=== PATIENT | male | born 1965 | race Caucasian/White ===

== ENCOUNTER → 2020-07-05 15:43 | Outpatient (BNVA) | payer MEDICAID, SELFPAY | PROVIDERS: PCP Internal Medicine; Visit Provider Urology | DX: N48.6 Induration penis plastica (principal) | CPT/HCPCS: 99212 ==

== ENCOUNTER → 2020-07-25 08:20 | Outpatient (BNVA) | payer MEDICAID, SELFPAY | PROVIDERS: PCP Internal Medicine; Visit Provider Nurse Practitioner ==

== ENCOUNTER → 2020-11-21 08:55 | Outpatient (BNVA) | payer MEDICAID, SELFPAY | PROVIDERS: PCP Registered Nurse Community Health; Visit Provider Nurse Practitioner ==

== ENCOUNTER → 2021-05-23 13:21 | Outpatient (BNVA) | payer MEDICAID, SELFPAY | PROVIDERS: PCP Registered Nurse Community Health; Visit Provider Nurse Practitioner | DX: K58.0 Irritable bowel syndrome with diarrhea (principal) ==

== ENCOUNTER → 2021-07-07 15:33 | Outpatient (BNVA) | payer MEDICAID, SELFPAY | PROVIDERS: PCP Registered Nurse Community Health; Visit Provider Urology | DX: N48.6 Induration penis plastica (principal); N52.9 Male erectile dysfunction, unspecified | CPT/HCPCS: 99212 ==

== ENCOUNTER → 2021-11-16 10:37 | Outpatient (BNVA) | payer MEDICAID, SELFPAY | PROVIDERS: PCP Registered Nurse Community Health; Visit Provider Surgery | DX: R10.31 Right lower quadrant pain (principal); G89.29 Other chronic pain | CPT/HCPCS: 99202 ==

== ENCOUNTER 2021-11-30 10:37 | Outpatient (REF) | payer MEDICAID, SELFPAY ==
--- NOTE | ~2021-11-30 | CT_ITS ---
EXAMINATION: CT ABDOMEN AND PELVIS WITHOUT CONTRAST CLINICAL INFORMATION: Right lower quadrant pain. COMPARISON: None. TECHNIQUE: Multidetector volumetric imaging was performed from the superior aspect of the liver through the pubic symphysis. Sagittal and coronal reformatted images were obtained on the technologist's workstation. This CT examination was performed using dose optimization techniques as appropriate, variously including the following: *Automated exposure control *Adjustment of mA and/or kV according to patient size (this includes techniques or standardized protocols for targeted exams where dose is matched to indication/reason for exam; i.e. extremities or head) *Use of iterative reconstruction technique DLP: 528 mGy-cm FINDINGS: LUNG BASES: The lung bases are clear. Heart size is normal. LIVER, GALLBLADDER, AND BILIARY TREE: The liver is normal in size, shape, and diffusely hypoattenuated. No focal hepatic lesion or biliary ductal dilatation is present. The gallbladder is unremarkable with no evidence of radiopaque gallstones, gallbladder wall thickening, or obvious pericholecystic inflammatory changes. PANCREAS: Unremarkable. SPLEEN: Unremarkable. ADRENAL GLANDS: Unremarkable. KIDNEYS AND URETERS: The kidneys are normal in size, shape, and attenuation. No hydronephrosis, hydroureter, or calculi seen. No perinephric stranding. BLADDER: Unremarkable. GASTROINTESTINAL TRACT: There is scattered stool in the colon and the small bowel loops without any distention. Appendix is not visualized. There is nonspecific mild fat stranding in the small bowel mesentery. ABDOMINAL WALL: No significant hernia is appreciated. LYMPH NODES: Normal. VASCULAR: Unremarkable. PELVIC VISCERA: Unremarkable. OSSEOUS STRUCTURES: There are degenerative disc changes with vacuum disc phenomena and ventral and posterior spondylosis. No aggressive lytic or sclerotic process seen. CT/CT abdomen pelvis wo con IMPRESSION: Diffuse hepatic steatosis without focal lesion. No radiopaque gallstones or radiopaque renal calculi or hydronephrosis. Appendix is not visualized. Mild constipation. Fleischner guidelines were followed.
== END 2021-11-30 10:38 | disposition home or self-care (01) ==
LOC: HO.CT 10:37
PROVIDERS: PCP Registered Nurse Community Health; Visit Provider Surgery
DX: R10.31 Right lower quadrant pain (principal); G89.29 Other chronic pain
CPT/HCPCS: 74176

== ENCOUNTER → 2021-12-11 14:41 | Outpatient (BNVA) | payer MEDICAID, SELFPAY | PROVIDERS: PCP Registered Nurse Community Health; Visit Provider Surgery | DX: R10.31 Right lower quadrant pain (principal); G89.29 Other chronic pain | CPT/HCPCS: 99212 ==

== ENCOUNTER 2021-12-18 12:29 | Outpatient (REF) | payer MEDICAID, SELFPAY ==
[2021-12-18 13:40] LABS: MANUAL DIFF FLAG NO
[2021-12-18 13:46] LABS: Basophils Absolute Auto 0.1 X10*3/uL (0.0-0.2); Basophils Percent Auto 0.6 % (0-2); Eosinophils Absolute Auto 0.3 X10*3/uL (0.0-0.4); Hemoglobin 14.2 g/dl (14.0-18.0); Imm Gran Abs Auto 0.03 X10*3/uL (0.00-0.03); Imm Gran Pct Auto 0.4 % (0.0-0.4); Lymphocytes Absolute Auto 3.1 X10*3/uL (1.2-4.9); Lymphocytes Percent Auto 37.2 % (20-40); Mean Corpuscular Hemoglobin 26.9 pg (27.0-33.0); Mean Corpuscular Volume 81.4 fL (80.0-98.0); Mean Platelet Volume 11.6 fL (9.4-12.4); Monocytes Absolute Auto 0.6 X10*3/uL (0.1-1.2); Monocytes Percent Auto 7.7 % (2-11); Neutrophils Absolute Auto 4.3 x10*3/uL (2.0-8.3); Neutrophils Percent Auto 51.1 % (45-73); Platelet Count 186 X10*3/uL (160-400); Red Blood Count 5.28 X10*6/uL (4.60-5.80); White Blood Count 8.4 X10*3/uL (4.8-10.8)
[2021-12-18 14:40] LABS: Alanine Aminotransferase 50 U/L (0-40); Albumin Level 4.4 g/dL (3.5-5.0); Alkaline Phosphatase 79 U/L (39-117); Anion Gap 13 (12-20); Aspartate Amino Transferase 31 U/L (5-37); Bilirubin Total 0.4 mg/dL (0.0-1.0); Blood Urea Nitrogen 11 mg/dL (9-16); Calcium 8.9 mg/dL (8.4-10.2); Carbon Dioxide 27 mmol/L (22-29); Chloride 99 mmol/L (96-108); Estimated Glomerular Filt Rate > 60; Glucose Random 176 mg/dL (60-115); Potassium 4.3 mmol/L (3.3-5.1); Sodium 135 mmol/L (135-145); Total Protein 7.2 g/dL (6.5-8.0)
== END 2021-12-18 12:30 | disposition home or self-care (01) ==
LOC: HO.LAB 12:29
PROVIDERS: PCP Registered Nurse Community Health; Referring Provider Registered Nurse Community Health; Visit Provider Nurse Practitioner
DX: K58.0 Irritable bowel syndrome with diarrhea (principal); K21.9 Gastro-esophageal reflux disease without esophagitis; K62.5 Hemorrhage of anus and rectum; Z80.0 Family history of malignant neoplasm of digestive organs
CPT/HCPCS: 36415; 80053; 85025; 99212

== ENCOUNTER 2022-03-20 10:33 | Day surgery (SDC) | payer MEDICAID, SELFPAY ==
[2022-03-15 12:26] VITALS: BMI 29.6
--- NOTE | 2022-03-19 11:53 | P.CONAN_ITS ---
Documented by User: Kanika Monge NP 03/19/22 11:55 HPI - Anesthesia Eval Consult details Narrative: 57yo M for [facility] Active Problems Active Problems: All Active Problems (Updated 11/16/21 @ 11:23 by Kian Artis MD) Peyronie's disease (Acute) Irritable bowel syndrome with diarrhea (Acute) Epigastric pain (Acute) Rectal bleeding (Acute) GERD (gastroesophageal reflux disease) (Acute) Family history of colon cancer (Acute) Erectile dysfunction (Acute) Chronic pain of right groin (Acute) Hyperlipidemia (Acute) Hypertension (Acute) Past Medical History Medical History Chronic pain of right groin History of left inguinal hernia Hyperlipidemia Hypertension Family History Family History Brother Diabetes Mother Cancer Father Heart problem Maternal Grandmother Colon polyps Surgical History Surgical History (Updated 03/15/22 @ 12:23 by Muriel Rodriguez RN) History of back surgery History of esophagogastroduodenoscopy (EGD) History of nasal surgery History of right inguinal hernia repair Hx of colonoscopy Social History Social History (Updated 12/18/21 @ 12:33 by Alayna Liao) Household Members: Spouse Alcohol intake: current Alcohol intake frequency: does not drink Patient Tobacco Use Status: Never used Tobacco Use of substances other than those prescribed or required for medical reasons: No Advance Directives: No Advance Directives Information Provided: Yes Meds Allergies Allergy/AdvReac Type Severity Reaction Status Date / Time acetaminophen Allergy Intermediate ANXIETY Verified 12/18/21 12:32 [From TYLENOL PM] celecoxib [From CELEBREX] Allergy Intermediate MALAISE Verified 12/18/21 12:32 diphenhydramine Allergy Intermediate ANXIETY Verified 12/18/21 12:32 [From TYLENOL PM] metoprolol [METOPROLOL] Allergy Intermediate RASH Verified 12/18/21 12:32 Home Medications Medication Instructions Recorded Confirmed Last Taken Type amlodipine 10 mg tablet 10 mg PO DAILY 11/16/21 12/11/21 Unknown History atenolol 50 mg tablet 50 mg PO DAILY 11/16/21 12/11/21 Unknown History fluticasone propionate 50 2 spray intranasal DAILY 11/16/21 12/11/21 Unknown History mcg/actuation nasal spray,suspension hydroxyzine HCl 50 mg tablet 50 mg PO TID PRN anxiety 11/16/21 12/11/21 Unknown History loratadine 10 mg tablet 10 mg PO DAILY PRN allergies 11/16/21 12/11/21 Unknown History risperidone 0.5 mg tablet 0.5 mg PO BID 11/16/21 12/11/21 Unknown History rosuvastatin 5 mg tablet 5 mg PO DAILY 11/16/21 12/11/21 Unknown History sertraline 100 mg tablet 200 mg PO DAILY 11/16/21 12/11/21 Unknown History Exam Exam Date and Time: March 19, 2022 1153 Height,Weight and Vital Signs: Height 5 ft 8 in Weight 88.451 kg Pertinent Lab Results Pertinent Lab Results: Laboratory Tests 12/18/21 12/18/21 13:39 Unknown WBC 8.4 Hgb 14.2 Hct 43.0 Plt Count 186 Sodium 135 Potassium 4.3 Chloride 99 Carbon Dioxide 27 BUN 11 Creatinine 1.08 Assessment and Plan Assessment Anesthesia Assessment: Chart Reviewed Documented by User: Jaime Medley MD 03/20/22 11:26 [facility] Past Medical History Medical History Chronic pain of right groin History of left inguinal hernia Hyperlipidemia Hypertension Family History Family History Brother Diabetes Mother Cancer Father Heart problem Maternal Grandmother Colon polyps Family history of problems with anesthesia: No Surgical History Surgical History (Updated 03/15/22 @ 12:23 by Muriel Rodriguez RN) History of back surgery History of esophagogastroduodenoscopy (EGD) History of nasal surgery History of right inguinal hernia repair Hx of colonoscopy History of Problems with Anesthesia: No Social History Social History (Updated 12/18/21 @ 12:33 by Alayna Liao) Household Members: Spouse Alcohol intake: current Alcohol intake frequency: does not drink Patient Tobacco Use Status: Never used Tobacco Use of substances other than those prescribed or required for medical reasons: No Advance Directives: No Advance Directives Information Provided: Yes Meds Allergies Allergy/AdvReac Type Severity Reaction Status Date / Time acetaminophen Allergy Intermediate ANXIETY Verified 12/18/21 12:32 [From TYLENOL PM] celecoxib [From CELEBREX] Allergy Intermediate MALAISE Verified 12/18/21 12:32 diphenhydramine Allergy Intermediate ANXIETY Verified 12/18/21 12:32 [From TYLENOL PM] metoprolol [METOPROLOL] Allergy Intermediate RASH Verified 12/18/21 12:32 Home Medications Medication Instructions Recorded Confirmed Last Taken Type amlodipine 10 mg tablet 10 mg PO DAILY 11/16/21 12/11/21 Unknown History atenolol 50 mg tablet 50 mg PO DAILY 11/16/21 12/11/21 Unknown History fluticasone propionate 50 2 spray intranasal DAILY 11/16/21 12/11/21 Unknown History mcg/actuation nasal spray,suspension hydroxyzine HCl 50 mg tablet 50 mg PO TID PRN anxiety 11/16/21 12/11/21 Unknown History loratadine 10 mg tablet 10 mg PO DAILY PRN allergies 11/16/21 12/11/21 Unknown History risperidone 0.5 mg tablet 0.5 mg PO BID 11/16/21 12/11/21 Unknown History rosuvastatin 5 mg tablet 5 mg PO DAILY 11/16/21 12/11/21 Unknown History sertraline 100 mg tablet 200 mg PO DAILY 11/16/21 12/11/21 Unknown History Exam Airway Mallampati Class: I TM Dist: >3cm Neck ROM: Full Heart: rrr Lungs: clear Assessment and Plan Final Anesthetic Review Family History of Problems with Anesthesia: No History of Problems with Anesthesia: No NPO: Yes ASA Class: II Final Preanesthetic Review: No Changes in Pt Med Stat, Meds/Allgs Chart Reviewed, Consent Obtained/Reviewed and Anes Risks/Benef Reviewed Patient Risk: Low Procedure Risk: Low Anesthetic Plan Anesthetic Plan: MAC: Disposition: Standard PACU
--- NOTE | 2022-03-20 10:43 | P.HPSUR_ITS ---
Pre-Procedural Eval Section A Date of Service: 03/20/22 Section B Chief Complaint: screening colonoscopy Details of Present Illness: patient denies Fh of CRC Relevant Family History (Specify if Yes): No Relevant Social History: Alcohol Use Present Medications: see Short Stay Collaborative assessment Medical History: Significant History (Chronic pain of right groin History of lef t inguinal hernia Hyperlipidemia Hypertension) History of Previous Operations: Relevant previous surgery/procedure and date(s) (History of back surgery History of esophagogastroduodenoscopy (EGD) History of nasal surgery History of right inguinal hernia repair Hx of colonoscopy) Allergies: Allergies Allergy/AdvReac Type Severity Reaction Status Date / Time acetaminophen Allergy Intermediate ANXIETY Verified 12/18/21 12:32 [From TYLENOL PM] celecoxib [From CELEBREX] Allergy Intermediate MALAISE Verified 12/18/21 12:32 diphenhydramine Allergy Intermediate ANXIETY Verified 12/18/21 12:32 [From TYLENOL PM] metoprolol [METOPROLOL] Allergy Intermediate RASH Verified 12/18/21 12:32 Review of Systems Sugical H&P ROS: Negative: Constitution, Cardiovascular, Respiratory, Neurological, Psychiatric, Hem-Onc, Allergic/Immunologic, Gastrointestinal, Genitourinary, Musculoskeletal, Integumentary, Endocrine and Eyes/Ears/Nose/Throat Exam Surgical H&P Exam: Normal: HEENT, Normal: Heart, Normal: Lungs, Normal: Extremities, Normal: Abdomen, Normal: Skin and Normal: Neurological Plan Diagnosis/Plan: Unchanged I have reviewed the history and physical and performed a pertinent physical examination on my patient. No changes have occurred unless specified.
[2022-03-20 11:07] VITALS: BP 135/77; PULSE 75; RESP 16; TEMP 36.8; O2SAT 96; BMI 28.8
--- NOTE | 2022-03-20 11:57 | P.OP_ITS ---
Operative Note Operative Note Date of Service: 03/20/22 Narrative: Operative Information Procedure Description: Colonoscopy Indication: screening Anesthesia: MAC COLONOSCOPY Instrument: Olympus variable stiffness pediatric scope 190L Colonoscopy Monitoring: Vital signs and clinical assessment, continuous EKG monitoring, Pulse oximetry, Carbon Dioxide monitoring and blood pressure monitoring were done throughout the procedure. Colon withdrawal time was 7 minutes. Procedure: The patient was placed in the left lateral decubitis position and pre-procedure medications were administered. After a digital rectal examination of the ano-rectum, the video colonoscope was inserted into the rectum and advanced through the colon to the cecum/TI. The colonoscope was slowly withdrawn in a retrograde panoramic fashion and the colon mucosa was carefully examined including a retroflexed view of the rectum. Findings and interventions are described below. Procedure Difficulty: easy Findings: Terminal Ileum-normal right sided retroflexion was normal Cecum:normal Ascending Colon: normal Transverse Colon -normal Descending Colon:normal Sigmoid Colon: mild diverticulosis Rectum: Retroflexion with small internal hemorrhoids, grade I with skin tags Anorectum - normal Colon preparation: [place] Bowel Preparation Scale Right colon; 2 Transverse colon: 3 Left colon; 3 (0 = Unprepared colon segment with mucosa not seen due to solid stool that cannot be cleared. 1 = Portion of mucosa of the colon segment seen, but other areas of the colon segment not well seen due to staining, residual stool and/or opaque liquid. 2 = Minor amount of residual staining, small fragments of stool and/or opaque liquid, but mucosa of colon segment seen well. 3 = Entire mucosa of colon segment seen well with no residual staining, small fragments of stool or opaque liquid) Impression and Post Procedure Diagnosis: internal hemorrhoids diverticular disease Plan: High fiber diet leaflet Avoid straining at stool, epsom salts and sitz bath, anusol supps or cream Repeat Colonoscopy in 5 years if pos FH of CRC is subsequently confirmed other carrizales 10 yrs or earlier if clinically indicated Above findings were reviewed with the patient and relevant handouts were provided if indicated.
[2022-03-20 12:00] VITALS: BP 109/67; PULSE 71; RESP 17; TEMP 36.3; O2SAT 94
[2022-03-20 12:15] VITALS: BP 120/66; PULSE 71; RESP 17; TEMP 36.3; O2SAT 98
== END 2022-03-20 13:10 | disposition home or self-care (01) ==
PROVIDERS: PCP Registered Nurse Community Health; Visit Provider Internal Medicine Gastroenterology
PROC: 0DJD8ZZ Inspection of Lower Intestinal Tract, Via Natural or Artificial Opening Endoscopic (ICD-10-PCS; CPT 45378; principal; 2022-03-20 11:40)
DX: Z12.11 Encounter for screening for malignant neoplasm of colon (principal); Z80.0 Family history of malignant neoplasm of digestive organs; K57.30 Diverticulosis of large intestine without perforation or abscess without bleeding; K64.0 First degree hemorrhoids; K64.4 Residual hemorrhoidal skin tags; K58.0 Irritable bowel syndrome with diarrhea; K21.9 Gastro-esophageal reflux disease without esophagitis; I10 Essential (primary) hypertension; E78.5 Hyperlipidemia, unspecified; Z79.899 Other long term (current) drug therapy
CPT/HCPCS: 45378

== ENCOUNTER → 2022-04-03 13:13 | Outpatient (BNVA) | payer MEDICAID, SELFPAY | PROVIDERS: PCP Registered Nurse Community Health; Visit Provider Nurse Practitioner | DX: K58.0 Irritable bowel syndrome with diarrhea (principal); K21.9 Gastro-esophageal reflux disease without esophagitis; Z80.0 Family history of malignant neoplasm of digestive organs; Z98.890 Other specified postprocedural states | CPT/HCPCS: 99212 ==

== ENCOUNTER 2022-07-04 08:41 | Outpatient (REF) | payer MEDICAID, SELFPAY ==
[2022-07-04 11:00] LABS: Prostate Specific Antigen 0.42 ng/mL (<0.05-4.0)
== END 2022-07-04 08:42 | disposition home or self-care (01) ==
LOC: HO.10HDL 08:41
PROVIDERS: Visit Provider Urology
DX: Z12.5 Encounter for screening for malignant neoplasm of prostate (principal); N13.8 Other obstructive and reflux uropathy; N40.1 Benign prostatic hyperplasia with lower urinary tract symptoms; N48.6 Induration penis plastica
CPT/HCPCS: 36415; 84153

== ENCOUNTER → 2022-07-10 15:18 | Outpatient (BNVA) | payer MEDICAID, SELFPAY | PROVIDERS: PCP Registered Nurse; Visit Provider Urology | DX: N52.9 Male erectile dysfunction, unspecified (principal); N48.6 Induration penis plastica | CPT/HCPCS: 99212 ==

== ENCOUNTER 2022-08-21 12:07 | Outpatient (REF) | payer MEDICAID, SELFPAY ==
--- NOTE | ~2022-08-21 | XR_ITS ---
EXAMINATION: XR CHEST CLINICAL INFORMATION: Cough COMPARISON: None TECHNIQUE: Chest 2 views FINDINGS: Normal cardiac and mediastinal silhouette. Central pulmonary vascularity is within normal limits. Hazy opacity in the medial aspect of the right lower lung, potentially within the right middle lobe, raising concern for infiltrate from infectious/inflammatory process.. No focal left lung consolidation. No effusion, edema or pneumothorax. XR/XR chest 2V IMPRESSION: Opacification of the medial aspect right lower lung, possibly in the right middle lobe, concerning for infiltrate from infectious/inflammatory process. Recommendation is for a follow-up chest series to be obtained following treatment and/or resolution of symptoms to assure resolution of this appearance.
== END 2022-08-21 12:08 | disposition home or self-care (01) ==
LOC: HO.XRAY 12:07
PROVIDERS: PCP Registered Nurse; Visit Provider Registered Nurse
DX: R05.2 Subacute cough (principal)
CPT/HCPCS: 71046

== ENCOUNTER → 2022-10-02 12:50 | Outpatient (BNVA) | payer MEDICAID, SELFPAY | PROVIDERS: PCP Registered Nurse; Visit Provider Nurse Practitioner | DX: K58.0 Irritable bowel syndrome with diarrhea (principal) | CPT/HCPCS: 99212 ==

== ENCOUNTER 2022-10-04 08:22 | Outpatient (REF) | payer MEDICAID, SELFPAY ==
[2022-10-04 09:20] LABS: Anion Gap 12 (12-20); Blood Urea Nitrogen 13 mg/dL (9-16); Calcium 9.2 mg/dL (8.4-10.2); Carbon Dioxide 29 mmol/L (22-29); Chloride 102 mmol/L (96-108); Estimated Glomerular Filt Rate > 60; Glucose Random 146 mg/dL (60-115); Potassium 4.3 mmol/L (3.3-5.1); Sodium 139 mmol/L (135-145)
== END 2022-10-04 08:23 | disposition home or self-care (01) ==
LOC: HO.LAB 08:22
PROVIDERS: Visit Provider Registered Nurse
DX: E11.9 Type 2 diabetes mellitus without complications (principal); R91.8 Other nonspecific abnormal finding of lung field
CPT/HCPCS: 36415; 80048

== ENCOUNTER 2022-10-16 14:53 | Outpatient (REF) | payer MEDICAID, SELFPAY ==
--- NOTE | ~2022-10-16 | CT_ITS ---
EXAMINATION: CT CHEST WITH CONTRAST CLINICAL INFORMATION: Follow-up lung opacity COMPARISON: Previous chest x-ray August 2022 and abdominal and pelvic CT November 2021 TECHNIQUE: Multidetector volumetric CT imaging of the chest was obtained after the administration of 65 mL of Omnipaque 350 intravenous contrast without immediate adverse reactions. Axial MIP volume rendering provided. Sagittal and coronal reformatted images were obtained. This CT examination was performed using dose optimization techniques as appropriate, variously including the following: *Automated exposure control *Adjustment of mA and/or kV according to patient size (this includes techniques or standardized protocols for targeted exams where dose is matched to indication/reason for exam; i.e. extremities or head) *Use of iterative reconstruction technique DLP: 140 mGy-cm FINDINGS: LUNGS: 2 mm calcified right upper lobe nodule, axial image 30 series 5. 2 mm calcified right upper lobe nodule, axial image 93 series 5. 2 mm calcified nodule in the right lower lobe, axial image 160 series 5. Scarring or subsegmental atelectasis in the medial right middle and right upper lobes. MEDIASTINUM: The mediastinum is normal. PLEURA: There is no pleural effusion. No pleural mass or thickening. AXILLA: No lymphadenopathy. UPPER ABDOMEN: There is fatty infiltration of the liver. There is a round area of increased attenuation high in the left lobe of the liver near the hepatovenous confluence; for example, axial image 53 series 3, measuring approximately 3.5 cm. This is difficult to compare with noncontrast enhanced CT November 2021. This may represent atypical appearance of focal fatty sparing. Small calcifications in the pancreas. OSSEOUS STRUCTURES: Posttraumatic versus congenital changes to the left 4th rib. CT/CT chest w IV con IMPRESSION: Small calcified pulmonary nodules probably representing granulomas. Atelectasis or scarring in the right upper and middle lobes. Fatty liver. Question atypical appearance of focal fatty sparing in the left lobe of the liver. Follow-up liver MRI to exclude a focal lesion should be considered. Fleischner guidelines were followed.
[2022-10-16] MEDS: iohexoL 350 MG/ML 100 ML INFUS..BTL IV (16:04)
== END 2022-10-16 14:54 | disposition home or self-care (01) ==
LOC: HO.CT 14:53
PROVIDERS: PCP Registered Nurse; Visit Provider Registered Nurse
DX: R91.8 Other nonspecific abnormal finding of lung field (principal)
CPT/HCPCS: 71260; Q9967

== ENCOUNTER → 2022-11-27 14:41 | Outpatient (BNVA) | payer MEDICAID, SELFPAY | PROVIDERS: PCP Registered Nurse; Visit Provider Nurse Practitioner | DX: K58.0 Irritable bowel syndrome with diarrhea (principal); K21.9 Gastro-esophageal reflux disease without esophagitis; Z79.899 Other long term (current) drug therapy | CPT/HCPCS: 99212 ==

== ENCOUNTER 2023-05-24 09:35 | Outpatient (REF) | payer MEDICAID, SELFPAY ==
--- NOTE | ~2023-05-24 | MR_ITS ---
EXAMINATION: MR ABDOMEN WITHOUT AND WITH CONTRAST CLINICAL INFORMATION: Hepatic steatosis left lobe COMPARISON: Previous CT of the abdomen and pelvis November 2021 TECHNIQUE: MR abdomen was performed without and with use of 8 mL intravenous Gadavist gadolinium contrast. Postcontrast images are performed in multiphase dynamic sequences. Imaging was performed in 3 planes. FINDINGS: LUNG BASES: The visualized lung bases are unremarkable. LIVER, GALLBLADDER, AND BILIARY TREE: The liver is normal in size, shape and contour. There is heterogeneous fatty infiltration. There is increased enhancement seen in the lateral segment of the left lobe of the liver on early arterial phase imaging only. This was not seen on later sequences or noncontrast sequences. This probably represents a vascular shunt transient perfusion effect. No other focal liver lesion. The gallbladder is normal. No intra or extrahepatic biliary duct dilatation. PANCREAS: Unremarkable. SPLEEN: Normal. ADRENAL GLANDS: Normal. KIDNEYS AND URETERS: The kidneys are normal in size, shape, and enhance symmetrically. No hydronephrosis. No perinephric stranding. GASTROINTESTINAL TRACT: No bowel obstruction. No ascites or fluid collection. ABDOMINAL WALL: No significant hernia is appreciated. LYMPH NODES: No lymphadenopathy. VASCULAR: Unremarkable. OSSEOUS STRUCTURES: Degenerative disc disease of the lower lumbar spine. There is slight increased T2 disc and endplate signal and enhancement at L4-L5. Clinically correlate to exclude possible discitis. Dedicated lumbar spine MRI could be performed if clinically indicated for further evaluation. MR/MR abdomen wo/w con IMPRESSION: Heterogeneous fatty infiltration of the liver. Probable vascular shunt or transient perfusion effect in the lateral segment of the left lobe of the liver. No other focal liver lesion. Abnormal signal and enhancement at L4-L5. Discitis should be excluded. Clinical correlation recommended. This could be further evaluated with lumbar spine MRI if clinically indicated. Findings will be communicated by the [facility]
[2023-05-24] MEDS: gadobutroL 10 ML VIAL IVPUSH (10:38)
== END 2023-05-24 09:36 | disposition home or self-care (01) ==
LOC: HO.MRI 09:35
PROVIDERS: PCP Registered Nurse; Visit Provider Registered Nurse
DX: K76.0 Fatty (change of) liver, not elsewhere classified (principal); E11.9 Type 2 diabetes mellitus without complications
CPT/HCPCS: 74183; A9585

== ENCOUNTER 2023-05-30 09:44 | Outpatient (AMB) | payer MEDICAID, SELFPAY ==
--- NOTE | 2023-05-30 09:48 | MHC.OFFVIS ---
Intake Vital Signs 05/30/23 09:49 Pulse 62 Intake Visit Reasons: 6 months follow up Intake Note: Patient presents to in office visit today in 6 months follow up of IBS. CC: Patient reports doing the same and denies having any new GI concerns today. Enterprise Sales Person Required: Yes Accompanied by: Self / Same As Patient Allergies acetaminophen [From TYLENOL PM] Allergy (Intermediate, Verified 11/27/22 14:51) ANXIETY celecoxib [From CELEBREX] Allergy (Intermediate, Verified 11/27/22 14:51) MALAISE diphenhydramine [From TYLENOL PM] Allergy (Intermediate, Verified 11/27/22 14:51) ANXIETY metoprolol [METOPROLOL] Allergy (Intermediate, Verified 11/27/22 14:51) RASH HPI 6 months follow up HPI Details Assessment & Plan (1) Irritable bowel syndrome with diarrhea: Code(s): K58.0 - Irritable bowel syndrome with diarrhea Plan: Micronesian #More Live He had COVID 3 weeks ago and it was very bad! But he is recovering well now. He has been working at losing weight with his NIDDM dx - his has me on an diet! He does not want to be on insulin. He is only taking the bentyl bid with occasional prn additional dose and he wants me to decrease the amt. I will. ROV 6 mos. (2) GERD (gastroesophageal reflux disease): Comment: He appears was resolved with restoring bowel motility Code(s): K21.9 - Gastro-esophageal reflux disease without esophagitis Medications: Changed From dicyclomine 20 mg PO QID 120 tabs 6RF for abdom inal pain K58.0 - Irritable bowel syndrome wit h diarrhea To dicyclomine 20 mg PO TID 90 t abs 6RF for abdomi nal pain K58.0 - Irritable bowel syndrome wit h diarrhea TODAYS VISIT Florian Garcia Live He is doing much better! His is fixing his knee oatmeal more thickly and this is helping his bowels. He also continues on his dicyclomine which she finds very helpful when he has pain or cramping. He tells me that his PCP at [facility] ordered an MRI of his liver, he is unsure why except I have fat in my liver and something else. The MRI has not yet been read yet by radiology - I will look for this. Return office visit in 6 months. [facility] Medical History Chronic pain of right groin History of left inguinal hernia Hyperlipidemia Hypertension Surgical History History of back surgery History of esophagogastroduodenoscopy (EGD) History of nasal surgery History of right inguinal hernia repair Hx of colonoscopy Family History Brother Diabetes Mother Cancer Father Heart problem Maternal Grandmother Colon polyps Social History Household Members: Spouse Alcohol intake: current Alcohol intake frequency: does not drink Patient Tobacco Use Status: Never used Tobacco Review of Systems Const Denies fatigue, Denies fever(s), Denies night sweats, Denies poor appetite and Denies weight loss Eyes Details: glasses Reports requires corrective lenses ENT Reports Normal hearing present, Denies dental pain, Denies dysphagia, Denies hearing loss, Denies mouth pain, Denies odynophagia, Denies throat swelling, Denies tongue swelling and Reports other (Dentition adequate) Card Reports no additional complaints Resp Reports no additional complaints GI Denies abdominal pain, Denies melena, Denies bloating, Denies hematochezia, Denies constipation, Reports GI cramping, Denies dysphagia, Denies excessive flatus, Denies early satiety, Denies heartburn, Reports diarrhea, Denies nausea, Denies odynophagia, Denies vomiting and Denies hematemesis Skin/Breast Denies pruritus, Denies lesions, Denies rash and Denies jaundice Neuro Reports Normal hearing present and Denies Abnormal speech present Endo Denies fatigue Aller/Immun Denies throat swelling and Denies tongue swelling Physical Exam Vital Signs: Last Vital Signs Pulse 62 05/30/23 09:49 BMI result Body Mass Index 28.0 Const General: cooperative, no acute distress, well developed and well groomed Nutritional Appearance: average body habitus and well nourished Orientation/consciousness: oriented to person, oriented to place and oriented to time Limitations: language barrier HEENT Head: Yes normocephalic and Yes atraumatic Eyes General: appearance normal, both eyes and all related structures Pupils: Equal, round and reactive pupils present Neck Neck: Yes normal visual inspection and Yes no lymphadenopathy Thyroid: Thyroid normal Resp Effort & Inspection: normal respiratory effort and able to speak in complete sentences Auscultation: clear to auscultation bilaterally Cardio Rate: regular rate Rhythm: regular rhythm Heart sounds: Normal, physiologic split S2 sound present Peripheral pulses: radial pulses present and posterior tibial pulses present GI Inspection: No distended and No Abdominal panniculus present Palpation (GI): Soft to palpation, nontender, no guarding, not rigid and No hepatosplenomegaly present Percussion: Yes normal to percussion Auscultation: normal bowel sounds Rectal Exam - Male: Yes deferred Skin General skin exam: no rashes or lesions noted, turgor normal, skin not dry, no jaundice, No spider nevi and no striae Rashes: no rashes Nails: normal Neuro General: oriented to person, oriented to place and oriented to time Cranial nerves: Yes Equal, round and reactive pupils present and Yes Normal hearing present Speech: No Abnormal speech present Extrem General: Yes normal to inspection, No clubbing, No cyanosis and No edema Psych Appearance: grossly normal and well kempt Mental Status: mental status grossly normal Speech and movement: Normal speech and movement present Affect: normal affect Attitude: cooperative Thought process: Normal thought process present and not confabulating Thought content: Normal thought content present Insight: Limited insight present (Psych) Judgement: Limited judgement present (Psych) Assessment & Plan Assessment & Plan (1) Irritable bowel syndrome with diarrhea: Code(s): K58.0 - Irritable bowel syndrome with diarrhea Plan: Micronesian #Randee Live He is doing much better! His is fixing his knee oatmeal more thickly and this is helping his bowels. He also continues on his dicyclomine which she finds very helpful when he has pain or cramping. He tells me that his PCP at [facility] ordered an MRI of his liver, he is unsure why except I have fat in my liver and something else. The MRI has not yet been read yet by radiology - I will look for this. Return office visit in 6 months. (2) GERD (gastroesophageal reflux disease): Comment: He appears was resolved with restoring bowel motility Code(s): K21.9 - Gastro-esophageal reflux disease without esophagitis (3) Epigastric pain: Code(s): R10.13 - Epigastric pain (4) Rectal bleeding: Code(s): K62.5 - Hemorrhage of anus and rectum (5) Family history of colon cancer: Comment: 2021 scope negative repeat 5 years, scope 2018 sessile hyperplastic polyps Code(s): Z80.0 - Family history of malignant neoplasm of digestive organs Plan Micronesian #Randee Live He is doing much better! His is fixing his knee oatmeal more thickly and this is helping his bowels. He also continues on his dicyclomine which she finds very helpful when he has pain or cramping. He tells me that his PCP at [facility] ordered an MRI of his liver, he is unsure why except I have fat in my liver and something else. The MRI has not yet been read yet by radiology - I will look for this. Return office visit in 6 months. Medications: Refilled dicyclomine 20 mg PO TID 90 tabs 6RF for abdominal pain K58.0 - Irritable bowel syndrome with diarrhea Coding Level of Care Code Est Pt Level 3 (90593) Diagnoses Irritable bowel syndrome with diarrhea K58.0 GERD (gastroesophageal reflux disease) K21.9 Epigastric pain R10.13 Rectal bleeding K62.5 Family history of colon cancer Z80.0
[2023-05-30 09:49] VITALS: PULSE 62
== END 2023-05-30 12:57 | disposition home or self-care (01) ==
PROVIDERS: Visit Provider Nurse Practitioner
DX: K58.0 Irritable bowel syndrome with diarrhea (principal); K21.9 Gastro-esophageal reflux disease without esophagitis; K62.5 Hemorrhage of anus and rectum; Z80.0 Family history of malignant neoplasm of digestive organs
CPT/HCPCS: 99213

== ENCOUNTER → 2023-05-30 09:44 | Outpatient (BNVA) | payer MEDICAID, SELFPAY | PROVIDERS: Visit Provider Nurse Practitioner | DX: K58.0 Irritable bowel syndrome with diarrhea (principal); K21.9 Gastro-esophageal reflux disease without esophagitis; K62.5 Hemorrhage of anus and rectum; R10.13 Epigastric pain; Z80.0 Family history of malignant neoplasm of digestive organs | CPT/HCPCS: 99212 ==

== ENCOUNTER 2023-07-03 07:52 | Outpatient (REF) | payer MEDICAID, SELFPAY ==
[2023-07-03 10:21] LABS: Prostate Specific Antigen 0.37 ng/mL (<0.05-4.0)
== END 2023-07-03 07:53 | disposition home or self-care (01) ==
LOC: HO.LAB 07:52
PROVIDERS: PCP Registered Nurse; Visit Provider Urology
DX: N48.6 Induration penis plastica (principal)
CPT/HCPCS: 36415; 84153

== ENCOUNTER 2023-09-13 14:53 | Outpatient (AMB) | payer MEDICAID, SELFPAY ==
--- NOTE | 2023-09-13 15:41 | A.OFFVIS_ITS ---
Intake Intake Visit Reasons: 1Y PSA(set) Intake Note: Patient presents today for a yearly follow-up on PSA Meds- None Allergies to Antibiotic- No Known Allergies Blood Thinner- None Pot Firer Required: Yes Accompanied by: Self / Same As Patient Allergies acetaminophen [From TYLENOL PM] Allergy (Intermediate, Verified 09/13/23 15:45) ANXIETY celecoxib [From CELEBREX] Allergy (Intermediate, Verified 09/13/23 15:45) MALAISE diphenhydramine [From TYLENOL PM] Allergy (Intermediate, Verified 09/13/23 15:45) ANXIETY metoprolol [METOPROLOL] Allergy (Intermediate, Verified 09/13/23 15:45) RASH HPI HPI Comments History of Present Illness Details Nishant is a pleasant male. He is a patient of Dr. Blair. He is seen for the following urologic conditions - Peyronie's disease Yearly evaluation for Peyronie's PSA less than 1. Age 58 can space out checks to every 2-3 years. Peyronie's Disease: PSA 06/18 0.4, 06/21 0.4, 07/24 0.4 Plaque stable with CABRERA and antiinflammatory medications Happy with results. The patient presents for followup up evaluation for penile disorder - improvement with CABRERA - happy with stable issue Primary complaint is penile curvature, dorsally, to the right, Peyronie's disease. The problem has been present starts 10/16. At this time he experiences partial erections sufficient for penetrative intercourse, that last until ejaculation. [place] has is unaffected. Associated symptoms include penile pain No Prior management includes 12/16 vaccum protocol. Strength of urinary stream no change. Associated conditions history of penile trauma No CAD No diabetes No erectile dysfunction No hypertension No peripheral vascular disease No Natural history of Peyronie's and treatment options have bee observation, use of vacuum device protocol, use of inflammatory rollway man. [facility] Medical History Chronic pain of right groin Hyperlipidemia Hypertension History of left inguinal hernia Surgical History History of right inguinal hernia repair History of esophagogastroduodenoscopy (EGD) Hx of colonoscopy History of nasal surgery History of back surgery Family History Brother Diabetes Mother Cancer Father Heart problem Maternal Grandmother Colon polyps Social History Household Members: Spouse Alcohol intake: current Alcohol intake frequency: does not drink Patient Tobacco Use Status: Never used Tobacco Review of Systems Const Denies chills and Denies fever(s) Card Reports no additional complaints and Denies syncope Resp Denies cough GI Denies abdominal pain and Denies heartburn Reports as per HPI and Denies change in libido Neuro Denies syncope Psych Denies change in libido Endo Denies change in libido Physical Exam Const General: cooperative, healthy appearing, comfortable and no acute distress Orientation/consciousness: patient oriented x3 HEENT Face and sinus: Yes normal facial exam Mouth: moist mucous membranes Neck Neck: Yes normal visual inspection, Yes full ROM and Yes trachea midline Chest Chest palpation & inspection: normal inspection of the chest Resp Effort & Inspection: normal respiratory effort, able to speak in complete sentences and no respiratory distress GI Inspection: Yes normal to inspection Back/Spine/Pelvis Cervical Spine: normal cervical lordosis Thoracic/Lumbar Spine: thoracic and lumbar spine normal to inspection Skin General skin exam: no rashes or lesions noted Neuro General: patient oriented x3, gait normal, tone normal and moves all extremities Extrem General: Yes normal to inspection and Yes capillary refill normal Assessment & Plan Assessment & Plan (1) Erectile dysfunction: Code(s): N52.9 - Male erectile dysfunction, unspecified (2) Peyronie's disease: Code(s): N48.6 - Induration penis plastica Plan Twelve month follow-up Patient Instructions: Imaging studies, laboratory and physical exam results were discussed and reviewed in detail. No major barriers to patient understanding were identified. An opportunity to ask questions regarding the treatment plan was provided. All questions were answered. The patient expressed understanding and agreement with the above treatment plan. The patient is aware they should contact our office by phone for worsening of their current condition or the appearance of new urologic symptoms. Compliance is encouraged with any medications and followup testing that is ordered. It is a privilege to participate in the urologic care of your patient. If you have any questions or concerns regarding treatment for the above conditions, or other urologic issues, please do not hesitate to contact me. The office telephone contact is [phone]. This note is constructed using voice recognition software. While every effort has been made to ensure accuracy connie scratcher errors may have been included. Yours sincerely, Dr Jens Rosa MD, [facility] - Urology Providers of Expert, Compassionate Care for the Genitourinary System Coding Level of Care Code Est Pt Level 4 (89074) Diagnoses Erectile dysfunction N52.9 Peyronie's disease N48.6
== END 2023-09-13 16:17 | disposition home or self-care (01) ==
PROVIDERS: Visit Provider Urology
DX: N52.9 Male erectile dysfunction, unspecified (principal); N48.6 Induration penis plastica
CPT/HCPCS: 99213

== ENCOUNTER → 2023-09-13 14:53 | Outpatient (BNVA) | payer MEDICAID, SELFPAY | PROVIDERS: Visit Provider Urology | DX: N52.9 Male erectile dysfunction, unspecified (principal); N48.6 Induration penis plastica | CPT/HCPCS: 99212 ==

== ENCOUNTER 2023-10-07 08:26 | Outpatient (REF) | payer MEDICAID, SELFPAY ==
[2023-10-07 11:37] LABS: MANUAL DIFF FLAG NO
[2023-10-07 11:48] LABS: Basophils Percent Auto 0.5 % (0-2); Eosinophils Absolute Auto 0.2 X10*3/uL (0.0-0.4); Eosinophils Percent Auto 2.9 % (0-4); Hematocrit 45.9 % (42.0-52.0); Hemoglobin 15.3 g/dl (14.0-18.0); Imm Gran Abs Auto 0.03 X10*3/uL (0.00-0.03); Imm Gran Pct Auto 0.4 % (0.0-0.4); Lymphocytes Absolute Auto 2.9 X10*3/uL (1.2-4.9); Lymphocytes Percent Auto 38.2 % (20-40); Mean Corpuscular HGB Conc 33.3 g/dl (31.0-36.0); Mean Corpuscular Hemoglobin 27.8 pg (27.0-33.0); Mean Corpuscular Volume 83.3 fL (80.0-98.0); Mean Platelet Volume 12.6 fL (9.4-12.4); Monocytes Absolute Auto 0.4 X10*3/uL (0.1-1.2); Monocytes Percent Auto 5.5 % (2-11); Neutrophils Percent Auto 52.5 % (45-73); Platelet Count 196 X10*3/uL (160-400); Red Blood Count 5.51 X10*6/uL (4.60-5.80); Red Cell Distribution Width 13.1 % (11.0-16.0); White Blood Count 7.6 X10*3/uL (4.8-10.8)
[2023-10-07 12:24] LABS: Rheumatoid Factor 56.4 IU/mL (<15.0)
[2023-10-07 12:29] LABS: Erythrocyte Sedimentation Rate 2 MM/HR (0-15)
[2023-10-07 12:45] LABS: Alanine Aminotransferase 25 U/L (0-40); Albumin Level 4.5 g/dL (3.5-5.0); Alkaline Phosphatase 66 U/L (39-117); Anion Gap 9 (12-20); Aspartate Amino Transferase 21 U/L (5-37); Bilirubin Direct 0.2 mg/dL (0.0-0.5); Bilirubin Total 0.4 mg/dL (0.0-1.0); Blood Urea Nitrogen 12 mg/dL (9-16); C Reactive Protein 0.14 mg/dL (< or = 0.50); Calcium 9.2 mg/dL (8.4-10.2); Carbon Dioxide 31 mmol/L (22-29); Chloride 104 mmol/L (96-108); Cholesterol 142 mg/dL (<200); Estimated Glomerular Filt Rate > 60; Glucose Random 125 mg/dL (60-115); HDL Cholesterol 42 mg/dL (>40); LDL Cholesterol Calculated 75 mg/dL (<100); Potassium 3.9 mmol/L (3.3-5.1); Sodium 140 mmol/L (135-145); Total Protein 7.5 g/dL (6.5-8.0); Triglycerides 125 mg/dL (<150)
[2023-10-07 12:51] LABS: Creatinine Urine 111.96 mg/dL; Microalbum/Creatinine Ratio Ur 5.3 ug/mg cr (<30)
[2023-10-07 13:02] LABS: TSH reflex Free T4 1.68 uIU/mL (0.32-4.0)
[2023-10-09 15:33] LABS: Anti Nuclear Antibody Screen NEGATIVE (NEGATIVE)
[2023-10-12 18:34] LABS: FIB-ALT 22 U/L (9-46); FIB-Alpha-2-Macroglobulin 122 mg/dL (106-279); FIB-Apolipoprotein A1 171 mg/dL (94-176); FIB-GGT 29 U/L (3-85); FIB-Haptoglobin 88 mg/dL (43-212); FIB-Total Bilirubin 0.4 mg/dL (0.2-1.2); Liver Fibrosis Stage F0; Nec Inflam Act Grade A0; Nec Inflam Act Score 0.07
== END 2023-10-07 08:27 | disposition home or self-care (01) ==
LOC: HO.HHCL 08:26
PROVIDERS: Visit Provider Registered Nurse
DX: Z00.00 Encounter for general adult medical examination without abnormal findings (principal); R52 Pain, unspecified; I10 Essential (primary) hypertension; K76.0 Fatty (change of) liver, not elsewhere classified
CPT/HCPCS: 36415; 80048; 80061; 80076; 81596; 82043; 82570; 84443; 85025; 85652; 86038; 86140; 86431

== ENCOUNTER 2023-11-26 14:49 | Outpatient (AMB) | payer MEDICAID, SELFPAY ==
--- NOTE | 2023-11-26 14:51 | MHC.OFFVIS ---
Vital Signs 11/26/23 14:52 Height 5 ft 8 in Weight 184 lb BMI 28.0 BP 136/82 Blood Pressure Location Lt brachial Position Sitting Pulse 68 Intake Visit Reasons: 6 month follow up Intake Note: Nishant presents to in office 6 months follow up of IBS. CC: Patient states that he was told after having labs done recently that he has a rheumatic condition. He states he has an upcoming appointment with aircraft metalsmith. Financial Foundations Associate Required: Yes Accompanied by: Self / Same As Patient Allergies acetaminophen [From TYLENOL PM] Allergy (Intermediate, Verified 11/26/23 15:02) ANXIETY celecoxib [From CELEBREX] Allergy (Intermediate, Verified 11/26/23 15:02) MALAISE diphenhydramine [From TYLENOL PM] Allergy (Intermediate, Verified 11/26/23 15:02) ANXIETY metoprolol [METOPROLOL] Allergy (Intermediate, Verified 11/26/23 15:02) RASH HPI HPI 6 month follow up: Details: Assessment & Plan (1) Irritable bowel syndrome with diarrhea: Code(s): K58.0 - Irritable bowel syndrome with diarrhea Plan: Croatian #Randee Live He is doing much better! His is fixing his knee oatmeal more thickly and this is helping his bowels. He also continues on his dicyclomine which she finds very helpful when he has pain or cramping. He tells me that his PCP at [facility] ordered an MRI of his liver, he is unsure why except I have fat in my liver and something else. The MRI has not yet been read yet by radiology - I will look for this. Return office visit in 6 months. (2) GERD (gastroesophageal reflux disease): Comment: He appears was resolved with restoring bowel motility Code(s): K21.9 - Gastro-esophageal reflux disease without esophagitis (3) Epigastric pain: Code(s): R10.13 - Epigastric pain (4) Rectal bleeding: Code(s): K62.5 - Hemorrhage of anus and rectum (5) Family history of colon cancer: Comment: 2021 scope negative repeat 5 years, scope 2018 sessile hyperplastic polyps Code(s): Z80.0 - Family history of malignant neoplasm of digestive organs Plan Croatian #Randee Live He is doing much better! His is fixing steel cut oatmeal more thickly and this is helping his bowels. He also continues on his dicyclomine which she finds very helpful when he has pain or cramping. He tells me that his PCP at [facility] ordered an MRI of his liver, he is unsure why except I have fat in my liver and something else. The MRI has not yet been read yet by radiology - I will look for this. Return office visit in 6 months. Medications: Refilled dicyclomine 20 mg PO TID 90 tabs 6RF for abdominal pain K58.0 - Irritable bowel syndrome with diarrhea TODAY'S VISIT Croatian #Ford Knight He says that he has been having pain all over his body, and he had an elevated RF and will be seeing rheumatology. He frequently has pain in the top and bottom of the right food, in the ribs and chest and elbows/shoulders. He is still finding the bentyl helpful for his cramping/IBS ROV 6 mos. [facility] Medical History (Updated 11/26/23 @ 15:05 by AMANUEL Hickman) Diabetes mellitus Chronic pain of right groin Hyperlipidemia Hypertension History of left inguinal hernia Surgical History History of right inguinal hernia repair History of esophagogastroduodenoscopy (EGD) Hx of colonoscopy History of nasal surgery History of back surgery Family History Brother Diabetes Mother Cancer Father Heart problem Maternal Grandmother Colon polyps Social History Household Members: Spouse Alcohol intake: current Alcohol intake frequency: does not drink Patient Tobacco Use Status: Never used Tobacco Review of Systems Const Denies fatigue, Denies fever(s), Denies night sweats, Denies poor appetite and Denies weight loss Eyes Details: glasses Reports requires corrective lenses ENT Reports Normal hearing present, Denies dental pain, Denies dysphagia, Denies hearing loss, Denies mouth pain, Denies odynophagia, Denies throat swelling, Denies tongue swelling and Reports other (Dentition adequate) Card Reports chest pain Resp Reports no additional complaints GI Details: Denies abdominal pain, Denies melena, Denies bloating, Denies hematochezia, Denies constipation, Reports GI cramping, Denies dysphagia, Denies excessive flatus, Denies early satiety, Denies heartburn, Denies diarrhea, Denies nausea, Denies odynophagia, Denies vomiting and Denies hematemesis Musc Reports back pain, Reports myalgias and Reports arthralgias Skin/Breast Denies pruritus, Denies lesions, Denies rash and Denies jaundice Neuro Reports Normal hearing present and Denies Abnormal speech present Endo Denies fatigue Aller/Immun Denies throat swelling and Denies tongue swelling Physical Exam Vital Signs: Last Vital Signs Pulse 68 11/26/23 14:52 BP 136/82 11/26/23 14:52 BMI result Body Mass Index 28.0 Const General: cooperative, no acute distress, well developed and well groomed Nutritional Appearance: well nourished and overweight Orientation/consciousness: oriented to person, oriented to place and oriented to time Limitations: language barrier and ambulation with cane HEENT Head: Yes normocephalic and Yes atraumatic Eyes General: appearance normal, both eyes and all related structures Pupils: Equal, round and reactive pupils present Neck Neck: Yes normal visual inspection and Yes no lymphadenopathy Thyroid: Thyroid normal Resp Effort & Inspection: normal respiratory effort and able to speak in complete sentences Auscultation: clear to auscultation bilaterally Cardio Rate: regular rate Rhythm: regular rhythm Heart sounds: Normal, physiologic split S2 sound present Peripheral pulses: radial pulses present and posterior tibial pulses present GI Inspection: No distended and No Abdominal panniculus present Palpation (GI): Soft to palpation, nontender, no guarding, not rigid and No hepatosplenomegaly present Percussion: Yes normal to percussion Auscultation: normal bowel sounds Rectal Exam - Male: Yes deferred Skin General skin exam: no rashes or lesions noted, turgor normal, skin not dry, no jaundice, No spider nevi and no striae Rashes: no rashes Nails: normal Neuro General: oriented to person, oriented to place and oriented to time Cranial nerves: Yes Equal, round and reactive pupils present and Yes Normal hearing present Speech: No Abnormal speech present Extrem General: Yes normal to inspection, No clubbing, No cyanosis and No edema Psych Appearance: grossly normal and well kempt Mental Status: mental status grossly normal Speech and movement: Normal speech and movement present Affect: normal affect Attitude: cooperative Thought process: Normal thought process present and not confabulating Thought content: Normal thought content present Insight: Fair insight present (Psych) and Limited insight present (Psych) Judgement: Fair judgement present (Psych) and Limited judgement present (Psych) Assessment & Plan Assessment & Plan (1) Irritable bowel syndrome with diarrhea: Code(s): K58.0 - Irritable bowel syndrome with diarrhea Category: Medical (2) GERD (gastroesophageal reflux disease): Comment: He appears was resolved with restoring bowel motility Code(s): K21.9 - Gastro-esophageal reflux disease without esophagitis Category: Medical Plan Croatian #[place], Live He says thata that he has been having pain all over his body, and he had an elevated RF and will be seeing rheumatology. He frequently has pain in the top and bottom of the right food, in the ribs adn chest and elbows/shoulders. He is still finding the bentyl helpful for his cramping/IBS ROV 6 mos. Medications: Refilled dicyclomine 20 mg PO TID 90 tabs 6RF for abdominal pain K58.0 - Irritable bowel syndrome with diarrhea Coding Level of Care Code Est Pt Level 3 (29054) Diagnoses Irritable bowel syndrome with diarrhea K58.0 GERD (gastroesophageal reflux disease) K21.9
[2023-11-26 14:52] VITALS: BP 136/82; PULSE 68; BMI 28.0
== END 2023-11-26 15:16 | disposition home or self-care (01) ==
PROVIDERS: PCP Registered Nurse; Visit Provider Nurse Practitioner
DX: K58.0 Irritable bowel syndrome with diarrhea (principal); K21.9 Gastro-esophageal reflux disease without esophagitis
CPT/HCPCS: 99213

== ENCOUNTER → 2023-11-26 14:49 | Outpatient (BNVA) | payer MEDICAID, SELFPAY | PROVIDERS: PCP Registered Nurse; Visit Provider Nurse Practitioner | DX: K58.0 Irritable bowel syndrome with diarrhea (principal); K21.9 Gastro-esophageal reflux disease without esophagitis | CPT/HCPCS: 99212 ==

== ENCOUNTER 2023-12-13 15:08 | Outpatient (AMB) | payer MEDICAID, SELFPAY ==
--- NOTE | 2023-12-13 15:10 | MHC.OFFVIS ---
Vital Signs 12/13/23 15:19 Height 5 ft 8 in Weight 185 lb 10.067 oz BMI 28.2 BP 118/66 Blood Pressure Location Rt brachial Position Sitting Pulse 76 Pulse Source Pulse Oximeter Pulse Oximetry (%) 95 Oxygen Delivery Method Room Air Intake Visit Reasons: + ANTHONY Intake Note: New patient presents today for consult, referred by [facility] for + RF and polyarthralgia. FH of Lupus Reports pain in multiple joints, occasional swelling Symptoms started many years ago, but have gotten worse. Has tried ibuprofen, tylenol, and tizanidine. Harmonic Analyst Required: Yes Harmonic Analyst Language: Cast Associate Name: Guille [id number] Information Interpreted: clinical only Accompanied by: Self / Same As Patient Allergies acetaminophen [From TYLENOL PM] Allergy (Intermediate, Verified 12/13/23 15:17) ANXIETY celecoxib [From CELEBREX] Allergy (Intermediate, Verified 12/13/23 15:17) MALAISE diphenhydramine [From TYLENOL PM] Allergy (Intermediate, Verified 12/13/23 15:17) ANXIETY metoprolol [METOPROLOL] Allergy (Intermediate, Verified 12/13/23 15:17) RASH HPI Comments Details: Mr. Mckeon 58yoM presents on referral of PCP, for evaluation of +RF. The patient describes pain that floats to different areas of the body. --Weird pain in foot - sometimes on top other times at bottom; also in right elbow area pain floats around and occasionally pain in legs or arm or a specific toe or finger - no swelling, heat or redness - just floating pain. --yesterday right medial lower leg hurt, then pain moves to different parts, and his face was red and felt tired. --shows picture of 'enlarged/swollen' femoral muscles (quads) just above the knees (patellofemoral area)while standing - says it was without pain --BCC - removed skin cancer lesion to left side of nose , no other rashes --no blood in urine; had some in stool due to hemorrhoids, colonoscopy shows diverticulitus no other concerns --needs medicine to sleep; sometimes feel tired in the morning, not sure why. says he snores night but not all the time --denies CTD and other inflammatory symptoms. --mild muscle pain that also jumps around [facility] Medical History (Updated 12/13/23 @ 15:56 by Belen Prater [facility]) Myalgia Pain in joint, multiple sites Rheumatoid factor positive Diabetes mellitus Chronic pain of right groin Hyperlipidemia Hypertension History of left inguinal hernia Surgical History History of right inguinal hernia repair History of esophagogastroduodenoscopy (EGD) Hx of colonoscopy History of nasal surgery History of back surgery Family History (Updated 12/13/23 @ 15:18 by AMANUEL Roman) Brother Diabetes Mother Cancer Father Heart problem Maternal Grandmother Colon polyps Lupus Social History (Updated 12/13/23 @ 15:17 by AMANUEL Roman) Household Members: Spouse Alcohol intake: current Alcohol intake frequency: holidays/special occasions only Patient Tobacco Use Status: Never used Tobacco Current occupational status: disabled Review of Systems Const All systems reviewed & are unremarkable except as noted in HPI and below Physical Exam Vital Signs: Last Vital Signs Pulse 76 12/13/23 15:19 BP 118/66 12/13/23 15:19 Pulse Ox 95 12/13/23 15:19 Oxygen Delivery Method Room Air 12/13/23 15:19 BMI result Body Mass Index 28.2 APPEARANCE: Patient in no acute distress EYES no redness, normal EARS:? External ear normal. NOSE/SINUS:? Airflow through both nares, no nasal discharge, no bleeding THROAT:? Oral mucosa moist, no ulcerations NECK:? No thyromegaly or masses, no adenopathy, trachea midline. HEART:? Regular rhythm, S1-S2 heard, no murmurs, rubs or gallops. LUNG:? Clear to percussion and auscultation EXTREMITIES:? No edema, no calf tenderness, normal peripheral pulses. NEURO:? Oriented and alert x3.? No focal weakness.? walks with a cane. SKIN:? There are no skin lesions evident. No objective signs of Raynaud's phenomenon. JOINT EXAM: Cervical Spine:.? Full range of motion without pain; no tenderness. Thoracic Spine:.? No scoliosis.? No tenderness on palpation. Lumbar Spine:.? Alignment normal.? Full range of motion without pain, no tenderness. Chest Wall:.? No tenderness, swelling, increased warmth or erythema. Hands:.? Normal pain-free range of motion without tenderness, swelling, increased warmth or erythema. Able to make a full fist and has a good airport operations manager strength. Wrists:.? Normal pain-free range of motion without tenderness, swelling, increased warmth or erythema. Elbows:. Normal pain-free range of motion without tenderness, swelling, increased warmth or erythema. Shoulders:.?? Full range of motion without pain. No tenderness, weakness, swelling, increased warmth or erythema. Hips:.? Full range of motion without pain. Hip bursa:.? No tenderness. Knees:.?? Normal pain-free range of motion without tenderness, swelling, increased warmth or erythema.? There is no effusion or crepitation Ankles:.? Normal pain-free range of motion without tenderness, swelling, increased warmth or erythema. Feet:.? Normal pain-free range of motion without tenderness, swelling, increased warmth or erythema. Tender points:? No tenderness to digital palpation at the occiput, trapezius, second rib, lateral epicondyle, knees, greater trochanter and gluteal area bilaterally. ? Results Reviewed Results Reviewed: Laboratory Tests 07/03/23 10/07/23 08:10 08:33 WBC 7.6 RBC 5.51 Hgb 15.3 Hct 45.9 ESR 2 AST 21 ALT 25 C-Reactive Protein 0.14 Prostate Specific Ag 0.37 TSH 1.68 Rheumatoid Factor 56.4 H ANTHONY Screen NEGATIVE Assessment & Plan Assessment & Plan (1) Myalgia: Code(s): M79.10 - Myalgia, unspecified site Category: Medical (2) Pain in joint, multiple sites: Code(s): M25.50 - Pain in unspecified joint Category: Medical Plan #Pain with +RF/Myalgia: The patient does not have a clinical presentation for an inflammatory arthritis or CTD. There are no signs of joint swelling and tenderness on PE and he does not endorse that. He does walk with a cane and have been having groin pain since right inguinal surgery 2016. He was evaluated (10/2021 general surgery visit) and Scanned with no adverse findings. I will order a Rheum panel and imaging of hangs and knees to assess further. I will include Immuno globulins for hyperactivity and ESR/CRP for systemic inflammation. The patient a history of Basil cell carcinoma skin cancer. 30 minutes reviewing history, evaluating patient and documenting. f/u 1 month to review findings Orders: Orders Sjogren's Antibodies 12/13/23 M79.10 - Myalgia, unspecified site Creatine Kinase Total 12/13/23 M79.10 - Myalgia, unspecified site C Reactive Protein 12/13/23 M79.10 - Myalgia, unspecified site Erythrocyte Sedimentation Rate 12/13/23 M79.10 - Myalgia, unspecified site Immunofixation Pnl, Serum 12/13/23 M79.10 - Myalgia, unspecified site Immunoglobulins,IgG IgA IgM 12/13/23 M79.10 - Myalgia, unspecified site XR knee LT 3V 12/13/23 M25.50 - Pain in unspecified joint Protein Electrophoresis, Serum 12/13/23 M79.10 - Myalgia, unspecified site Other Ref Test - Misc 12/13/23 M25.50 - Pain in unspecified joint, M79.10 - Myalgia, unspecified site XR hand RT 2V 12/13/23 M25.50 - Pain in unspecified joint XR hand LT 2V 12/13/23 M25.50 - Pain in unspecified joint XR knee RT 3V 12/13/23 M25.50 - Pain in unspecified joint Coding Level of Care Code New Pt Level 4 (08550) Diagnoses Myalgia M79.10 Pain in joint, multiple sites M25.50
[2023-12-13 15:19] VITALS: BP 118/66; PULSE 76; O2SAT 95; BMI 28.2
== END 2023-12-13 16:09 | disposition home or self-care (01) ==
PROVIDERS: PCP Registered Nurse; Visit Provider Nurse Practitioner Family
DX: M79.10 Myalgia, unspecified site (principal); M25.50 Pain in unspecified joint
CPT/HCPCS: 99204

== ENCOUNTER 2023-12-13 15:08 | Outpatient (REF) | payer MEDICAID, SELFPAY ==
--- NOTE | ~2023-12-13 | XR_ITS ---
EXAMINATION: Bilateral knee series CLINICAL INFORMATION: Pain in unspecified joint. Patient reports history of rheumatoid arthritis COMPARISON: None. TECHNIQUE: 3 views of each knee FINDINGS: Right knee: There is chondrocalcinosis. Patellofemoral compartment marginal osteophytes without joint space narrowing indicative of mild osteoarthritis. The medial lateral compartments are normal. No effusion. No erosions. Left knee: There is chondrocalcinosis. There are small marginal osteophytes about the lateral compartment and patellofemoral compartment indicative of mild arthrosis. No joint space narrowing. Compartment unremarkable other than chondrocalcinosis. There is a bony excrescence extending off the posterior lateral aspect of the tibia likely reflecting a sessile osteochondroma no visible cartilaginous cap. Surrounding soft tissues unremarkable. XR/XR knee LT 3V IMPRESSION: RIGHT KNEE: Chondrocalcinosis. Mild osteoarthritis. LEFT KNEE: Chondrocalcinosis. Mild osteoarthritis. Sessile osteochondroma.
--- NOTE | ~2023-12-13 | XR_ITS ---
EXAMINATION: Bilateral hand series CLINICAL INFORMATION: Pain in unspecified joint. Patient reports history of rheumatoid arthritis COMPARISON: None. TECHNIQUE: 3 views of each hand FINDINGS: Right hand: The bones joints and soft tissues are normal. No erosions. Normal alignment. Left hand: The bones joints and soft tissues are normal. No erosions. Normal alignment. XR/XR hand LT 2V IMPRESSION: RIGHT HAND: Normal. LEFT HAND: Normal.
--- NOTE | ~2023-12-13 | XR_ITS ---
EXAMINATION: Bilateral hand series CLINICAL INFORMATION: Pain in unspecified joint. Patient reports history of rheumatoid arthritis COMPARISON: None. TECHNIQUE: 3 views of each hand FINDINGS: Right hand: The bones joints and soft tissues are normal. No erosions. Normal alignment. Left hand: The bones joints and soft tissues are normal. No erosions. Normal alignment. XR/XR hand RT 2V IMPRESSION: RIGHT HAND: Normal. LEFT HAND: Normal.
--- NOTE | ~2023-12-13 | XR_ITS ---
EXAMINATION: Bilateral knee series CLINICAL INFORMATION: Pain in unspecified joint. Patient reports history of rheumatoid arthritis COMPARISON: None. TECHNIQUE: 3 views of each knee FINDINGS: Right knee: There is chondrocalcinosis. Patellofemoral compartment marginal osteophytes without joint space narrowing indicative of mild osteoarthritis. The medial lateral compartments are normal. No effusion. No erosions. Left knee: There is chondrocalcinosis. There are small marginal osteophytes about the lateral compartment and patellofemoral compartment indicative of mild arthrosis. No joint space narrowing. Compartment unremarkable other than chondrocalcinosis. There is a bony excrescence extending off the posterior lateral aspect of the tibia likely reflecting a sessile osteochondroma no visible cartilaginous cap. Surrounding soft tissues unremarkable. XR/XR knee RT 3V IMPRESSION: RIGHT KNEE: Chondrocalcinosis. Mild osteoarthritis. LEFT KNEE: Chondrocalcinosis. Mild osteoarthritis. Sessile osteochondroma.
[2023-12-13 18:02] LABS: C Reactive Protein 0.13 mg/dL (< or = 0.50)
[2023-12-13 18:46] LABS: Erythrocyte Sedimentation Rate 2 MM/HR (0-15)
[2023-12-16 23:19] LABS: Antibody to SS-A Antigen <1.0 NEG AI (<1.0 NEG); Antibody to SS-B Antigen <1.0 NEG AI (<1.0 NEG)
[2023-12-17 16:03] LABS: IgA 256 mg/dL (47-310); IgG 1196 mg/dL (600-1640); IgM 105 mg/dL (50-300)
[2023-12-17 22:13] LABS: Prot Elec - Albumin 4.5 g/dL (3.8-4.8); Prot Elec - Alpha1 0.2 g/dL (0.2-0.3); Prot Elec - Alpha2 0.5 g/dL (0.5-0.9); Prot Elec - Beta 1 0.5 g/dL (0.4-0.6); Prot Elec - Beta 2 0.4 g/dL (0.2-0.5); Prot Elec - Gamma 1.1 g/dL (0.8-1.7); Prot Elec - Total Protein 7.1 g/dL (6.1-8.1)
== END 2023-12-13 15:09 | disposition home or self-care (01) ==
LOC: HO.LAB 15:08
PROVIDERS: PCP Registered Nurse; Visit Provider Nurse Practitioner Family
DX: M79.10 Myalgia, unspecified site (principal); M25.50 Pain in unspecified joint
CPT/HCPCS: 73120; 73562; 82550; 82784; 84165; 85652; 86140; 86235; 86334; 99212

== ENCOUNTER 2024-03-31 14:43 | Outpatient (REF) | payer MEDICAID, SELFPAY ==
[2024-03-31 16:23] LABS: MANUAL DIFF FLAG NO
[2024-03-31 16:41] LABS: Basophils Percent Auto 0.6 % (0-2); Eosinophils Absolute Auto 0.3 X10*3/uL (0.0-0.4); Eosinophils Percent Auto 3.6 % (0-4); Hematocrit 41.3 % (42.0-52.0); Hemoglobin 13.9 g/dl (14.0-18.0); Imm Gran Abs Auto 0.02 X10*3/uL (0.00-0.03); Imm Gran Pct Auto 0.3 % (0.0-0.4); Lymphocytes Absolute Auto 2.6 X10*3/uL (1.2-4.9); Lymphocytes Percent Auto 37.6 % (20-40); Mean Corpuscular HGB Conc 33.7 g/dl (31.0-36.0); Mean Corpuscular Hemoglobin 28.3 pg (27.0-33.0); Mean Corpuscular Volume 84.1 fL (80.0-98.0); Mean Platelet Volume 11.4 fL (9.4-12.4); Monocytes Absolute Auto 0.5 X10*3/uL (0.1-1.2); Monocytes Percent Auto 6.7 % (2-11); Neutrophils Absolute Auto 3.6 x10*3/uL (2.0-8.3); Neutrophils Percent Auto 51.2 % (45-73); Platelet Count 185 X10*3/uL (160-400); Red Blood Count 4.91 X10*6/uL (4.60-5.80); Red Cell Distribution Width 13.1 % (11.0-16.0)
[2024-03-31 16:56] LABS: Appearance Urine Clear; Color Urine Yellow; Glucose Urine UA Negative (Negative); Leukocyte Esterase Urine Negative (Negative); Nitrite Urine Negative (Negative); PH 5.5 (5.0-9.0); Specific Gravity - Urine 1.025 (1.005-1.025); Urine Blood Negative (Negative); Urine Ketones Negative (Negative); Urine Protein Negative (Neg-Trace)
[2024-03-31 16:59] LABS: Bacteria Urine None Seen (None Seen); Hyaline Casts Urine 0-2 /LPF (0-2); RBC Urine 0-2 /HPF (0-2); Squamous Epithelial Cell Urine 0-2 /HPF (0-2); WBC Urine 0-5 /HPF (0-5)
[2024-03-31 17:17] LABS: Alanine Aminotransferase 23 U/L (0-40); Albumin Level 4.3 g/dL (3.5-5.0); Alkaline Phosphatase 70 U/L (39-117); Anion Gap 12 (12-20); Aspartate Amino Transferase 16 U/L (5-37); Bilirubin Total 0.2 mg/dL (0.0-1.0); Blood Urea Nitrogen 15 mg/dL (9-16); C Reactive Protein 0.22 mg/dL (< or = 0.50); Carbon Dioxide 28 mmol/L (22-29); Chloride 102 mmol/L (96-108); Estimated Glomerular Filt Rate > 60; Glucose Random 169 mg/dL (60-115); Iron 98 mcg/dL (45-160); Percent Iron Saturation 35 % (15-50); Potassium 3.8 mmol/L (3.3-5.1); Sodium 138 mmol/L (135-145); Total Iron Binding Capacity 278 mcg/dL (228-428); Total Protein 7.1 g/dL (6.5-8.0); Unsaturated Iron Binding 180 ug/dL; Uric Acid 5.3 mg/dL (3.4-7.0)
[2024-03-31 17:19] LABS: Erythrocyte Sedimentation Rate 3 MM/HR (0-15)
[2024-03-31 17:31] LABS: Ferritin 104 ng/mL (20-250); TSH reflex Free T4 1.51 uIU/mL (0.32-4.0)
[2024-03-31 17:32] LABS: Creatinine Urine 189.26 mg/dL; Protein/Creatinine Ratio, Ur 0.05 (<0.2); Total Protein Urine Random 9 mg/dL (<12)
[2024-04-01 08:22] LABS: HBS Num1 2.08 mIU/mL (0-7.99); HBc Num1 0.08 S/CO (0.00-0.79); Hepatitis A Antibody IgM 0.13 Index (0-0.79); Hepatitis B Core Antibody Nonreactive (Nonreactive); Hepatitis B Surface Antigen Negative (Negative); ~HepC Num1 0.07 S/CO (0.00-0.79); ~Hepatitis A Antibody IgM Nonreactive (Nonreactive); ~Hepatitis B Surface Antibody NONREACTIVE (Nonreactive); ~Hepatitis C Antibody Nonreactive (Nonreactive)
[2024-04-01 12:33] LABS: Complement C3 129 mg/dL (82-185)
[2024-04-01 13:53] LABS: Anti DNA DS Antibody <1 IU/mL; SM/Ribonucleoprotein Ab <1.0 NEG AI (<1.0 NEG); Smith Protein <1.0 NEG AI (<1.0 NEG)
[2024-04-01 18:08] LABS: Transferrin 249 mg/dL (188-341)
[2024-04-03 03:03] LABS: TS Negative Control Passed; TS Panel A 0; TS Panel B 0; TS Positive Control Passed; TSpotTB Negative (Negative)
[2024-04-03 16:03] LABS: Cyclic Citrullinated Peptide <16 UNITS
== END 2024-03-31 14:44 | disposition home or self-care (01) ==
LOC: HO.LAB 14:43
PROVIDERS: PCP Registered Nurse; Visit Provider Student in an Organized Health Care Education/Training Program
DX: M06.9 Rheumatoid arthritis, unspecified (principal); M32.9 Systemic lupus erythematosus, unspecified; D50.9 Iron deficiency anemia, unspecified; M11.20 Other chondrocalcinosis, unspecified site; Z11.7 Encounter for testing for latent tuberculosis infection; Z11.59 Encounter for screening for other viral diseases; M10.9 Gout, unspecified; M25.50 Pain in unspecified joint; R76.8 Other specified abnormal immunological findings in serum
CPT/HCPCS: 36415; 80053; 81001; 82570; 82728; 83540; 83970; 84156; 84443; 84466; 84550; 85025; 85652; 86140; 86160; 86200; 86225; 86235; 86481; 86704; 86706; 86709; 86803; 87340; 99212

== ENCOUNTER 2024-03-31 14:43 | Outpatient (AMB) | payer MEDICAID, SELFPAY ==
--- NOTE | 2024-03-31 15:00 | A.OFFVIS_ITS ---
Vital Signs 03/31/24 15:08 Height 5 ft 8 in Weight 186 lb 15.232 oz BMI 28.4 BP 120/70 Blood Pressure Location Rt brachial Position Sitting Pulse 65 Pulse Source Pulse Oximeter Pulse Oximetry (%) 95 Oxygen Delivery Method Room Air Intake Visit Reasons: +RF with Arthralgia Intake Note: Patient presents for +RF with Arthralgia. Propulsion Systems Engineer Required: Yes Propulsion Systems Engineer Language: Tierce Filler Services: Propulsion Systems Engineer Present Propulsion Systems Engineer Name: Manuela# [id number] Information Interpreted: non-clinical & clinical Allergies acetaminophen [From TYLENOL PM] Allergy (Intermediate, Verified 03/31/24 15:07) ANXIETY celecoxib [From CELEBREX] Allergy (Intermediate, Verified 03/31/24 15:07) MALAISE diphenhydramine [From TYLENOL PM] Allergy (Intermediate, Verified 03/31/24 15:07) ANXIETY metoprolol [METOPROLOL] Allergy (Intermediate, Verified 03/31/24 15:07) RASH Medication List - Last Reconciled 03/31/24 by Keyur Enriquez MD amlodipine 10 mg PO DAILY atenolol 50 mg PO DAILY benzonatate 100 mg PO DAILY PRN dicyclomine 20 mg PO TID doxepin 10 mg PO BEDTIME PRN hydroxyzine HCl 50 mg PO TID PRN lidocaine 5% 1 patch topical DAILY metformin ER 500 mg PO BID prednisone Take 2 tabs daily for 2 weeks then 1 tab daily for 2 weeks then stop risperidone 0.5 mg PO BID rosuvastatin 5 mg PO DAILY sertraline 200 mg PO DAILY tizanidine 2 mg PO TID PRN HPI Comments Details: This is a 59-year-old male who presents for evaluation of a positive rheumatoid factor in the setting of polyarthralgias. He states that last November he woke up 1 day with right knee pain and swelling, the swelling self-resolved next day. He had similar pain and swelling of his right knee in 2020. It self-resolved. He states however that he has different pains in different joints such as his wrists, other knee, ankles. He wakes up with fatigue that can last anywhere from half an hour or until the evening. 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 He states that he was vaccinated for hepatitis. [facility] Medical History (Updated 03/31/24 @ 16:40 by Keyur Enriquez MD) Myalgia Pain in joint, multiple sites Rheumatoid factor positive Diabetes mellitus Chronic pain of right groin Hyperlipidemia Hypertension History of left inguinal hernia Surgical History History of right inguinal hernia repair History of esophagogastroduodenoscopy (EGD) Hx of colonoscopy History of nasal surgery History of back surgery Family History Brother Diabetes Mother Cancer Father Heart problem Maternal Grandmother Colon polyps Lupus Social History Household Members: Spouse Alcohol intake: current Alcohol intake frequency: holidays/special occasions only Patient Tobacco Use Status: Never used Tobacco Current occupational status: disabled Review of Systems Const Reports fatigue Musc Reports arthralgias, Reports joint swelling and Reports stiffness Endo Reports fatigue Physical Exam Vital Signs: Last Vital Signs Pulse 65 03/31/24 15:08 BP 120/70 03/31/24 15:08 Pulse Ox 95 03/31/24 15:08 Oxygen Delivery Method Room Air 03/31/24 15:08 BMI result Body Mass Index 28.4 Const General: cooperative, healthy appearing and comfortable Nutritional Appearance: overweight Orientation/consciousness: patient oriented x3 Limitations: ambulation with cane HEENT Head: Yes normocephalic and Yes atraumatic Mouth: moist mucous membranes Resp Effort & Inspection: normal respiratory effort and able to speak in complete sentences Auscultation: clear to auscultation bilaterally Cardio Rate: regular rate Rhythm: regular rhythm Skin General skin exam: no rashes or lesions noted Neuro General: patient oriented x3 Extrem Other: Minimal osteoarthritic changes of both hands with no active synovitis No knee pain with flexion and extension bilaterally Normal nailfold capillaroscopy Patient showed me a picture of his right knee that was swollen in 11/2023 and another picture in 2020 Assessment & Plan Assessment & Plan (1) Pain in joint, multiple sites: Code(s): M25.50 - Pain in unspecified joint Category: Medical Plan: This is a 59-year-old male who presents for evaluation of positive rheumatoid factor in the setting of polyarthralgias. She showed me a couple of pictures when he had right knee swelling. He gets alternating joint pains affecting different joints including hands, wrists, elbows, knees. Only rarely associated with swelling. Fatigue that starts in the morning and improves as the day goes on. I will order comprehensive serology to screen for underlying autoimmune rheumatic disease. His knee x-rays showed chondrocalcinosis. I will order additional blood work to check for secondary causes of pseudogout Start prednisone therapeutic trial Follow-up in 4 weeks (2) Rheumatoid factor positive: Code(s): R76.8 - Other specified abnormal immunological findings in serum Category: Medical Plan: As above Plan This is patient's 1st visit with me. I spent 45 minutes reviewing patient's chart, evaluating patient, ordering diagnostic workup, counseling patient and documenting in the chart Orders: Orders Complete Blood Count Auto Diff Today M06.9 - Rheumatoid arthritis, unspecified Comprehensive Met. Panel Today M06.9 - Rheumatoid arthritis, unspecified Erythrocyte Sedimentation Rate Today M06.9 - Rheumatoid arthritis, unspecified Hepatitis A,B,C Profile Today Z11.59 - Encounter for screening for other viral diseases Cyclic Citrullinated Peptide Today M06.9 - Rheumatoid arthritis, unspecified Anti Extractable Nuclear Ag Today M32.9 - Systemic lupus erythematosus, unspecified Anti DNA DS Antibody Today M32.9 - Systemic lupus erythematosus, unspecified Protein Creatinine Ratio, Ur Today M32.9 - Systemic lupus erythematosus, unspecified Ferritin Today D50.9 - Iron deficiency anemia, unspecified Transferrin Today D50.9 - Iron deficiency anemia, unspecified TSH reflex Free T4 Today M11.20 - Other chondrocalcinosis, unspecified site Parathyroid Hormone Intact Today M11.20 - Other chondrocalcinosis, unspecified site C Reactive Protein Today M06.9 - Rheumatoid arthritis, unspecified T Spot TB Today Z11.7 - Encounter for testing for latent tuberculosis infection Uric Acid Today M10.9 - Gout, unspecified Complement C3 Today M32.9 - Systemic lupus erythematosus, unspecified Complement C4 Today M32.9 - Systemic lupus erythematosus, unspecified UA w Microscopic Today M32.9 - Systemic lupus erythematosus, unspecified IRON PROFILE Today D50.9 - Iron deficiency anemia, unspecified Medications: New prednisone Take 2 tabs daily for 2 weeks then 1 tab daily for 2 weeks then stop 45 tabs 0RF Coding Level of Care Code Est Pt Level 5 (63208) Diagnoses Pain in joint, multiple sites M25.50 Rheumatoid factor positive R76.8
[2024-03-31 15:08] VITALS: BP 120/70; PULSE 65; O2SAT 95; BMI 28.4
== END 2024-03-31 15:45 | disposition home or self-care (01) ==
PROVIDERS: PCP Registered Nurse; Visit Provider Student in an Organized Health Care Education/Training Program
DX: M25.59 Pain in other specified joint (principal); R76.8 Other specified abnormal immunological findings in serum
CPT/HCPCS: 99215

== ENCOUNTER 2024-05-06 12:32 | Outpatient (AMB) | payer MEDICAID, SELFPAY ==
--- NOTE | 2024-05-06 12:36 | A.OFFVIS_ITS ---
Vital Signs 05/06/24 12:43 Height 5 ft 8 in Weight 186 lb 11.704 oz BMI 28.4 BP 115/62 Blood Pressure Location Rt brachial Position Sitting Pulse 69 Pulse Source Pulse Oximeter Pulse Oximetry (%) 95 Oxygen Delivery Method Room Air Intake Visit Reasons: +RF/pseudogout/CM Intake Note: Patient presents for +RF/Pseudogout. Payable Representative Required: Yes Payable Representative Language: [employer] Chief Scientist Services: Payable Representative Present Payable Representative Name: Brianda [id number] Allergies acetaminophen [From TYLENOL PM] Allergy (Intermediate, Verified 05/06/24 12:41) ANXIETY celecoxib [From CELEBREX] Allergy (Intermediate, Verified 05/06/24 12:41) MALAISE diphenhydramine [From TYLENOL PM] Allergy (Intermediate, Verified 05/06/24 12:41) ANXIETY metoprolol [METOPROLOL] Allergy (Intermediate, Verified 05/06/24 12:41) RASH Medication List - Last Reconciled 05/06/24 by Keyur Enriquez MD amlodipine 10 mg PO DAILY atenolol 50 mg PO DAILY benzonatate 100 mg PO DAILY PRN dicyclomine 20 mg PO TID doxepin 10 mg PO BEDTIME PRN hydroxyzine HCl 50 mg PO TID PRN lidocaine 5% 1 patch topical DAILY metformin ER 500 mg PO BID risperidone 0.5 mg PO BID rosuvastatin 5 mg PO DAILY sertraline 200 mg PO DAILY tizanidine 2 mg PO TID PRN HPI Comments Details: Patient returns for follow-up. He stated that prednisone provided about 50% improvement in symptoms. He continues to have similar symptoms of alternating and migratory joint pains especially in the morning. Initial history: This is a 59-year-old male who presents for evaluation of a positive rheumatoid factor in the setting of polyarthralgias. He states that last November he woke up 1 day with right knee pain and swelling, the swelling self- resolved next day. He had similar pain and swelling of his right knee in 2020. It self-resolved. He states however that he has different pains in different joints such as his wrists, other knee, ankles. He wakes up with fatigue that can last anywhere from half an hour or until the evening. 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 He states that he was vaccinated for hepatitis. [facility] Medical History Myalgia Pain in joint, multiple sites Rheumatoid factor positive Diabetes mellitus Chronic pain of right groin Hyperlipidemia Hypertension History of left inguinal hernia Surgical History History of right inguinal hernia repair History of esophagogastroduodenoscopy (EGD) Hx of colonoscopy History of nasal surgery History of back surgery Family History Brother Diabetes Mother Cancer Father Heart problem Maternal Grandmother Colon polyps Lupus Maternal Aunt Rheumatoid arthritis Maternal Uncle Rheumatoid arthritis Social History Household Members: Spouse Alcohol intake: current Alcohol intake frequency: holidays/special occasions only Patient Tobacco Use Status: Never used Tobacco Current occupational status: disabled Review of Systems Musc Reports arthralgias, Reports joint swelling and Reports stiffness Physical Exam Vital Signs: Last Vital Signs Pulse 69 05/06/24 12:43 BP 115/62 05/06/24 12:43 Pulse Ox 95 05/06/24 12:43 Oxygen Delivery Method Room Air 05/06/24 12:43 BMI result Body Mass Index 28.4 Const General: cooperative, healthy appearing and comfortable Nutritional Appearance: overweight Orientation/consciousness: patient oriented x3 Limitations: ambulation with cane HEENT Head: Yes normocephalic and Yes atraumatic Mouth: moist mucous membranes Resp Effort & Inspection: normal respiratory effort and able to speak in complete sentences Auscultation: clear to auscultation bilaterally Cardio Rate: regular rate Rhythm: regular rhythm Skin General skin exam: no rashes or lesions noted Neuro General: patient oriented x3 Extrem Other: Minimal osteoarthritic changes of both hands with no active synovitis No knee pain with flexion and extension bilaterally Normal nailfold capillaroscopy Patient showed me a picture of his right knee that was swollen in 11/2023 and another picture in 2020 Assessment & Plan Assessment & Plan (1) Rheumatoid factor positive: Code(s): R76.8 - Other specified abnormal immunological findings in serum Category: Medical Plan: This is a 59-year-old male who presents for evaluation of positive rheumatoid f actor in the setting of polyarthralgias. She showed me a couple of pictures when he had right knee swelling. He gets alternating joint pains affecting different joints including hands, wrists, elbows, knees. Only rarely associated with swelling. Fatigue that starts in the morning and improves as the day goes on. Comprehensive serology is otherwise negative with negative hepatitis panel and normal inflammatory markers He has a maternal aunt and maternal uncle with rheumatoid arthritis. I have some suspicion of inflammatory arthritis. I would like to try hydroxychloroquine for about 3 months. Discussed risks and benefits of hydroxychloroquine. Patient agreed to proceed. Start hydroxychloroquine 200 mg Twice daily Follow-up in 3 months (2) Long-term use of hydroxychloroquine: Code(s): Z79.899 - Other fpc (current) drug therapy Category: Medical Plan: Discussed risk of retinopathy associated with hydroxychloroquine. Patient understands. He has an appointment evidence technician in August Plan I spent 22 minutes reviewing patient's chart, evaluating patient, counseling patient and documenting in the chart Medications: New hydroxychloroquine 200 mg PO BID 180 tabs 0RF Coding Level of Care Code Est Pt Level 4 (50183) Diagnoses Rheumatoid factor positive R76.8 Long-term use of hydroxychloroquine Z79.899
[2024-05-06 12:43] VITALS: BP 115/62; PULSE 69; O2SAT 95; BMI 28.4
== END 2024-05-06 13:02 | disposition home or self-care (01) ==
LOC: HO.RHE 12:32
PROVIDERS: PCP Registered Nurse; Visit Provider Student in an Organized Health Care Education/Training Program
DX: R76.8 Other specified abnormal immunological findings in serum (principal); Z79.899 Other long term (current) drug therapy
CPT/HCPCS: 99214

== ENCOUNTER → 2024-05-06 12:32 | Outpatient (BNVA) | payer MEDICAID, SELFPAY | PROVIDERS: PCP Registered Nurse; Visit Provider Student in an Organized Health Care Education/Training Program | DX: R76.8 Other specified abnormal immunological findings in serum (principal); M25.561 Pain in right knee; Z79.899 Other long term (current) drug therapy | CPT/HCPCS: 99212 ==

== ENCOUNTER 2024-07-09 14:44 | Outpatient (AMB) | payer MEDICAID, SELFPAY ==
[2024-07-09 14:46] VITALS: BP 119/76; PULSE 70; BMI 29.2
--- NOTE | 2024-07-09 14:46 | MHC.OFFVIS ---
Vital Signs 07/09/24 14:46 Height 5 ft 8 in Weight 192 lb 3.889 oz BMI 29.2 BP 119/76 Blood Pressure Location Lt brachial Position Sitting Pulse 70 Intake Visit Reasons: follow up gerd R/S from 05/21/24 Intake Note: Nishant presents in follow up of GERD. CC: Patient reports having intestines pain and diarrhea sometimes for a few days that began after eating whole wheat bread with eggs. Billet Header Required: Yes Billet Header Language: Manager Technical Services Name: Smith Jaramillo585 Accompanied by: Self / Same As Patient Allergies acetaminophen [From TYLENOL PM] Allergy (Intermediate, Verified 07/09/24 14:58) ANXIETY celecoxib [From CELEBREX] Allergy (Intermediate, Verified 07/09/24 14:58) MALAISE diphenhydramine [From TYLENOL PM] Allergy (Intermediate, Verified 07/09/24 14:58) ANXIETY metoprolol [METOPROLOL] Allergy (Intermediate, Verified 07/09/24 14:58) RASH HPI HPI follow up gerd R/S from 05/21/24: Details: Assessment & Plan (1) Irritable bowel syndrome with diarrhea: Code(s): K58.0 - Irritable bowel syndrome with diarrhea Category: Medical (2) GERD (gastroesophageal reflux disease): Comment: He appears was resolved with restoring bowel motility Code(s): K21.9 - Gastro-esophageal reflux disease without esophagitis Category: Medical Plan Irish #[place], Live He says that that he has been having pain all over his body, and he had an elevated RF and will be seeing rheumatology. He frequently has pain in the top and bottom of the right food, in the ribs adn chest and elbows/shoulders. He is still finding the bentyl helpful for his cramping/IBS ROV 6 mos. Medications: Refilled dicyclomine 20 mg PO TID 90 tabs 6RF for abdominal pain K58.0 - Irritable bowel syndrome with diarrhea TODAY'S VISIT Irish #[id number] Smith Apparently, he saw rheumatology and was put on hydroxychloroquine and doxypin, he is generally doing well, but he had an episode a few days ago of pain in the abd after eating something different from his usual diet and this has caused diarrhea after he will have pain. The abd pain has resolved but the diarrhea continues. This could be a s/e of the hydroxychloroquine as this IS a common s/e of this, but we will treat for now with imodium and watch and wait to see if this resolved w/o any other interventions. He DOES have solid BM's at times, so this may be a resolving food pathogen etc that it is likely too late to do stool testing on. next available. [facility] Medical History Myalgia Pain in joint, multiple sites Rheumatoid factor positive Diabetes mellitus Chronic pain of right groin Hyperlipidemia Hypertension History of left inguinal hernia Surgical History History of right inguinal hernia repair History of esophagogastroduodenoscopy (EGD) Hx of colonoscopy History of nasal surgery History of back surgery Family History Brother Diabetes Mother Cancer Father Heart problem Maternal Grandmother Colon polyps Lupus Maternal Aunt Rheumatoid arthritis Maternal Uncle Rheumatoid arthritis Social History Household Members: Spouse Alcohol intake: current Alcohol intake frequency: holidays/special occasions only Patient Tobacco Use Status: Never used Tobacco Current occupational status: disabled Review of Systems Const Denies fatigue, Denies fever(s), Denies night sweats, Denies poor appetite and Denies weight loss Eyes Details: glasses Reports requires corrective lenses ENT Reports Normal hearing present, Denies dental pain, Denies dysphagia, Denies hearing loss, Denies mouth pain, Denies odynophagia, Denies throat swelling, Denies tongue swelling and Reports other (Dentition adequate) Card Reports no additional complaints Resp Reports no additional complaints GI Details: Reports abdominal pain, Denies melena, Denies bloating, Denies hematochezia, Denies constipation, Reports GI cramping, Denies dysphagia, Denies excessive flatus, Denies early satiety, Reports heartburn, Reports diarrhea, Denies nausea, Denies odynophagia, Denies vomiting and Denies hematemesis Skin/Breast Denies pruritus, Denies lesions, Denies rash and Denies jaundice Neuro Reports Normal hearing present and Denies Abnormal speech present Endo Denies fatigue Aller/Immun Denies throat swelling and Denies tongue swelling Physical Exam Vital Signs: Last Vital Signs Pulse 70 07/09/24 14:46 BP 119/76 07/09/24 14:46 BMI result Body Mass Index 29.2 Const General: cooperative, no acute distress, well developed and well groomed Nutritional Appearance: well nourished and obese Orientation/consciousness: oriented to person, oriented to place and oriented to time Limitations: language barrier HEENT Head: Yes normocephalic and Yes atraumatic Eyes General: appearance normal, both eyes and all related structures Pupils: Equal, round and reactive pupils present Neck Neck: Yes normal visual inspection and Yes no lymphadenopathy Thyroid: Thyroid normal Resp Effort & Inspection: normal respiratory effort and able to speak in complete sentences Auscultation: clear to auscultation bilaterally Cardio Rate: regular rate Rhythm: regular rhythm Heart sounds: Normal, physiologic split S2 sound present Peripheral pulses: radial pulses present and posterior tibial pulses present GI Inspection: No distended, No Abdominal panniculus present and Yes obesity Palpation (GI): Soft to palpation, nontender, no guarding, not rigid and No hepatosplenomegaly present Percussion: Yes normal to percussion Auscultation: normal bowel sounds Rectal Exam - Male: Yes deferred Skin General skin exam: no rashes or lesions noted, turgor normal, skin not dry, no jaundice, No spider nevi and no striae Rashes: no rashes Nails: normal Neuro General: oriented to person, oriented to place and oriented to time Cranial nerves: Yes Equal, round and reactive pupils present and Yes Normal hearing present Speech: No Abnormal speech present Extrem General: Yes normal to inspection, No clubbing, No cyanosis and No edema Psych Appearance: grossly normal and well kempt Mental Status: mental status grossly normal Speech and movement: Normal speech and movement present Affect: normal affect Attitude: cooperative Thought process: Normal thought process present and not confabulating Thought content: Normal thought content present Insight: Limited insight present (Psych) Judgement: Limited judgement present (Psych) Assessment & Plan Assessment & Plan (1) Irritable bowel syndrome with diarrhea: Code(s): K58.0 - Irritable bowel syndrome with diarrhea Category: Medical (2) GERD (gastroesophageal reflux disease): Comment: He appears was resolved with restoring bowel motility Code(s): K21.9 - Gastro-esophageal reflux disease without esophagitis Category: Medical Plan Irish #[id number] Smith Apparently, he saw rheumatology and was put on hydroxychloroquine and doxypin, he is generally doing well, but he had an episode a few days ago of pain in the abd after eating something different from his usual diet and this has caused diarrhea after he will have pain. The abd pain has resolved but the diarrhea continues. He continues on his dicyclomine but apparently this is insufficient to control the diarrhea This could be a s/e of the hydroxychloroquine as this IS a common s/e of this, but we will treat for now with imodium and watch and wait to see if this resolved w/o any other interventions. He DOES have solid BM's at times, so this may be a resolving food pathogen etc that it is likely too late to do stool testing on. next available. Medications: New loperamide (Imodium A-D) 2 mg PO QID PRN 90 caps 1RF loose stool Refilled dicyclomine 20 mg PO TID 90 tabs 6RF for abdominal pain K58.0 - Irritable bowel syndrome with diarrhea Coding Level of Care Code Est Pt Level 3 (12604) Diagnoses Irritable bowel syndrome with diarrhea K58.0 GERD (gastroesophageal reflux disease) K21.9
== END 2024-07-09 18:41 ==
PROVIDERS: PCP Registered Nurse; Visit Provider Nurse Practitioner
DX: K58.0 Irritable bowel syndrome with diarrhea (principal); K21.9 Gastro-esophageal reflux disease without esophagitis
CPT/HCPCS: 99213

== ENCOUNTER → 2024-07-09 14:44 | Outpatient (BNVA) | payer MEDICAID, SELFPAY | PROVIDERS: PCP Registered Nurse; Visit Provider Nurse Practitioner | DX: K58.0 Irritable bowel syndrome with diarrhea (principal); K21.9 Gastro-esophageal reflux disease without esophagitis | CPT/HCPCS: 99212 ==

== ENCOUNTER 2024-08-06 12:42 | Outpatient (REF) | payer MEDICAID, SELFPAY ==
--- OUTSIDE RECORDS SUMMARY | 2024-08-06 13:41 | XMS_ITS | Encounter Summary ---
Author Organization [employer] Address [address] [place] [address] 7 [place] [address] Care Team Providers Care Block Inspector Name Role Phone AlexisMartinezconchita COFFMAN Primary Care Provider [phone] Sandra Enriquez MD Unavailable Dariusz Lewis MD Unavailable [phone] Jens Rosa MD Unavailable [phone] Encounter Details Date Type Department Care Team (Latest Contact Info) Description 05/19/[address] [facility] CONVERSIONS Dental, Provider, DDS Social History Tobacco [...] Description 08/20/2024 10:30 AM EST Office Visit [facility] OPTOMETRY [address] [place], [place] [phone] Kasia Venegas, OD [address] [place], [place] [phone] 12/02/2024 11:00 AM EDT Office Visit [facility] [address] [place] [address] Marcela Sandy [address] [place], [place] [phone] documented as of this encounter Visit Diagnoses Not on filedocumented in this encounter Care Teams Block Inspector Relationship Specialty Start Date End Date Lanette Espinoza FNP [address] [place] [address] PCP - General Family Medicine 02/28/22 Sandra Enriquez MD [address] [place] [address] Rheumatology 06/11/24 Dariusz Lewis MD [address] [place] [address] Cardiology 06/11/24 Jens Rosa MD [address] [place] [address] Urology 06/11/24 documented as of this encounter
--- OUTSIDE RECORDS SUMMARY | 2024-08-06 13:41 | XMS_ITS | Encounter Summary ---
Author Organization [employer] Address [address] [place] [address] [facility] [place] [address] Care Team Providers Care Chain Maker Name Role Phone AlexisMartinezconchita COFFMAN Primary Care Provider [phone] Sandra Enriquez MD Unavailable Dariusz Lewis MD Unavailable [phone] Jens Rosa MD Unavailable [phone] Encounter Details Date Type Department Care Team (Latest Contact Info) Description 04/26/2021 Abstract [facility] CONVERSIONS Dental, Provider, DDS Social [...] Description 08/20/2024 10:30 AM EST Office Visit [facility] OPTOMETRY [address] [place], [place] [phone] Kasia Venegas, OD [address] [place], [place] [phone] 12/02/2024 11:00 AM EDT Office Visit [facility] [address] [place] [address] Marcela Sandy [address] [place], [place] [phone] documented as of this encounter Visit Diagnoses Not on filedocumented in this encounter Care Teams Chain Maker Relationship Specialty Start Date End Date Lanette Espinoza FNP [address] [place] [address] PCP - General Family Medicine 02/28/22 Sandra Enriquez MD [address] [place] [address] Rheumatology 06/11/24 Dariusz Lewis MD [address] [place] [address] Cardiology 06/11/24 Jens Rosa MD [address] [place] [address] Urology 06/11/24 documented as of this encounter
--- OUTSIDE RECORDS SUMMARY | 2024-08-06 13:41 | XMS_ITS | Encounter Summary ---
Author Organization [employer] Address [address] 7[address] [place] [address] Care Team Providers Care Call Or Contact Centre Team Leader Name Role Phone Lanette Espinoza Primary Care Provider [phone] Sandra Enriquez MD Unavailable Dariusz Lewis MD Unavailable [phone] Jens Rosa MD Unavailable [phone] Encounter Details Date Type Department Care Team (Late st Contact Info) Description 05/16/2023 Abstract [facility] MEDICINE [address] [place] [address] Leonor Ignacio Social History Tobacco Use Types [...] Description 08/20/2024 10:30 AM EST Office Visit [facility] OPTOMETRY [address] [place] [address] Theo, Kasia, OD [address] [place] [address] 12/02/2024 11:00 AM EDT Office Visit [facility] [address] [place] [address] Marcela Sandy [address] [place] [address] documented as of this encounter Procedures Procedure [...] documented as of this encounter Care Teams Call Or Contact Centre Team Leader Relationship Specialty Start Date End Date Lanette Espinoza FNP [address] [place] [address] PCP - General Family Medicine 02/28/22 Sandra Enriquez MD [address] [place] [address] Rheumatology 06/11/24 Dariusz Lewis MD [address] [place] [address] Cardiology 06/11/24 Jens Rosa MD [address] [place] [address] Urology 06/11/24 documented as of this encounter
--- OUTSIDE RECORDS SUMMARY | 2024-08-06 13:41 | XMS_ITS | Clinical Summary ---
Author Organization [employer] Address [address] [place] [address] 7t [place] [address] Care Team Providers Care X Ray Service Engineer Name Role Phone Lanette Espinoza Primary Care Provider [phone] Sandra Enriquez MD Unavailable Dariusz Lewis MD Unavailable Jens Rosa MD Unavailable [phone] Allergies Active Allergy Reactions Criticality Noted Date [...] by mouth at bed time. 1 Active Rbnrli-KS-Gxlmdte n-Petrolatum (Preparation H) 1-0.25-14.4-15 % cream Apply [...] factor positive 06/11/2024 Overview (06/11/2024): Following with [facility] Rheum - Dr. Enriquez Mar 2024: Prednisone trial that provided approx 50% relief Continues hydroxychloroquine 200mg BID through Rheum (initiated May 2024) Assessment & Plan (06/11/2024 4:20 PM EST): - Reports improvement in joint pains and fatigue since initiation of hydroxychloroquine Other irritable bowel syndrome 01/08/2024 Overview (01/08/2024): Following with [facility] GI - Wil NUMERICAL CONTROL PROGRAMMER Continues dicyclomine 20mg TID Generalized pain 01/08/2024 Overview (01/08/2024): Labs September 2023 revealed positive RF (56.4 I U /mL), ANTHONY, CRP and sed rate WNL Eval through [facility] Rheum initiated November 2023 Hepatic steatosis 02/17/2023 [...] -Lifestyle interventions encouraged. Recommended reviewing information from [place] [employer] website. -Microalbumin: normal September 2023 [...] 2022 C-scope: Mar 2022, repeat 5 years ([facility] GI) Eye Exam: Followed by eye care at [facility] Skin check: last September [address] [facility] Derm team Basal cell carcinoma of face 04/27/2020 Overview (01/08/2024): S/p MOHS 2020 Followed once yearly by [facility] Derm (last appt September 2023) Left ventricular [...] EST Office Visit [facility] DENTAL [address] [place] [phone] Jesu Carl BDS 06/22/[address] [facility] MEDICINE [address] [place], [place] [phone] Lanette Espinoza FNP Essential hypertension 06/10/2024 11:30 AM EST Office Visit [facility] MEDICINE [address] [place] [address] Lanette Espinoza FNP Type 2 diabetes mellitus without complication, without long-term current use of insulin ([facility]) (Primary Dx); Encounter for immunization; Rheumatoid factor positive; Essential hypertension 06/10/2024 Travel 06/02/2024 10:00 AM EST Office Visit [facility] DENTAL [address] [place] [address] Marcela Sandy 06/01/[address] [facility] MEDICINE [address] [place] [address] Lanette Espinoza FNP Essential hypertension from Last [...] Description 08/20/2024 10:30 AM EST Office Visit [facility] OPTOMETRY [address] [place] [address] Theo, Kasia, OD [address] [place] [address] 12/02/2024 11:00 AM EDT Office Visit [facility] DENT[facility] [address] [place], [place] [phone] Marcela Sandy [address] [place], [place] [phone] Health Maintenance Due Date Last Done Comments [...] complication, without long-term current use of insulin ([facility]) POCT GLUCOSE Routine 06/10/2024 12:16 PM EST Type 2 diabetes mellitus without complication, without long-term current use of insulin ([facility]) PROPHYLAXIS - ADULT Routine 06/02/2024 1 [...] 06/10/2024 12:1 7 PM EST Lanette Phalen FRAME ALIGNER POINT OF CARE TEST ENTER/EDIT ORDERABLES Final Result * POCT Glucose (06/10/2024 12:16 PM EST) Glucose Blood, POC 195 60 - 200 mg/dL QC Media Lot # [id number] Lot# Expiration Date Blood Capillary blood specimen / Unknown 06/10/2024 12:16 PM EST Lanette Phalen FRAME ALIGNER POINT OF CARE TEST ENTER/EDIT ORDERABLES Final Result * Hepatitis Panel, General (03/31/2024 4:20 PM EDT) Hepatitis A IgM Nonreactive Nonreactive [facility] Comment:IgM antibodies to MARISCAL V not detected; does not exclude earlyacute or recovered HAV infection. ~Hepatitis B Surface Antibody NONREACTIVE Nonreactive [facility] Comment:Nonreactive: < 8.00 mIU/mL Hepatitis B Core Antibody Nonreactive Nonreactive [facility] Hepatitis C Antibody Nonreactive Nonreactive [facility] Comment:Antibodies to HCV no t detected; does not exclude early acuteHCV infection. Hepatitis B Surface Ag Negative Negative [facility] 03/31/2024 4:20 PM EDT 03/31/2024 4:20 PM EDT Generic External Data Provider LAB BLOOD ORDERAB LES Final Result [facility] [address] [place] [phone] * Protein Creatinine Ratio, Urine (03/31/2024 12:00 AM EDT) Creatinine, Urine 189.26 mg/dL [facility] Protein, Total, Random Urine 9 <12 mg/dL [facility] Protein/Creati nine Ratio, Ur 0.05 <0.2 [facility] Comment:The spot urine prote in:creatinine ratio may increase to 0.3during normal . 03/31/2024 03/31/2024 us Generic External Data Provider LAB URINE ORDERAB LES Final Result [facility] [address] [place] [phone] * Lipid Panel, Standard (10/07/2023 8:33 AM EDT) Triglycerides 125 <150 mg/dL [facility] Comment:Desirable Triglyceri de: less than 150 mg/dLBorderline High Triglyceride 150-199 mg/dLHigh Triglyceride: 200-499 mg/dLVery High Triglyceride: greater than or equal to 5OO mg/dL Cholesterol 142 <200 mg/dL [facility] Comment:Desirable Cholestero l: less than 200 mg/dLBorderline High Cholesterol: 200-239 mg/dLHigh Cholesterol: greater than 239 mg/dL LDL Cholesterol Calculated 75 <100 mg/dL [facility] Comment:Desirable LDL: less than 100 mg/dLNear Optimal/Above Optimal LDL: 110- 129 mg/dLBorderline High LDL: 130-159 mg/dLHigh LDL: 160-189 mg/dLVery High LDL: greater than or equal to 190 mg/dL HDL Cholesterol 42 >40 mg/dL [facility] Comment:Desirable HDL: great er than 40 mg/dL Note: This HDL assay may give artificially low results in patients with liver disease. Blood Venous blood specimen / Unknown 10/07/2023 8:33 AM EDT 10/07/2023 11:44 AM EDT us Lanette Espinoza FRAME ALIGNER LAB BLOOD ORDERABLES Final Res ult [facility] [address] [place] [address] [phone] * Hm Colonoscopy (03/20/2022) Colonoscopy Normal Normal Narrative Leonor Ignacio - 03/20/2022 Recommended 5 year follow up Historical Provider MD HEALTH MAINTENANCE Final Result from Last 3 Months or Most Recently Relevant to Health Maintenance Insurance [facility] C3 DENTAL-[facility] MEDICAID STAND ADULT Care Teams X Ray Service Engineer Relationship Specialty Start Date End Date Lanette Espinoza FNP [address] [place] [address] PCP - General Family Medicine 02/28/22 Sandra Enriquez MD [address] [place] [address] Rheumatology 06/11/24 Dariusz Lewis MD [address] [place] [address] Cardiology 06/11/24 Jens Rosa MD [address] [place] [address] Urology 06/11/24
--- OUTSIDE RECORDS SUMMARY | 2024-08-06 13:41 | XMS_ITS | Encounter Summary ---
Author Organization [employer] Address [address] [facility] 7t [place] [address] Care Team Providers Care Loss Control Manager Name Role Phone Lanette Espinoza Primary Care Provider [phone] Sandra Enriquez MD Unavailable Dariusz Lewis MD Unavailable [phone] Jens Rosa MD Unavailable [phone] Reason for Visit * Reason Comments Med Refill Encounter Details Date Type Department Care Team (Late st Contact Info) Description 10/12/2023 Refill [facility] MEDICINE [address] [place], [place] [phone] Chiara Mota MD [address] [place], [place] [phone] Essential hypertension Social History Tobacco Use Types [...] Description 08/20/2024 10:30 AM EST Office Visit [facility] OPTOMETRY [address] [place] [address] Theo, Kasia, OD [address] [place] [address] 12/02/2024 11:00 AM EDT Office Visit [facility] [address] [place] [address] Vika Marcela 91 [place] [address] documented as of this encounter Visit Diagnoses Diagnosis Essential hypertension Unspecified essential hypertension documented in this encounter Additional Health Concerns Assessment Noted Time PHQ-9 Depression Total Score: 0 10/23/19 23 11:15 AM EDT documented as of this encounter Care Teams Loss Control Manager Relationship Specialty Start Date End Date Lanette Espinoza FNP [address] [place] [address] PCP - General Family Medicine 02/28/22 Sandra Enriquez MD [address] [place] [phone] Rheumatology 06/11/24 Dariusz Lewis MD [address] [place] [address] Cardiology 06/11/24 Jens Rosa MD [address] [place] [address] [address] [place] [address] Urology 06/11/24 documented as of this encounter
[2024-08-06 13:52] LABS: MANUAL DIFF FLAG NO
[2024-08-06 14:12] LABS: Basophils Absolute Auto 0.1 X10*3/uL (0.0-0.2); Basophils Percent Auto 0.6 % (0-2); Eosinophils Absolute Auto 0.2 X10*3/uL (0.0-0.4); Eosinophils Percent Auto 2.9 % (0-4); Hemoglobin 14.9 g/dl (14.0-18.0); Imm Gran Abs Auto 0.02 X10*3/uL (0.00-0.03); Imm Gran Pct Auto 0.2 % (0.0-0.4); Lymphocytes Absolute Auto 2.5 X10*3/uL (1.2-4.9); Lymphocytes Percent Auto 30.7 % (20-40); Mean Corpuscular HGB Conc 34.7 g/dl (31.0-36.0); Mean Corpuscular Hemoglobin 28.2 pg (27.0-33.0); Mean Corpuscular Volume 81.3 fL (80.0-98.0); Mean Platelet Volume 11.8 fL (9.4-12.4); Monocytes Absolute Auto 0.6 X10*3/uL (0.1-1.2); Monocytes Percent Auto 7.1 % (2-11); Neutrophils Absolute Auto 4.8 x10*3/uL (2.0-8.3); Neutrophils Percent Auto 58.5 % (45-73); Platelet Count 197 X10*3/uL (160-400); Red Blood Count 5.29 X10*6/uL (4.60-5.80); Red Cell Distribution Width 12.7 % (11.0-16.0); White Blood Count 8.2 X10*3/uL (4.8-10.8)
[2024-08-06 14:38] LABS: Alanine Aminotransferase 36 U/L (0-40); Albumin Level 4.4 g/dL (3.5-5.0); Alkaline Phosphatase 61 U/L (39-117); Anion Gap 11 (12-20); Aspartate Amino Transferase 27 U/L (5-37); Bilirubin Total 0.4 mg/dL (0.0-1.0); Blood Urea Nitrogen 12 mg/dL (9-16); C Reactive Protein 0.11 mg/dL (< or = 0.50); Calcium 8.6 mg/dL (8.4-10.2); Carbon Dioxide 27 mmol/L (22-29); Chloride 96 mmol/L (96-108); Estimated Glomerular Filt Rate > 60; Glucose Random 135 mg/dL (60-115); Potassium 3.7 mmol/L (3.3-5.1); Sodium 130 mmol/L (135-145); Total Protein 7.5 g/dL (6.5-8.0)
[2024-08-06 14:53] LABS: Erythrocyte Sedimentation Rate 1 MM/HR (0-15)
== END 2024-08-06 12:43 | disposition home or self-care (01) ==
LOC: HO.LAB 12:42
PROVIDERS: PCP Registered Nurse; Visit Provider Student in an Organized Health Care Education/Training Program
DX: M05.9 Rheumatoid arthritis with rheumatoid factor, unspecified (principal); M25.50 Pain in unspecified joint; M79.10 Myalgia, unspecified site; Z79.899 Other long term (current) drug therapy
CPT/HCPCS: 36415; 80053; 85025; 85652; 86140; 99212

== ENCOUNTER → 2024-08-06 12:42 | Outpatient (AMB) | payer MEDICAID, SELFPAY ==
--- OUTSIDE RECORDS SUMMARY | 2024-08-06 12:44 | XMS_ITS | Encounter Summary ---
Author Organization [employer] Address [address] [facility] [address] [place] [address] Care Team Providers Care Fireworks Assembly Supervisor Name Role Phone Lanette Espinoza Primary Care Provider [phone] Sandra Enriquez MD Unavailable Dariusz Lewis MD Unavailable [phone] Jens Rosa MD Unavailable [phone] Encounter Details Date Type Department Care Team (Late st Contact Info) Description 05/16/[address] [facility] [address] [place] [address] Leonor Ignacio Social History Tobacco Use Types Packs/Day Years Used Date Smoking Tobacco: Never Passive Smoke Exposure: Never Smokeless Tobacco: Never Alcohol Use Standard Drinks/Week Comments Yes 0 (1 standard drink = 0.6 oz pur e alcohol) Very Rarely Depression Answer Date Recorded Patient Health Questionnaire-9 Score 0 10/22/2022 Housing Stability Answer Date Recorded What is your housing situation today? I have bolivar gallardo 04/17/[address] you li ve. Do you have problems with any of the following? None of the above 04/17/2023 Food Insecurity Answer Date Recorded Within the past 12 months, y ou worried that your food would run out before you got money to buy more: Never True 04/17/2023 Within the past 12 months,th e food you bought just didn't last and you didn't have enough money to get more: Never True Transportation Answer Date Recorded In the past 12 months, has l ack of transportation kept you from medical appts, meetings, work or from getting things needed for daily living? No 04/17/2023 Utilities Answer Date Recorded In the past 12 months, has t he electric, gas, oil or water company threatened to shut off services in your home? No 04/17/2023 Depression Answer Date Recorded Patient Health Questionnaire-2 Score 0 10/22/2022 Sex and Gender Information Value Date Recorded Sex Assigned at Male 04/30/2022 10:32 AM EDT Legal Sex Male 10:32 AM EDT Gender Identity Male 02/17/2023 6:22 PM EDT Sexual Orientation Choose not to disclose 2021 10:32 AM EDT documented as of this encounter Plan of Treatment Upcoming Encounters Date Type Department Care Team (Late st Contact Info) Description 08/20/2024 10:30 AM EST Office Visit [facility] [address] [place] [address] Theo, Kasia, OD [address] [place] [address] 12/02/2024 11:00 AM EDT Office Visit [facility] [address] [place] [address] Marcela Sandy [address] [place] [address] documented as of this encounter Procedures Procedure Name Priority Date/Time Associated Diagnosis Comments COLONOSCOPY Routine 03/20/2022 documented in this encounter Results * Colonoscopy (03/20/2022) Colonoscopy Normal Normal Narrative Leonor Ignacio - 03/20/2022 Recommended 5 year follow up us Historical Provider HEALTH MAINTENANCE Final Result documented in this encounter Visit Diagnoses Not on filedocumented in this encounter Additional Health Concerns Assessment Noted Time PHQ-9 Depression Total Score: 0 10/23/19 23 11:15 AM EDT documented as of this encounter Care Teams Fireworks Assembly Supervisor Relationship Specialty Start Date End Date Lanette Espinoza FNP [address] [place] [address] PCP - General Family Medicine 02/28/22 Sandra Enriquez MD [address] [place] [address] Rheumatology 06/11/24 Dariusz Lewis MD [address] [place] [address] Cardiology 06/11/24 Jens Rosa MD [address] [place] [address] Urology 06/11/24 documented as of this encounter
--- OUTSIDE RECORDS SUMMARY | 2024-08-06 12:44 | XMS_ITS | Clinical Summary ---
Author Organization [id number] Address [address] [place] [address] [address] [place] [address] Care Team Providers Care Automotive Engineering Technician Name Role Phone Lanette Espinoza Primary Care Provider [phone] Sandra Enriquez MD Unavailable Dariusz Lewis MD Unavailable [phone] Jens Rosa MD Unavailable [phone] Allergies Active Allergy Reactions Criticality Noted Date Comments Celecoxib 08/26/2023 Metoprolol Rash Low 05/07/2017 Medications atenolol (Tenormin) 25 MG tablet Take 1 tablet by mouth at bed time. 1 Active fluticasone (Flonase Allergy Relief) 50 MCG/ACT nasal spray Administer 2 sprays into affected nostril(s) at bed time. 1 Active hydrOXYzine HCl (Atarax) 50 MG tablet Take 1 tablet by mouth in the morning and 1 tablet in the evening. Active ibuprofen 800 MG tablet Take 1 tablet by mouth every 8 (eight) hours. 2 Active loratadine (Claritin) 10 MG tablet Take 1 tablet by mouth at bed time. 1 Active melatonin 3 MG tablet take 1 tablet by oral route at bedtime Active Multiple Vitamin (Multi-Vitamin) tablet take 1 tablet by oral route every day with food Active risperiDONE (RisperDAL) 0.5 MG tablet Take 0.5 mg by mouth 2 times daily. 3 Active sertraline (Zoloft) 100 MG tablet Take 200 mg by mouth in the morning. 3 Active sildenafil (Viagra) 50 MG tablet Take 1 tablet by mouth at bed time. 1 Active Arfqvy-ND-Gkbpiyt n-Petrolatum (Preparation H) 1-0.25-14.4-15 % cream Apply after each bowel movement with blood. 8 Active acetaminophen (Tylenol) 500 MG tablet take 1 tablet (500MG) by oral route every 6 hours as needed 2 Active ascorbic acid (Vitamin C) 1000 MG tablet take 2 tablets by oral route daily Active lidocaine (Lidoderm) 5 % patchIndications: Lumbar spondylosis Apply 1 patch topically in the morning. Remove & discard patch within 12 hours or as directed by . 30 patch 2 3 Active Blood Glucose Monitoring Suppl (FreeStyle Lite) w/Device kitIndications:Ty pe 2 diabetes mellitus without complication, without long-term current use of insulin (CMS/HCC) 1 each Once daily. Use to check blood glucose once daily (when symptomatic) 1 kit 3 Active Alcohol Swabs padsIndications:T ype 2 diabetes mellitus without complication, without long-term current use of insulin (CMS/HCC) Use to clean skin prior to checking blood sugar daily 100 each 11 3 Active famotidine (Pepcid) 40 MG tablet Take 40 mg by mouth at bedtime. 2 Active dicyclomine (Bentyl) 20 MG tablet Take 20 mg by mouth 3 times daily. (Abdominal Pain) 4 Active tiZANidine (Zanaflex) 2 MG tabletIndications :Muscle spasm Take 1 tablet (2 mg) by mouth every 8 (eight) hours if needed for muscle spasms. 30 tablet 4 Active glucose blood (FREESTYLE LITE) test stripIndications: Type 2 diabetes mellitus without complication, without long-term current use of insulin (CMS/HCC) USE TO CHECK BLOOD SUGAR EVERY DAY 100 strip 11 4 Active FreeStyle lancetsIndication s:Type 2 diabetes mellitus without complication, without long-term current use of insulin (CMS/HCC) USE TO CHECK BLOOD GLUCOSE ONCE EVERY DAY(WHEN SYMPTOMATIC) 100 each 11 4 Active metFORMIN XR (Glucophage-XR) 500 MG 24 hr tablet TAKE 2 TABLETS BY MOUTH DAILY WITH THE EVENING MEAL. DO NOT CRUSH, CHEW, OR SPLIT 180 tablet 3 4 Active rosuvastatin (Crestor) 5 MG tabletIndications :Essential hypertension Take 1 tablet (5 mg) by mouth at bedtime. (For cholesterol) 90 tablet 3 4 Active doxepin (SINEquan) 10 MG capsule Take 10 mg by mouth if needed at bedtime for sleep. 4 Active hydroxychloroquin e (Plaquenil) 200 MG tablet Take 1 tablet by mouth 2 times daily. 4 Active amLODIPine (Norvasc) 10 MG tabletIndications :Essential hypertension TAKE 1 TABLET(10 MG) BY MOUTH IN THE MORNING 90 tablet 3 4 Active Active Problems Problem Noted Date Diagnosed Date Rheumatoid factor positive 06/11/2024 Overview (06/11/2024): Following with [facility] - Dr. Enriquez Mar 2024: Prednisone trial that provided approx 50% relief Continues hydroxychloroquine 200mg BID through Rhe[facility] (initiated May 2024) Assessment & Plan (06/11/2024 4:20 PM EST): - Reports improvement in joint pains and fatigue since initiation of hydroxychloroquine Other irritable bowel syndrome 01/08/2024 Overview (01/08/2024): Following with [facility] - Wil [employer] Continues dicyclomine 20mg TID Generalized pain 01/08/2024 Overview (01/08/2024): Labs September 2023 revealed positive RF (56.4 I U /mL), ANTHONY, CRP and sed rate WNL Eval through [facility] initiated November 2023 Hepatic steatosis 02/17/2023 Assessment & Plan (01/08/2024 4:02 PM EDT): -CT Chest September 2022 w/ Incidental finding of Question or atypical appearance of focal fatty sparing in the left lobe of the liver. Follow-up liver MRI to exclude focal lesion should be considered -MRI May 2023 demonstrated heterogeneous fatty infiltration of the liver -Aug 2022: AST, ALT, and Alk phos WNL Aug 2022 -September 2023: hepatic function panel and liver fibrosis scoring WNL Assessment & Plan (10/03/2023 11:19 AM EDT): -CT Chest September 2022 w/ Incidental finding of Question or atypical appearance of focal fatty sparing in the left lobe of the liver. Follow-up liver MRI to exclude focal lesion should be considered -MRI May 2023 demonstrated heterogeneous fatty infiltration of the liver -AST, ALT, and Alk phos WNL Aug 2022 -Repeat labs with liver fibrosis panel ordered September 2023 Assessment & Plan (06/19/2023 9:33 PM EST): -CT Chest September 2022 w/ Incidental finding of Question or atypical appearance of focal fatty sparing in the left lobe of the liver. Follow-up liver MRI to exclude focal lesion should be considered -MRI May 2023 demonstrated heterogeneous fatty infiltration of the liver -AST, ALT, and Alk phos WNL Aug 2022 Assessment & Plan (02/17/2023 6:28 PM EDT): -CT Chest September 2022 w/ Incidental finding of Question or atypical appearance of focal fatty sparing in the left lobe of the liver. Follow-up liver MRI to exclude focal lesion should be considered -MRI liver w/ and w/o ordered for follow up -AST, ALT, and Alk phos WNL Aug 2022 Type 2 diabetes mellitus wit hout complication, without long-term current use of insulin 09/23/2022 Overview (06/11/2024): Lab Results Component Value Date HGBA1C 7.2 (A) 06/10/2024 HGBA1C 7.0 (A) 01/08/2024 HGBA1C 6.9 (A) 10/02/2023 HGBA1C 8.9 (H) 08/23/2022 -A1c goal </= 7, slightly above goal -Diagnosed August 2022 -Continue with metformin XR 1000mg daily, tolerating well -Lifestyle interventions encouraged. Recommended reviewing information from [place] [employer] website. -Microalbumin: normal September 2023 -Lipids: Lab Results Component Value Date CHOL 142 10/07/2023 TRIG 125 10/07/2023 TRIG 188 (H) 08/23/2022 HDL 42 10/07/2023 LDLCHOLCAL 75 10/07/2023 Assessment & Plan (06/11/2024 4:22 PM EST): - Discussed goal, shared decision making to cont current therapy. Consider increase dose of metformin next appt if still above goal Assessment & Plan (01/08/2024 4:03 PM EDT): Well controlled, cont current regimen Assessment & Plan (10/03/2023 11:17 AM EDT): Well controlled, cont current regimen Assessment & Plan (11/26/2022 9:38 PM EDT): BG monitoring supplies sent to pharmacy Routine health maintenance 08/29/2022 Overview (10/03/2023): STI: Declined Aug 2022 Smoking status: non-smoker Lipids: TC 161, LDL 92, HDL 41, TG 188 Aug 2022 C-scope: Mar 2022, repeat 5 years ([facility]) Eye Exam: Followed by eye care at [facility] Skin check: last September 2022 by [facility] Derm team Basal cell carcinoma of face 04/27/2020 Overview (01/08/2024): S/p MOHS 2020 Followed once yearly by [facility] Derm (last appt September 2023) Left ventricular systolic dysfunction 08/20/2019 Mitral valve regurgitation 08/20/2019 Cervical radiculopathy 05/05/2018 Palpitations 01/27/2018 Overview (10/02/2023): Jul 2023: 48 hour Holter ordered by Dr. Lewis Mixed anxiety and depressive disorder 05/03/2017 Anxiety 04/19/2017 Essential hypertension 04/19/2017 Overview (10/03/2023): BP goal < 130/80 mmHg Continues following with Dr. Joshua Medication regimen: Atenolol 25mg daily Amlodipine 10mg daily Assessment & Plan (06/11/2024 4:26 PM EST): Continues with low salt diet and routine physical activity Average at goal, cont with current regimen Return precautions reviewed Assessment & Plan (10/03/2023 11:16 AM EDT): Continues with low salt diet and routine physical activity Average at goal, cont with current regimen Return precautions reviewed Resolved Problems Problem Noted Date Diagnosed Date Resolved Date Dental caries 01/23/2023 06/19/2023 Encounters Date Type Department Care Team Description 06/25/2024 11:00 AM EST Office Visit [facility] [address] [place] [address] [phone] Jesu Carl BDS 06/22/2024 Refill [facility] [address] [place], [place] [phone] Lanette Espinoza FNP Essential hypertension 06/10/2024 11:30 AM EST Office Visit [facility] [address] [place] [address] Lanette Espinoza FNP Type 2 diabetes mellitus without complication, without long-term current use of insulin ([facility]) (Primary Dx); Encounter for immunization; Rheumatoid factor positive; Essential hypertension 06/10/2024 Travel 06/02/2024 10:00 AM EST Office Visit [facility] [address] [place] [phone] Marcela Sandy 06/01/2024 Refill [facility] [address] [place] [address] Lanette Espinoza FNP Essential hypertension from Last 3 Months Immunizations Name Administration Dates Next Due Hep B, adult 06/10/2024 Influenza injectable quadriv alent IIV4 with preservative 04/06/2019,03/27/2018,06/18/2017 Influenza injectable quadriv alent preservative free 04/29/2023,03/28/2022,2020 Influenza, IIV3, injectable 2021 Influenza, seasonal, injecta ble, preservative free 03/19/2024 Pfizer Covid-19 Vaccine 12+ 03/19/2024, Pfizer Covid-19 Vaccine 12+ Bivalent 04/03/2022 Pneumococcal Conjugate PCV 20 06/19/2023 Tdap 2020 Zoster, Recombinant 05/20/2020,03/18/2020 Social History Tobacco Use Types Packs/Day Years Used Date Smoking Tobacco: Never Passive Smoke Exposure: Never Smokeless Tobacco: Never Tobacco Cessation:Counseling Given: Not Answered Alcohol Use Standard Drinks/Week Comments Yes 0 (1 standard drink = 0.6 oz pur e alcohol) Very Rarely Depression Answer Date Recorded Patient Health Questionnaire-9 Score 1 01/08/2024 Patient Health Questionnaire-9 Score 1 01/08/2024 Last PHQ-9: Questionnaire Data Not on file 0 01/08/2024 Housing Stability Answer Date Recorded What is your housing situation today? I have bolivar gallardo 01/08/[address] you li ve. Do you have problems with any of the following? None of the above 01/08/2024 Food Insecurity Answer Date Recorded Within the past 12 months, y ou worried that your food would run out before you got money to buy more: Never True 01/08/2024 Within the past 12 months,th e food you bought just didn't last and you didn't have enough money to get more: Never True 03/2024 Transportation Answer Date Recorded In the past 12 months, has l ack of transportation kept you from medical appts, meetings, work or from getting things needed for daily living? No 01/08/2024 Utilities Answer Date Recorded In the past 12 months, has t he electric, gas, oil or water company threatened to shut off services in your home? No 01/08/2024 Depression Answer Date Recorded Patient Health Questionnaire-2 Score 1 01/08/2024 Internet Access Answer Date Recorded Internet Access Q1 Yes 03/02/2024 Internet Access Q2 Not on file 03/02/2024 Sex and Gender Information Value Date Recorded Sex Assigned at Male 04/30/2022 10:32 AM EDT Legal Sex Male 10:32 AM EDT Gender Identity Male 02/17/2023 6:22 PM EDT Sexual Orientation Choose not to disclose 2021 10:32 AM EDT Last Filed Vital Signs Vital Sign Reading Time Taken Comments Blood Pressure 129/83 06/10/2024 11:48 AM EST Pulse 70 06/10/2024 11:48 AM EST Temperature 36.2 ??C (97.1 ??F) 06/10/2024 11:[address] Respiratory Rate 22 06/10/2024 11:48 AM EST Oxygen Saturation 98% 06/10/2024 11:48 AM EST Inhaled Oxygen Concentration - - Weight 86.7 kg (191 lb 2 oz) 06/10/2024 11:48 AM EST Height 172.7 cm (5' 8 ) 06/10/2024 11:48 AM EST Body Mass Index 29.06 06/10/2024 11:48 AM EST Plan of Treatment Upcoming Encounters Date Type Department Care Team (Late st Contact Info) Description 08/20/2024 10:30 AM EST Office Visit [facility] [address] [place] [address] Theo, Kasia, OD [address] [place] [address] 12/02/2024 11:00 AM EDT Office Visit [facility] [address] [place], [place] [phone] Marcela Sandy [address] [place], [place] [phone] Health Maintenance Due Date Last Done Comments CT Colonography 1965 FIT DNA/Cologuard 1965 FIT 1965 FOBT 1965 HIV Screening 1965 Sigmoidoscopy 1965 Diabetes: Foot Exam 1975 Alcohol/Substance Use Screening 1977 Hepatitis A Vaccines (1 of 2 - Risk 2-dose series) 1984 Dental X-Ray: Full Mouth 02/12/2021 02/11/2018 Dental Oral Exam 07/27/2023 01/23/2023, , 05/19/2019, Additional history exists Dental X-Ray: Bitewings 03/07/2024 03/06/20 23, 01/23/2023, 07/26/2020, Additional history exists Derm Melanoma Skin Check 04/11/2024 10/11/2023, 09/30 Hepatitis B Vaccines (2 of 3 - 19+ 3-dose series) 07/08/2024 06/10/2024 Eye Exam 08/10/2024 08/10/2022, 08/01, 08/10/2022, Additional history exists Diabetes: Hemoglobin A1C 09/08/2024 024, 01/08/2024, 10/02/2023, Additional history exists Lipid Panel 10/06/2024 10/07/2023, 08/02, 12/23/2020 Dental Prophylaxis 12/02/2024 06/02/2024, 0 08/26/2023, 04/26/2021, Additional history exists Depression Screening 01/07/2025 01/08/2024, 01/08/20 SDOH Screening 01/07/2025 01/08/2024 Diabetes: Urine Protein Screening 03/31/2025 03/31/2024, 10/07/2023 Tobacco Screening 06/25/2025 06/25/2024 Colonoscopy 03/20/2027 03/20/2022 Colorectal Cancer Screening 03/20/2027 DTaP/Tdap/Td Vaccines (2 - Td or Tdap) 2030 2020 RSV Patients and Patients Aged 60 years or older (1 - 1-dose 75+ series) 2040 Zoster Vaccines Completed 05/20/2020, 03/18/2020 Pneumococcal Vaccine: 50+ Years Completed 06/19/2023 Pneumococcal Vaccine: Pediatrics (0 to 5 Years) and At-Risk Patients (6 to 49) Years) Completed 06/19/2023 COVID-19 Vaccine Completed 03/19/2024, , 04/03/2022, Additional history exists Influenza Vaccine Completed 03/19/2024, , 03/28/2022, Additional history exists Hepatitis C Screening Completed 03/31/2024 HIB Vaccines Aged Out No longer eligi ble based on patient's age to complete this topic HPV Vaccines Aged Out No longer eligi ble based on patient's age to complete this topic IPV Vaccines Aged Out No longer eligi ble based on patient's age to complete this topic Meningococcal Vaccine Aged Out No kellee toi eligible based on patient's age to complete this topic RSV under 20 months Aged Out No longe r eligible based on patient's age to complete this topic Rotavirus Vaccines Aged Out No longer eligible based on patient's age to complete this topic Procedures Procedure Name Priority Date/Time Associated Diagnosis Comments LIMITED ORAL EVALUATION - PROBLEM FOCUSED Routine 06/25/2024 11:00 AM EST ADJUNCTIVE GENERAL SERVICES - PROFESSIONAL VISITS - CASE PRESENTATION, SUBSEQUENT TO DETAILED AND EXTENSIVE TREATMENT PLANNING Routine 06/25/2024 11:00 AM EST 30 MO RESTORATIVE - RESIN-BASED COMPOSITE RESTORATIONS - DIRECT - RESIN-BASED COMPOSITE - TWO SURFACES, POSTERIOR Routine 06/25/2024 11:00 AM EST 20 DO RESTORATIVE - RESIN-BASED COMPOSITE RESTORATIONS - DIRECT - RESIN-BASED COMPOSITE - TWO SURFACES, POSTERIOR Routine 06/25/2024 11:00 AM EST POCT GLYCATED HEMOGLOBIN, TOTAL Routine 06/10/2024 12:17 PM EST Type 2 diabetes mellitus without complication, without long-term current use of insulin ([facility]) POCT GLUCOSE Routine 06/10/2024 12:16 PM EST Type 2 diabetes mellitus without complication, without long-term current use of insulin ([facility]) PROPHYLAXIS - ADULT Routine 06/02/2024 1 0:00 AM EST ADJUNCTIVE GENERAL SERVICES - PROFESSIONAL VISITS - CASE PRESENTATION, SUBSEQUENT TO DETAILED AND EXTENSIVE TREATMENT PLANNING Routine 06/02/2024 10:00 AM EST HEPATITIS PANEL, GENERAL Routine 03/31/2024 4:20 PM EDT PROTEIN CREATININE RATIO, URINE Routine 03/31/2024 12:00 AM EDT LIPID PANEL, STANDARD Routine 10/07/2023 8:33 AM EDT Essential hypertension BITEWING - SINGLE RADIOGRAPHIC IMAGE Routine 03/06/2023 2:30 PM EDT PERIODIC ORAL EVALUATION - ESTABLISHED PATIENT Routine 01/23/2023 10:00 AM EDT HM COLONOSCOPY Routine 03/20/2022 DIAGNOSTIC - DIAGNOSTIC IMAGING - INTRAORAL - COMPREHENSIVE SERIES OF RADIOGRAPHIC IMAGES Routine 02/11/2018 12:00 AM EDT from Last 3 Months or Most Recently Relevant to Health Maintenance Results * (ABNORMAL) POCT HGB A1C (06/10/2024 12:17 PM EST) Hemoglobin A1C 7.2(A) 4.0 - 6.0 % Comment:Random QC Media Lot # [id number] Lot# Expiration Date Blood 06/10/2024 12:1 7 PM EST Lanette Phalen [employer] POINT OF CARE TEST ENTER/EDIT ORDERABLES Final Result * POCT Glucose (06/10/2024 12:16 PM EST) Glucose Blood, POC 195 60 - 200 mg/dL QC Media Lot # [id number] Lot# Expiration Date Blood Capillary blood specimen / Unknown 06/10/2024 12:16 PM EST Lanette Phalen [employer] POINT OF CARE TEST ENTER/EDIT ORDERABLES Final Result * Hepatitis Panel, General (03/31/2024 4:20 PM EDT) Hepatitis A IgM Nonreactive Nonreactive [facility] Comment:IgM antibodies to MARISCAL V not detected; does not exclude earlyacute or recovered HAV infection. ~Hepatitis B Surface Antibody NONREACTIVE Nonreactive [facility] Comment:Nonreactive: < 8.00 mIU/mL Hepatitis B Core Antibody Nonreactive Nonreactive [facility] Hepatitis C Antibody Nonreactive Nonreactive [facility] Comment:Antibodies to HCV no t detected; does not exclude early acuteHCV infection. Hepatitis B Surface Ag Negative Negative [facility] 03/31/2024 4:20 PM EDT 03/31/2024 4:20 PM EDT Generic External Data Provider LAB BLOOD ORDERAB LES Final Result [facility] [address] [place] [phone] * Protein Creatinine Ratio, Urine (03/31/2024 12:00 AM EDT) Creatinine, Urine 189.26 mg/dL [facility] Protein, Total, Random Urine 9 <12 mg/dL [facility] Protein/Creati nine Ratio, Ur 0.05 <0.2 [facility] Comment:The spot urine prote in:creatinine ratio may increase to 0.3during normal . 03/31/2024 03/31/2024 us Generic External Data Provider LAB URINE ORDERAB LES Final Result [facility] [address] [place] [phone] * Lipid Panel, Standard (10/07/2023 8:33 AM EDT) Triglycerides 125 <150 mg/dL [facility] Comment:Desirable Triglyceri de: less than 150 mg/dLBorderline High Triglyceride 150-199 mg/dLHigh Triglyceride: 200-499 mg/dLVery High Triglyceride: greater than or equal to 5OO mg/dL Cholesterol 142 <200 mg/dL [facility] Comment:Desirable Cholestero l: less than 200 mg/dLBorderline High Cholesterol: 200-239 mg/dLHigh Cholesterol: greater than 239 mg/dL LDL Cholesterol Calculated 75 <100 mg/dL [facility] Comment:Desirable LDL: less than 100 mg/dLNear Optimal/Above Optimal LDL: 110- 129 mg/dLBorderline High LDL: 130-159 mg/dLHigh LDL: 160-189 mg/dLVery High LDL: greater than or equal to 190 mg/dL HDL Cholesterol 42 >40 mg/dL [facility] Comment:Desirable HDL: great er than 40 mg/dL Note: This HDL assay may give artificially low results in patients with liver disease. Blood Venous blood specimen / Unknown 10/07/2023 8:33 AM EDT 10/07/2023 11:44 AM EDT us Lanette Espinoza [employer] LAB BLOOD ORDERABLES Final Res ult [facility] [address] [place] [phone] * Hm Colonoscopy (03/20/2022) Colonoscopy Normal Normal Narrative Leonor Ignacio - 03/20/2022 Recommended 5 year follow up Historical Provider MD HEALTH MAINTENANCE Final Result from Last 3 Months or Most Recently Relevant to Health Maintenance Insurance [facility] C[facility] MEDICAID STAND ADULT Care Teams Automotive Engineering Technician Relationship Specialty Start Date End Date Lanette Espinoza FNP [address] [place] [address] PCP - General Family Medicine 02/28/22 Sandra Enriquez MD [address] [place] [address] Rheumatology 06/11/24 Dariusz Lewis MD [address] [place] [address] Cardiology 06/11/24 Jens Rosa MD [address] [place] [address] Urology 06/11/24
--- OUTSIDE RECORDS SUMMARY | 2024-08-06 12:44 | XMS_ITS | Encounter Summary ---
Author Organization [employer] Address [address] [place] [address] Care Team Providers Care Back Shoe Worker Name Role Phone Lanette Espinoza Primary Care Provider [phone] Sandra Enriquez MD Unavailable Dariusz Lewis MD Unavailable [phone] Jens Rosa MD Unavailable [phone] Reason for Visit * Reason Comments Med Refill Encounter Details Date Type Department Care Team (Late st Contact Info) Description 10/12/2023 Refill [facility] [address] [place], [place] [phone] Chiara Mota MD [address] [place], [place] [phone] Essential hypertension Social History Tobacco Use Types Packs/Day Years [...] Description 08/20/2024 10:30 AM EST Office Visit [facility] [address] [place] [address] Theo, Kasia, OD [address] [place] [address] 12/02/2024 11:00 AM EDT Office Visit [facility] [address] [place] [address] Vika Marcela [address] [place] [address] documented as of this encounter Visit Diagnoses Diagnosis Essential hypertension Unspecified essential hypertension documented in this encounter Additional Health Concerns Assessment Noted Time PHQ-9 Depression Total Score: 0 10/23/19 23 11:15 AM EDT documented as of this encounter Care Teams Back Shoe Worker Relationship Specialty Start Date End Date Lanette Espinoza FNP [address] [place] [address] PCP - General Family Medicine 02/28/22 Sandra Enriquez MD [address] [place] [phone] Rheumatology 06/11/24 Dariusz Lewis MD [address] [place] [address] Cardiology 06/11/24 Jens Rosa MD [address] [place] [address] Drive [address] [place] [phone] Urology 06/11/24 documented as of this encounter
--- NOTE | 2024-08-06 12:45 | A.OFFVIS_ITS ---
Vital Signs 08/06/24 12:51 Height 5 ft 8 in Weight 188 lb 14.978 oz BMI 28.7 BP 122/80 Blood Pressure Location Rt brachial Position Sitting Pulse 89 Pulse Source Pulse Oximeter Pulse Oximetry (%) 97 Oxygen Delivery Method Room Air Intake Visit Reasons: UCTD Intake Note: Patient presents for UCTD. Team Manager Required: Yes Team Manager Language: Clerical Proofreader Services: Team Manager Present Team Manager Name: Jeri [id number] Information Interpreted: non-clinical & clinical Allergies acetaminophen [From TYLENOL PM] Allergy (Intermediate, Verified 08/06/24 12:51) ANXIETY celecoxib [From CELEBREX] Allergy (Intermediate, Verified 08/06/24 12:51) MALAISE diphenhydramine [From TYLENOL PM] Allergy (Intermediate, Verified 08/06/24 12:51) ANXIETY metoprolol [METOPROLOL] Allergy (Intermediate, Verified 08/06/24 12:51) RASH HPI Comments Details: Patient is a 59-year-old male with hypertension, hyperlipidemia, GERD who presents for follow up of positive rheumatoid factor in the setting of polyarthralgias. Interval History: Patient last seen 05/06/[address] Enriquez. At that time there was some suggestion of an autoimmune inflammatory arthritis and was started on a trial of Plaquenil. Today, Since then has been doing much better on the plaquenil Rheumatologic History: Initial history: This is a 59-year-old male who presents for evaluation of a positive rheumatoid factor in the setting of polyarthralgias. He states that last November he woke up 1 day with right knee pain and swelling, the swelling self- resolved next day. He had similar pain and swelling of his right knee in 2020. It self-resolved. He states however that he has different pains in different joints such as his wrists, other knee, ankles. He wakes up with fatigue that can last anywhere from half an hour or until the evening. 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 He states that he was vaccinated for hepatitis. Current Rheumatology Medication(s): Plaquenil 400mg daily [facility] Medical History Myalgia Pain in joint, multiple sites Rheumatoid factor positive Diabetes mellitus Chronic pain of right groin Hyperlipidemia Hypertension History of left inguinal hernia Surgical History History of right inguinal hernia repair History of esophagogastroduodenoscopy (EGD) Hx of colonoscopy History of nasal surgery History of back surgery Family History Brother Diabetes Mother Cancer Father Heart problem Maternal Grandmother Colon polyps Lupus Maternal Aunt Rheumatoid arthritis Maternal Uncle Rheumatoid arthritis Social History Household Members: Spouse Alcohol intake: current Alcohol intake frequency: holidays/special occasions only Patient Tobacco Use Status: Never used Tobacco Current occupational status: disabled Review of Systems Const Details: Review of Systems Constitutional: Denies fever, chills, weight loss ENT: Denies vision changes, eye pain or eye redness, dental caries, dry mouth GI: Denies nausea, vomiting, diarrhea, abdominal pain, change in BM Pulm: Denies SOB, AGUILAR, hemoptysis, wheezing Cards: Denies chest pain, palpitations Skin: Denies Raynaud's, rash, nail changes, photosensitivity, IT CORPORATE RECRUITER: Denies headaches, weakness, paresthesias, recurrent falls MSK: as per HPI All other systems reviewed and are unremarkable except noted above Physical Exam Vital Signs: Last Vital Signs Pulse 89 08/06/24 12:51 BP 122/80 08/06/24 12:51 Pulse Ox 97 08/06/24 12:51 Oxygen Delivery Method Room Air 08/06/24 12:51 BMI result Body Mass Index 28.7 Vital signs reviewed Physical Examination CONSTITUITIONAL Patient alert and cooperative. Well appearing and in no apparent painful distress HEENT Conjunctiva and sclera clear. ?Pupils equal round and reactive to light. ?No lymphadenopathy. ? CHEST/RESPIRATORY SYSTEM Normal respiratory effort and able to speak in complete sentences. ?Clear to auscultation bilaterally. ?No crackles, rales, rhonchi, wheezes heard. CARDIAC SYSTEM Regular rate and rhythm. ?S1 and S2 heard no murmurs. ?Radial pulses intact bilaterally MSK Hands: ?Good consumer credit counselor strength bilaterally. No deformities noted. ?No synovitis noted to the MCPs, PIPs or DIPs. ?No tenderness to palpation of these joints. Wrists: ?Full range of motion at the wrists without pain. ?No tenderness to palpation or synovitis noted to the wrists. Elbows: Full range of motion without pain. No tenderness, weakness, swelling, increased warmth or erythema. Shoulders: Full range of motion without pain. No tenderness, weakness, swelling, increased warmth or erythema. Hips: Full range of motion without pain. Hip bursa: No tenderness to palpation Knees: ?Full range of motion. ?No tenderness, swelling, increased warmth or erythema.?No effusion or crepitations Ankles: Full range of motion. ?No tenderness, swelling, increased warmth or erythema.? Feet: ?Negative squeeze test. ?No tenderness to palpation or swelling of the MTPs. Tender points:?No tenderness to palpation of the bilateral trapezius, supraspinatus, greater trochanters, anterior costochondral junctions, bilateral gluteal areas, bilateral suboccipital muscle insertions SKIN Skin intact without rashes. Results Reviewed Results Reviewed: Laboratory Tests 03/31/24 16:20 WBC 7.0 RBC 4.91 Hgb 13.9 L Hct 41.3 L Plt Count 185 ESR 3 Sodium 138 Potassium 3.8 Chloride 102 Carbon Dioxide 28 BUN 15 Creatinine 0.88 Uric Acid 5.3 AST 16 ALT 23 Alkaline Phosphatase 70 C-Reactive Protein 0.22 Assessment & Plan Assessment & Plan (1) Seropositive rheumatoid arthritis: Comment: +RF -CCP Plaquenil 03/2024 Code(s): M05.9 - Rheumatoid arthritis with rheumatoid factor, unspecified Category: Medical Plan: #Seropositive RA Patient is a 59-year-old male with hypertension who presents for follow up of polyarthralgias in the setting of a positive rheumatoid factor. In the past he had had did not have any response to prednisolone but has had good response to Plaquenil. Given his positive RF, strong family history is likely that he has either early rheumatoid arthritis or potentially palindromic rheumatoid arthritis way I think he is doing much better on the Plaquenil and we will continue this. Discussed with patient that we may need to add medications in the future Plan - Follow up HCQ 200mg bid - Labs today: CBC, CMP, ESR, CRP - RTC 4 months - Labs prior to visit: CBC, CMP, ESR, CRP (2) Long-term use of hydroxychloroquine: Code(s): Z79.899 - Other laborer marine terminal (current) drug therapy Category: Medical Plan: #Long-term Use of Hydroxychloroquine Discussed with patient the risks and benefits of hydroxychloroquine in managing the rheumatic condition Benefits include: - Reduced pain, reduce mortality, maintenance of remission and reduction of flares Risks include: - GI upset, skin hyperpigmentation, retinal toxicity (especially after more than 5 years of use), myopathy Advised yearly ophthalmology visits Plan I spent 20 minutes reviewing the record and labs, taking a history, examining the patient, discussing the treatment plan and documenting in the medical record Orders: Orders C Reactive Protein Today M05.9 - Rheumatoid arthritis with rheumatoid factor, unspecified, Z79.899 - Other half-way (current) drug therapy Complete Blood Count Auto Diff Today M05.9 - Rheumatoid arthritis with rheumatoid factor, unspecified, Z79.899 - Other half-way (current) drug therapy Comprehensive Met. Panel Today M05.9 - Rheumatoid arthritis with rheumatoid factor, unspecified, Z79.899 - Other half-way (current) drug therapy Erythrocyte Sedimentation Rate Today M05.9 - Rheumatoid arthritis with rheumatoid factor, unspecified, Z79.899 - Other half-way (current) drug therapy Coding Level of Care Code Est Pt Level 3 (74298) Complex EM visit Add On G2211 Diagnoses Seropositive rheumatoid arthritis M05.9 Long-term use of hydroxychloroquine Z79.899
--- OUTSIDE RECORDS SUMMARY | 2024-08-06 12:45 | XMS_ITS | Encounter Summary ---
Author Organization [email or web address] Address [address] [place] [address] 7 [place] [address] Care Team Providers Care Computer Aided Design Operator Name Role Phone AlexisMartinezconchita COFFMAN Primary Care Provider [phone] Sandra Enriquez MD Unavailable Dariusz Lewis MD Unavailable [phone] Jens Rosa MD Unavailable [phone] Encounter Details Date Type Department Care Team (Latest Contact Info) Description 05/19/2019 Abstract [facility] CONVERSIONS Dental, Provider, DDS Social History Tobacco Use Types Packs/Day Years Used Date Smoking Tobacco: Never Assessed Sex and Gender Information Value Date Recorded [...] Description 08/20/2024 10:30 AM EST Office Visit [facility] OPTOMETRY [address] [place], [place] [phone] Kasia Venegas, OD [address] [place], [place] [phone] 12/02/2024 11:00 AM EDT Office Visit [facility] [address] [place] [address] Marcela Sandy [address] [place], [place] [phone] documented as of this encounter Visit Diagnoses Not on filedocumented in this encounter Care Teams Computer Aided Design Operator Relationship Specialty Start Date End Date Lanette Espinoza FNP [address] [place] [address] PCP - General Family Medicine 02/28/22 Sandra Enriquez MD [address] [place] [address] Rheumatology 06/11/24 Dariusz Lewis MD [address] [place] [address] Cardiology 06/11/24 Jens Rosa MD [address] [place] [address] Urology 06/11/24 documented as of this encounter
--- OUTSIDE RECORDS SUMMARY | 2024-08-06 12:45 | XMS_ITS | Encounter Summary ---
Author Organization [employer] Address [address] [place] [address] [facility] [place] [address] Care Team Providers Care Telegrapher Agent Name Role Phone AlexisMartinezconchita COFFMAN Primary Care Provider [phone] Sandra Enriquez MD Unavailable Dariusz Lewis MD Unavailable [phone] Jens Rosa MD Unavailable [phone] Encounter Details Date Type Department Care Team (Latest Contact Info) Description 04/26/2021 Abstract [facility] CONVERSIONS Dental, Provider, DDS Social History Tobacco [...] Description 08/20/2024 10:30 AM EST Office Visit [facility] OPTOMETRY [address] [place], [place] [phone] Kasia Venegas, OD [address] [place], [place] [phone] 12/02/2024 11:00 AM EDT Office Visit [facility] [address] [place] [address] Marcela Sandy [address] [place], [place] [phone] documented as of this encounter Visit Diagnoses Not on filedocumented in this encounter Care Teams Telegrapher Agent Relationship Specialty Start Date End Date Lanette Espinoza FNP [address] [place] [address] PCP - General Family Medicine 02/28/22 Sandra Enriquez MD [address] [place] [address] Rheumatology 06/11/24 Dariusz Lewis MD [address] [place] [address] Cardiology 06/11/24 Jens Rosa MD [address] [place] [address] Urology 06/11/24 documented as of this encounter
== END | disposition home or self-care (01) ==
PROVIDERS: PCP Registered Nurse; Visit Provider Student in an Organized Health Care Education/Training Program
CPT/HCPCS: 99213

== ENCOUNTER 2024-08-12 11:52 | Outpatient (REF) | payer MEDICAID, SELFPAY ==
--- OUTSIDE RECORDS SUMMARY | 2024-08-12 13:42 | XMS_ITS | Encounter Summary ---
Author Organization [employer] Address [address] [facility] 7t [place] [address] Care Team Providers Care Top Ironer Name Role Phone Lanette Espinoza Primary Care Provider [phone] Sandra Enriquez MD Unavailable Dariusz Lewis MD Unavailable [phone] Jens Rosa MD Unavailable [phone] Reason for Visit * Reason Onset Date Comments Results 08/10/2024 Encounter Details Date Type Department Care Team (Late st Contact Info) Description 08/10/2024 Telephone [facility] MEDICINE [address] [place], [place] [phone] Nathalia Waddell, CINDI Results Social History Tobacco Use Types Packs/Day Years [...] AM EDT documented as of this encounter Miscellaneous Notes * Telephone Encounter - Nathalia Waddell RN - 08/10/2024 12:03 PM EST Telephone call returned to patient in regards to below message. Patient verbalized understanding and denied having any further questions or concerns at this time. Patient to follow up as needed. * Telephone Encounter - Nathalia Waddell RN - 08/10/2024 12:02 PM EST ----- Message from Lanette Espinoza sent at 08/09/2024 12:24 PM EST ----- Please call to let him know of low sodium level seen on lab from outside specialist. Please assess for any symptoms of hyponatremia. I have sent repeat BMP for him to complete. Thank you! documented in this encounter Plan of Treatment Upcoming Encounters Date Type Department Care Team (Late st Contact Info) Description 08/20/2024 10:30 AM EST Office Visit [facility] OPTOMETRY [address] [place] [address] Kasia Venegas, OD 230 [place] [address] 12/02/2024 11:00 AM EDT Office Visit [facility] [address] [place], [place] [phone] VikaMarcela 91 [place], [place] [phone] documented as of this encounter Visit Diagnoses Not on filedocumented in this encounter Additional Health Concerns Assessment Noted Time PHQ-9 Depression Total Score: 1 01/08/20 24 11:23 AM EDT documented as of this encounter Care Teams Top Ironer Relationship Specialty Start Date End Date Lanette Espinoza FNP [address] [place] [address] PCP - General Family Medicine 02/28/22 Sandra Enriquez MD [address] [place] [address] Rheumatology 06/11/24 Dariusz Lewis MD [address] [place] [address] Cardiology 06/11/24 Jens Rosa MD [address] [place] [address] Urology 06/11/24 documented as of this encounter
--- OUTSIDE RECORDS SUMMARY | 2024-08-12 13:42 | XMS_ITS | Encounter Summary ---
Author Organization [employer] Address [address] [facility] 7t [place] [address] Care Team Providers Care Tool Grinding Machine Operator Name Role Phone Lanette Espinoza Primary Care Provider [phone] Sandra Enriquez MD Unavailable Dariusz Lewis MD Unavailable [phone] Jens Rosa MD Unavailable [phone] Encounter Details Date Type Department Care Team (Late st Contact Info) Description 08/09/2024 Orders Only [facility] MED & PEDS [address] [place], [place] [phone] Lanette Espinoza FNP [address] [place], [place] [phone] Hyponatremia (Primary Dx) Social History Tobacco Use Types Packs/Day Years [...] Description 08/20/2024 10:30 AM EST Office Visit [facility] OPTOMETRY [address] [place] [address] Theo, Kasia, OD [address] [place] [address] 12/02/2024 11:00 AM EDT Office Visit [facility] [address] [place] [address] Marcela Sandy [address] [place] [address] Scheduled Orders Name Type Priority Associated Diagnoses Orde r Schedule Basic Metabolic Panel Lab Routine Hyponatremia Expected: 08/09/2024 (Approximate), Expires: 08/09/2025 documented as of this encounter Visit Diagnoses Diagnosis Hyponatremia- Primary Hyposmolality and/or hyponatremia documented in this encounter Additional Health Concerns Assessment Noted Time PHQ-9 Depression Total Score: 1 01/08/20 24 11:23 AM EDT documented as of this encounter Care Teams Tool Grinding Machine Operator Relationship Specialty Start Date End Date Lanette Espinoza FNP [address] [place] [address] PCP - General Family Medicine 02/28/22 Sandra Enriquez MD [address] [place] [address] Rheumatology 06/11/24 Dariusz Lewis MD [address] [place] [address] Cardiology 06/11/24 Jens Rosa MD [address] [place] [address] Urology 06/11/24 documented as of this encounter
--- OUTSIDE RECORDS SUMMARY | 2024-08-12 13:42 | XMS_ITS | Encounter Summary ---
Author Organization [employer] Address [address] [place] [address] 7 [place] [address] Care Team Providers Care Charter Boat Operator Name Role Phone AlexisMartinezconchita COFFMAN Primary Care Provider [phone] Sandra Enriquez MD Unavailable Dariusz Lewis MD Unavailable [phone] Jens Rosa MD Unavailable [phone] Encounter Details Date Type Department Care Team (Latest Contact Info) Description 04/26/[address] [facility]VERSION[facility] Dental, Provider, DDS Social History [...] 08/20/2024 10:30 AM EST Office Visit [facility] OPTOMETRY [address] [place], [place] [phone] Kasia Venegas, OD [address] [place], [place] [phone] 12/02/2024 11:00 AM EDT Office Visit [facility] [address] [place] [address] Marcela Sandy [address] [place], [place] [phone] documented as of this encounter Visit Diagnoses Not on filedocumented in this encounter Care Teams Charter Boat Operator Relationship Specialty Start Date End Date Lanette Espinoza FNP [address] [place] [address] PCP - General Family Medicine 02/28/22 Sandra Enriquez MD [address] [place] [address] Rheumatology 06/11/24 Dariusz Lewis MD [address] [place] [address] Cardiology 06/11/24 Jens Rosa MD [address] [place] [address] Urology 06/11/24 documented as of this encounter
--- OUTSIDE RECORDS SUMMARY | 2024-08-12 13:42 | XMS_ITS | Clinical Summary ---
Author Organization [employer] Address [address] [place] [address] 7t [place] [address] Care Team Providers Care Cigarette Filter Inspector Name Role Phone Lanette Espinoza Primary Care Provider [phone] Sandra Enriquez MD Unavailable Dariusz Lewis MD Unavailable Jens Rosa MD Unavailable [phone] Allergies Active Allergy Reactions Criticality Noted Date [...] by mouth at bed time. 1 Active Utenjy-EP-Omsjiwr n-Petrolatum (Preparation H) 1-0.25-14.4-15 % cream Apply [...] factor positive 06/11/2024 Overview (06/11/2024): Following with [facility] Rheum - Dr. Enriquez Mar 2024: Prednisone trial that provided approx 50% relief Continues hydroxychloroquine 200mg BID through Rheum (initiated May 2024) Assessment & Plan (06/11/2024 4:20 PM EST): - Reports improvement in joint pains and fatigue since initiation of hydroxychloroquine Other irritable bowel syndrome 01/08/2024 Overview (01/08/2024): Following with [facility] GI - Wil QUALITY ASSURANCE NURSE Continues dicyclomine 20mg TID Generalized pain 01/08/2024 Overview (01/08/2024): Labs September 2023 revealed positive RF (56.4 I U /mL), ANTHONY, CRP and sed rate WNL Eval through [facility] Rheum initiated November 2023 Hepatic steatosis 02/17/2023 [...] -Lifestyle interventions encouraged. Recommended reviewing information from [place] [employer] website. -Microalbumin: normal September 2023 [...] 2022 C-scope: Mar 2022, repeat 5 years ([facility] GI) Eye Exam: Followed by eye care at [facility] Skin check: last September 2022 by [facility] Derm team Basal cell carcinoma of face 04/27/2020 Overview (01/08/2024): S/p MOHS 2020 Followed once yearly by [facility] Derm (last appt September 2023) Left [...] Encounters Date Type Department Care Team Description 08/10/2024 Telephone [facility] MEDICINE [address] [place], [place] [phone] Nathalia Waddell RN Results 08/09/2024 Orders Only [facility] MED & PEDS [address] [place], [place] [phone] Lanette Espinoza FNP Hyponatremia (Primary Dx) 08/06/2024 Orders Only GENERIC EXTERNAL DATA DEPARTMENT Provider, Generic External Data 06/25/2024 11:00 AM EST Office Visit [facility] DENTAL [address] [place] [address] [phone] Jesu Carl BDS 06/22/2024 Refill [facility] MEDICINE [address] [place], [place] [phone] Lanette Espinoza FNP Essential hypertension 06/10/2024 11:30 AM EST Office Visit [facility] MEDICINE [address] [place], [place] [phone] Lanette Espinoza FNP Type 2 diabetes mellitus without complication, without long-term current use of insulin ([facility]) (Primary Dx); Encounter for immunization; Rheumatoid factor positive; Essential hypertension 06/10/2024 Travel 06/02/2024 10:00 AM EST Office Visit [facility] DENTAL [address] [place] [phone] Marcela Sandy 06/01/2024 Refill [facility] MEDICINE [address] [place], [place] [phone] Lanette Espinoza FNP Essential hypertension from Last [...] Description 08/20/2024 10:30 AM EST Office Visit [facility] OPTOMETRY [address] [place] [address] Theo, Kasia, OD [address] [place] [address] 12/02/2024 11:00 AM EDT Office Visit [facility] [address] [place] [address] Xiang Sandyine [address] [place] [address] Health Maintenance Due Date Last Done Comments [...] history exists Depression Screening 01/07/2025 01/08/2024, 01/08/20 24 SDOH Screening 01/07/2025 01/08/2024 Diabetes: Urine Protein Screening 03/31/2025 03/31/2024, 10/07/2023 Tobacco Screening 06/25/2025 06/25/2024 Colonoscopy 03/20/2027 03/20/2022 Colorectal Cancer Screening 03/20/2027 DTaP/Tdap/Td Vaccines (2 - Td or Tdap) 2030 2020 RSV Patients and Patients Aged 60 years or older (1 - 1-dose 75+ series) 2040 Zoster Vaccines Completed 05/20/2020, 03/18/2020 Pneumococcal Vaccine: 50+ Years Completed 06/19/2023 COVID-19 Vaccine Completed 03/19/2024, , [...] Procedure Name Priority Date/Time Associated Diagnosis Comments SED RATE BY MODIFIED WESTERGREN Routine 08/06/2024 1:51 PM EST C-REACTIVE PROTEIN Routine 08/06/2024 1: 51 PM EST COMPREHENSIVE METABOLIC PANEL Routine 08/06/2024 1:51 PM EST CBC WITH AUTO DIFFERENTIAL Routine 08/06/2024 1:51 PM EST LIMITED ORAL EVALUATION - PROBLEM FOCUSED Routine [...] without long-term current use of insulin (CMS/HCC) POCT GLUCOSE Routine 06/10/2024 12:16 PM EST Type 2 diabetes mellitus without complication, without long-term current use of insulin (CMS/HCC) PROPHYLAXIS - ADULT Routine 06/02/2024 1 0:00 [...] Recently Relevant to Health Maintenance Results * CBC auto differential (08/06/2024 1:51 PM EST) White Blood Count 8.2 4.8 - 10.8 X10*3/uL [facility] Red Blood Count 5.29 4.60 - 5.80 X10*6/uL [facility] Hemoglobin 14.9 14.0 - 18.0 g/dl [facility] Hematocrit 43.0 42.0 - 52.0 % [facility] Mean Corpuscular Volume 81.3 80.0 - 98.0 fL [facility] Mean Corpuscular Hemoglobin 28.2 27.0 - 33.0 pg [facility] Mean Corpuscular HGB Conc 34.7 31.0 - 36.0 g/dl [facility] Red Cell Distribution Width 12.7 11.0 - 16.0 % [facility] Platelet Count 197 160 - 400 X10*3/uL [facility] Mean Platelet Volume 11.8 9.4 - 12.4 fL [facility] Neutrophils Percent Auto 58.5 45 - 73 % [facility] Imm Gran Pct Auto 0.2 0.0 - 0.4 % [facility] Lymphocytes Percent Auto 30.7 20 - 40 % [facility] Monocytes Percent Auto 7.1 2 - 11 % [facility] Eosinophils Percent Auto 2.9 0 - 4 % [facility] Basophils Percent Auto 0.6 0 - 2 % [facility] NRBC Pct Auto 0.0 0.0 - 0.2 /100WBC [facility] Neutrophils Absolute Auto 4.8 2.0 - 8.3 x10*3/uL [facility] Imm Gran Abs Auto 0.02 0.00 - 0.03 X10*3/uL [facility] Lymphocytes Absolute Auto 2.5 1.2 - 4.9 X10*3/uL [facility] Monocytes Absolute Auto 0.6 0.1 - 1.2 X10*3/uL [facility] Eosinophils Absolute Auto 0.2 0.0 - 0.4 X10*3/uL [facility] Basophils Absolute Auto 0.1 0.0 - 0.2 X10*3/uL [facility] NRBC Abs Auto 0.000 0.0 - 0.012 X10*3/uL [facility] 08/06/2024 1:51 PM EST 08/06/2024 1:51 PM EST us Generic External Data Provider LAB BLOOD ORDERAB LES Final Result Performing Organization Address [facility]/ZIP Co de Phone Number [facility] [address] [place] [phone] * Sed Rate by Modified [place] (08/06/2024 1:51 PM EST) Erythrocyte Sedimentation Rate 1 0 - 15 MM/HR [facility] Comment:Patients with polycy themia and many hemoglobin abnormalitiesmay have depressed sed rates whereas patients with anemiamay have elevated sed rates. 08/06/2024 1:51 PM EST 08/06/2024 1:51 PM EST us Generic External Data Provider LAB BLOOD ORDERAB LES Final Result Performing Organization Address [facility]/ZIP Co de Phone Number [facility] [address] [place] [phone] * C-reactive Protein (08/06/2024 1:51 PM EST) C Reactive Protein 0.11 < or = 0.50 mg/dL [facility] 08/06/2024 1:51 PM EST 08/06/2024 1:51 PM EST us Generic External Data Provider LAB BLOOD ORDERAB LES Final Result [facility] [address] [place] [address] [phone] * (ABNORMAL) Comprehensive Metabolic Panel (08/06/2024 1:51 PM EST) Pathologist [facility] Sodium 130(L) 135 - 145 mmol/L [facility] Potassium 3.7 3.3 - 5.1 mmol/L [facility] Chloride 96 96 - 108 mmol/L [facility] Carbon Dioxide 27 22 - 29 mmol/L [facility] Anion Gap 11(L) 12 - 20 [facility] Urea Nitrogen (BUN) 12 9 - 16 mg/dL [facility] Creatinine, Serum 0.89 0.5 - 1.4 mg/dL [facility] Estimated Glomerular Filt Rate >60 [facility] Comment:Chronic Kidney Disea se: Estimated GFR < 60 mL/min/1.72x8Hpmmur Kidney Disease: Estimated GFR < 15 mL/min/1.73m2 Glucose 135(H) 60 - 115 mg/dL [facility] Calcium 8.6 8.4 - 10.2 mg/dL [facility] Bilirubin, Total 0.4 0.0 - 1.0 mg/dL [facility] Aspartate Amino Transferase 27 5 - 37 U/L [facility] Alanine Aminotransferase 36 0 - 40 U/L [facility] Total Protein 7.5 6.5 - 8.0 g/dL [facility] Albumin Level 4.4 3.5 - 5.0 g/dL [facility] Alkaline Phosphatase 61 39 - 117 U/L [facility] 08/06/2024 1:51 PM EST 08/06/2024 1:51 PM EST us Generic External Data Provider LAB BLOOD ORDERAB LES Final Result [facility] [address] [place] [address] [phone] * (ABNORMAL) POCT HGB A1C (06/10/2024 12:17 PM EST) Hemoglobin A1C 7.2(A) 4.0 - 6.0 % Comment:Random QC Media Lot # [id number] Lot# Expiration Date Blood 06/10/2024 12:1 7 PM EST Lanette Phalen WINDCHILL ADMINISTRATOR POINT OF CARE TEST ENTER/EDIT ORDERABLES Final Result * POCT Glucose (06/10/2024 12:16 PM EST) Pathologist [facility] Glucose Blood, POC 195 60 - 200 mg/dL QC Media Lot # [id number] Lot# Expiration Date ,545,727 Blood Capillary blood specimen / Unknown 06/10/2024 12:16 PM EST Lanette Phalen WINDCHILL ADMINISTRATOR POINT OF CARE TEST ENTER/EDIT ORDERABLES Final Result * Hepatitis Panel, General (03/31/2024 4:20 PM EDT) Pathologist [facility] Hepatitis A IgM Nonreactive Nonreactive [facility] Comment:IgM antibodies to MARISCAL V not detected; does not exclude earlyacute or recovered HAV infection. ~Hepatitis B Surface Antibody NONREACTIVE Nonreactive [facility] Comment:Nonreactive: < 8.00 mIU/mL Hepatitis B Core Antibody Nonreactive Nonreactive [facility] Hepatitis C Antibody Nonreactive Nonreactive [facility] Comment:Antibodies to HCV no t detected; does not exclude early acuteHCV infection. Hepatitis B Surface Ag Negative Negative [facility] 03/31/2024 4:20 PM EDT 03/31/2024 4:20 PM EDT Generic External Data Provider LAB BLOOD ORDERAB LES Final Result Performing Organization Address [facility] de Phone Number [facility] [address] [place] [phone] * Protein Creatinine Ratio, Urine (03/31/2024 12:00 AM EDT) Creatinine, Urine 189.26 mg/dL [facility] Protein, Total, Random Urine 9 <12 mg/dL [facility] Protein/Creati nine Ratio, Ur 0.05 <0.2 [facility] Comment:The spot urine prote in:creatinine ratio may increase to 0.3during normal . 03/31/2024 03/31/2024 Generic External Data Provider LAB URINE ORDERAB LES Final Result Performing Organization Address [facility] Phone Number [facility] [address] [place] [phone] * Lipid Panel, Standard (10/07/2023 8:33 AM EDT) Triglycerides 125 <150 mg/dL [facility] Comment:Desirable Triglyceri de: less than 150 mg/dLBorderline High Triglyceride 150-199 mg/dLHigh Triglyceride: 200-499 mg/dLVery High Triglyceride: greater than or equal to 5OO mg/dL Cholesterol 142 <200 mg/dL [facility] Comment:Desirable Cholestero l: less than 200 mg/dLBorderline High Cholesterol: 200-239 mg/dLHigh Cholesterol: greater than 239 mg/dL LDL Cholesterol Calculated 75 <100 mg/dL [facility] Comment:Desirable LDL: less than 100 mg/dLNear Optimal/Above Optimal LDL: 110- 129 mg/dLBorderline High LDL: 130-159 mg/dLHigh LDL: 160-189 mg/dLVery High LDL: greater than or equal to 190 mg/dL HDL Cholesterol 42 >40 mg/dL [facility] Comment:Desirable HDL: great er than 40 mg/dL Note: This HDL assay may give artificially low results in patients with liver disease. Blood Venous blood specimen / Unknown 10/07/2023 8:33 AM EDT 10/07/2023 11:44 AM EDT us Lanette Espinoza WINDCHILL ADMINISTRATOR LAB BLOOD ORDERABLES Final Res ult [facility] [address] [place] [address] [phone] * Hm Colonoscopy (03/20/2022) Colonoscopy Normal Normal Narrative Leonor Ignacio - 03/20/2022 Recommended 5 year follow up Historical Provider MD HEALTH MAINTENANCE Final Result from Last 3 Months or Most Recently Relevant to Health Maintenance Insurance [facility] C3 DENTAL-[facility] MEDICAID STAND ADULT Care Teams Cigarette Filter Inspector Relationship Specialty Start Date End Date Lanette Espinoza FNP [address] [place] [address] PCP - General Family Medicine 02/28/22 Sandra Enriquez MD [address] [place] [address] Rheumatology 06/11/24 Dariusz Lewis MD [address] [place] [address] Cardiology 06/11/24 Jens Rosa MD [address] [place] [address] Urology 06/11/24
--- OUTSIDE RECORDS SUMMARY | 2024-08-12 13:42 | XMS_ITS | Encounter Summary ---
Author Organization [employer] Address [address] [facility] 7t [place] [address] Care Team Providers Care Civil Process Server Name Role Phone Lanette Espinoza Primary Care Provider [phone] Sandra Enriquez MD Unavailable Dariusz Lewis MD Unavailable [phone] Jens Rosa MD Unavailable [phone] Reason for Visit * Reason Comments Med Refill Encounter Details Date Type Department Care Team (Late st Contact Info) Description 10/12/2023 Refill [facility] MEDICINE [address] [place], [place] [phone] Chiara Mota MD [address] [place], [place] [phone] Essential hypertension Social History Tobacco Use Types [...] Description 08/20/2024 10:30 AM EST Office Visit [facility] OPTOMETRY [address] [place] [address] Theo, Kasia, OD [address] [place] [address] 12/02/2024 11:00 AM EDT Office Visit [facility] [address] [place] [address] Vika Marcela [address] [place] [address] documented as of this encounter Visit Diagnoses Diagnosis Essential hypertension Unspecified essential hypertension documented in this encounter Additional Health Concerns Assessment Noted Time PHQ-9 Depression Total Score: 0 10/23/19 23 11:15 AM EDT documented as of this encounter Care Teams Civil Process Server Relationship Specialty Start Date End Date Lanette Espinoza FNP [address] [place] [address] PCP - General Family Medicine 02/28/22 Sandra Enriquez MD [address] [place] [address] Rheumatology 06/11/24 Dariusz Lewis MD [address] [place] [address] Cardiology 06/11/24 Jens Rosa MD [address] [place] [address] [address] [place] [address] Urology 06/11/24 documented as of this encounter
--- OUTSIDE RECORDS SUMMARY | 2024-08-12 13:42 | XMS_ITS | Encounter Summary ---
Author Organization [employer] Address [address] [place] [address] 7t [place] [address] Care Team Providers Care Drill Operator Name Role Phone AlexisMartinezconchita COFFMAN Primary Care Provider [phone] Sandra Enriquez MD Unavailable Dariusz Lewis MD Unavailable [phone] Jens Rosa MD Unavailable [phone] Encounter Details Date Type Department Care Team (Latest Contact Info) Description 05/19/2019 Abstract [facility] CONVERSIONS Dental, Provider, DDS Social [...] 10:30 AM EST Office Visit [facility] OPTOMETRY [address] [place], [place] [phone] Kasia Venegas, OD [address] [place], [place] [phone] 12/02/2024 11:00 AM EDT Office Visit [facility] [address] [place] [address] Marcela Sandy [address] [place], [place] [phone] documented as of this encounter Visit Diagnoses Not on filedocumented in this encounter Care Teams Drill Operator Relationship Specialty Start Date End Date Lanette Espinoza FNP [address] [place] [address] PCP - General Family Medicine 02/28/22 Sandra Enriquez MD [address] [place] [address] Rheumatology 06/11/24 Dariusz Lewis MD [address] [place] [address] Cardiology 06/11/24 Jens Rosa MD [address] [place] [address] Urology 06/11/24 documented as of this encounter
--- OUTSIDE RECORDS SUMMARY | 2024-08-12 13:42 | XMS_ITS | Encounter Summary ---
Author Organization [employer] Address [address] 7t [place] [address] Care Team Providers Care Set Up Technician Name Role Phone Lanette Espinoza Primary Care Provider [phone] Sandra Enriquez MD Unavailable Dariusz Lewis MD Unavailable [phone] Jens Rosa MD Unavailable [phone] Encounter Details Date Type Department Care Team (Late st Contact Info) Description 05/16/[address] [facility] MEDICINE [address] [place] [address] Leonor Ignacio Social History Tobacco Use Types [...] 08/20/2024 10:30 AM EST Office Visit [facility] OPTOMETRY [address] [place] [address] Theo, Kasia, OD [address] [place] [address] 12/02/2024 11:00 AM EDT Office Visit [facility] [address] [place] [address] Marcela Sandy [address] [place] [address] documented as of this encounter Procedures Procedure [...] documented as of this encounter Care Teams Set Up Technician Relationship Specialty Start Date End Date Lanette Espinoza FNP [address] [place] [address] PCP - General Family Medicine 02/28/22 Sandra Enriquez MD [address] [place] [address] Rheumatology 06/11/24 Dariusz Lewis MD [address] [place] [address] Cardiology 06/11/24 Jens Rosa MD [address] [place] [address] Urology 06/11/24 documented as of this encounter
--- OUTSIDE RECORDS SUMMARY | 2024-08-12 13:42 | XMS_ITS | Encounter Summary ---
Author Organization [employer] Address [address] 7[address] [place] [address] Care Team Providers Care Manager Payment Name Role Phone Alexis Lanette COFFMAN Primary Care Provider [phone] Sandra Enriquez MD Unavailable Dariusz Lewis MD Unavailable [phone] Jens Rosa MD Unavailable [phone] Encounter Details Date Type Department Care Team (Late st Contact Info) Description 08/06/2024 Orders Only GENERIC EXTERNAL DATA DEPARTMENT Provider, Generic External Data Social History Tobacco Use Types Packs/Day Years [...] Description 08/20/2024 10:30 AM EST Office Visit [facility] OPTOMETRY [address] [place] [address] Theo, Kasia, OD [address] [place] [address] 12/02/2024 11:00 AM EDT Office Visit [facility] [address] [place], [place] [phone] Vika Marcela [address] [place], [place] [phone] documented as of this encounter Procedures Procedure Name Priority Date/Time Associated Diagnosis Comments CBC WITH AUTO DIFFERENTIAL Routine 08/06/2024 1:51 PM EST SED RATE BY MODIFIED WESTERGREN Routine 08/06/2024 1:51 PM EST C-REACTIVE PROTEIN Routine 08/06/2024 1: 51 PM EST COMPREHENSIVE METABOLIC PANEL Routine 08/06/2024 1:51 PM EST documented in this encounter Results * Sed Rate by Modified Westergren (08/06/2024 1:51 PM EST) Erythrocyte Sedimentation Rate 1 0 - 15 MM/HR [facility] Comment:Patients with polycy themia and many hemoglobin abnormalitiesmay have depressed sed rates whereas patients with anemiamay have elevated sed rates. 08/06/2024 1:51 PM EST 08/06/2024 1:51 PM EST Generic External Data Provider LAB BLOOD ORDERAB LES Final Result Performing Organization Address [facility] de Phone Number [facility] [address] [place] [phone] * C-reactive Protein (08/06/2024 1:51 PM EST) [facility] C Reactive Protein 0.11 < or = 0.50 mg/dL [facility] 08/06/2024 1:51 PM EST 08/06/2024 1:51 PM EST Generic External Data Provider LAB BLOOD ORDERAB LES Final Result Performing Organization Address [facility] Phone Number [facility] [address] [place] [phone] * (ABNORMAL) Comprehensive Metabolic Panel (08/06/2024 1:51 PM EST) [facility] Sodium 130(L) 135 - 145 mmol/L [facility] Potassium 3.7 3.3 - 5.1 mmol/L [facility] Chloride 96 96 - 108 mmol/L [facility] Carbon Dioxide 27 22 - 29 mmol/L [facility] Anion Gap 11(L) 12 - 20 [facility] Urea Nitrogen (BUN) 12 9 - 16 mg/dL [facility] Creatinine, Serum 0.89 0.5 - 1.4 mg/dL [facility] Estimated Glomerular Filt Rate >60 [facility] Comment:Chronic Kidney Disea se: Estimated GFR < 60 mL/min/1.90h8Mibhxw Kidney Disease: Estimated GFR < 15 mL/min/1.73m2 Glucose 135(H) 60 - 115 mg/dL [facility] Calcium 8.6 8.4 - 10.2 mg/dL [facility] Bilirubin, Total 0.4 0.0 - 1.0 mg/dL [facility] Aspartate Amino Transferase 27 5 - 37 U/L [facility] Alanine Aminotransferase 36 0 - 40 U/L [facility] Total Protein 7.5 6.5 - 8.0 g/dL [facility] Albumin Level 4.4 3.5 - 5.0 g/dL [facility] Alkaline Phosphatase 61 39 - 117 U/L [facility] 08/06/2024 1:51 PM EST 08/06/2024 1:51 PM EST us Generic External Data Provider LAB BLOOD ORDERAB LES Final Result [facility] [address] [place] [phone] * CBC auto differential (08/06/2024 1:51 PM EST) White Blood Count 8.2 4.8 - 10.8 X10*3/uL [facility] Red Blood Count 5.29 4.60 - 5.80 X10*6/uL [facility] Hemoglobin 14.9 14.0 - 18.0 g/dl [facility] Hematocrit 43.0 42.0 - 52.0 % [facility] Mean Corpuscular Volume 81.3 80.0 - 98.0 fL [facility] Mean Corpuscular Hemoglobin 28.2 27.0 - 33.0 pg [facility] Mean Corpuscular HGB Conc 34.7 31.0 - 36.0 g/dl [facility] Red Cell Distribution Width 12.7 11.0 - 16.0 % [facility] Platelet Count 197 160 - 400 X10*3/uL [facility] Mean Platelet Volume 11.8 9.4 - 12.4 fL [facility] Neutrophils Percent Auto 58.5 45 - 73 % [facility] Imm Gran Pct Auto 0.2 0.0 - 0.4 % [facility] Lymphocytes Percent Auto 30.7 20 - 40 % [facility] Monocytes Percent Auto 7.1 2 - 11 % [facility] Eosinophils Percent Auto 2.9 0 - 4 % [facility] Basophils Percent Auto 0.6 0 - 2 % [facility] NRBC Pct Auto 0.0 0.0 - 0.2 /100WBC [facility] Neutrophils Absolute Auto 4.8 2.0 - 8.3 x10*3/uL [facility] Imm Gran Abs Auto 0.02 0.00 - 0.03 X10*3/uL [facility] Lymphocytes Absolute Auto 2.5 1.2 - 4.9 X10*3/uL [facility] Monocytes Absolute Auto 0.6 0.1 - 1.2 X10*3/uL [facility] Eosinophils Absolute Auto 0.2 0.0 - 0.4 X10*3/uL [facility] Basophils Absolute Auto 0.1 0.0 - 0.2 X10*3/uL [facility] NRBC Abs Auto 0.000 0.0 - 0.012 X10*3/uL [facility] 08/06/2024 1:51 PM EST 08/06/2024 1:51 PM EST us Generic External Data Provider LAB BLOOD ORDERAB LES Final Result Performing Organization Address City/State/[facility] Co de Phone Number [facility] [address] [place] [phone] [phone] documented in this encounter Visit Diagnoses Not on filedocumented in this encounter Additional Health Concerns Assessment Noted Time PHQ-9 Depression Total Score: 1 01/08/20 24 11:23 AM EDT documented as of this encounter Care Teams Manager Payment Relationship Specialty Start Date End Date Lanette Espinoza FNP [address] [place] [address] PCP - General Family Medicine 02/28/22 Sandra Enriquez MD [address] [place] [address] Rheumatology 06/11/24 Dariusz Lewis MD [address] [place] [address] Cardiology 06/11/24 Jens Rosa MD [address] [place] [address] Urology 06/11/24 documented as of this encounter
[2024-08-12 14:19] LABS: Anion Gap 10 (12-20); Blood Urea Nitrogen 16 mg/dL (9-16); Carbon Dioxide 27 mmol/L (22-29); Chloride 102 mmol/L (96-108); Estimated Glomerular Filt Rate > 60; Glucose Random 168 mg/dL (60-115); Potassium 3.9 mmol/L (3.3-5.1); Sodium 135 mmol/L (135-145)
== END 2024-08-12 11:53 | disposition home or self-care (01) ==
LOC: HO.HHCL 11:52
PROVIDERS: Visit Provider Registered Nurse
DX: E87.1 Hypo-osmolality and hyponatremia (principal)
CPT/HCPCS: 36415; 80048

== ENCOUNTER 2024-10-13 10:18 | Outpatient (AMB) | payer MEDICAID, SELFPAY ==
--- NOTE | 2024-10-13 10:20 | A.OFFVIS_ITS ---
Intake Visit Reasons: 1yr F/U Intake Note: Patient presents today for a yearly follow-UP Meds- None Allergies to Antibiotic- No Known Allergies Blood Thinner- None Pantry Steward/Stewardess Required: Yes Accompanied by: Self / Same As Patient Allergies acetaminophen [From TYLENOL PM] Allergy (Intermediate, Verified 10/13/24 10:23) ANXIETY celecoxib [From CELEBREX] Allergy (Intermediate, Verified 10/13/24 10:23) MALAISE diphenhydramine [From TYLENOL PM] Allergy (Intermediate, Verified 10/13/24 10:23) ANXIETY metoprolol [METOPROLOL] Allergy (Intermediate, Verified 10/13/24 10:23) RASH HPI Comments Details: Nishant is a pleasant male. He is a patient of Dr. Blair. He is seen for the following urologic conditions - Peyronie's disease background of diabetes oral control Yoruba translation provided by qualified medical staff specialist Yearly evaluation Penile curvature stable PSA less than 1. Age 58 can space out checks to every 2-3 years. Secondary issue intermittent right testicular pain. Has happened on 2 occasions. Prior history of hernia repair on right side. On exam does have tenderness at tail of epididymis. Peyronie's Disease: In setting of immune disease and diabetes PSA 06/18 0.4, 06/21 0.4, 07/24 0.4 Plaque stable with CABRERA and antiinflammatory medications Happy with results. The patient presents for followup up evaluation for penile disorder - improvement with CABRERA - happy with stable issue Primary complaint is penile curvature, dorsally, to the right, Peyronie's disease. The problem has been present starts 10/16. At this time he experiences partial erections sufficient for penetrative intercourse, that last until ejaculation. Sedillo has is unaffected. Associated symptoms include penile pain No Prior management includes 12/16 vaccum protocol. Strength of urinary stream no change. Associated conditions history of penile trauma No CAD No diabetes No erectile dysfunction No hypertension No peripheral vascular disease No Natural history of Peyronie's and treatment options have bee observation, use of vacuum device protocol, use of inflammatory wax room supervisor. [facility] Medical History (Updated 08/06/24 @ 13:38 by Beatrice Avitia MD) Seropositive rheumatoid arthritis Myalgia Pain in joint, multiple sites Rheumatoid factor positive Diabetes mellitus Chronic pain of right groin Hyperlipidemia Hypertension History of left inguinal hernia Surgical History History of right inguinal hernia repair History of esophagogastroduodenoscopy (EGD) Hx of colonoscopy History of nasal surgery History of back surgery Family History Brother Diabetes Mother Cancer Father Heart problem Maternal Grandmother Colon polyps Lupus Maternal Aunt Rheumatoid arthritis Maternal Uncle Rheumatoid arthritis Social History Household Members: Spouse Alcohol intake: current Alcohol intake frequency: holidays/special occasions only Patient Tobacco Use Status: Never used Tobacco Current occupational status: disabled Review of Systems Const Denies chills and Denies fever(s) Card Reports no additional complaints and Denies syncope Resp Denies cough GI Denies abdominal pain and Denies heartburn Reports as per HPI and Denies change in libido Neuro Denies syncope Psych Denies change in libido Endo Denies change in libido Physical Exam Const General: cooperative, healthy appearing, comfortable and no acute distress Orientation/consciousness: patient oriented x3 HEENT Face and sinus: Yes normal facial exam Mouth: moist mucous membranes Neck Neck: Yes normal visual inspection, Yes full ROM and Yes trachea midline Chest Chest palpation & inspection: normal inspection of the chest Resp Effort & Inspection: normal respiratory effort, able to speak in complete sentences and no respiratory distress GI Inspection: Yes normal to inspection Back/Spine/Pelvis Cervical Spine: normal cervical lordosis Thoracic/Lumbar Spine: thoracic and lumbar spine normal to inspection Skin General skin exam: no rashes or lesions noted Neuro General: patient oriented x3, gait normal, tone normal and moves all extremities Extrem General: Yes normal to inspection and Yes capillary refill normal Assessment & Plan Assessment & Plan (1) Peyronie's disease: Code(s): N48.6 - Induration penis plastica Category: Medical (2) Erectile dysfunction: Code(s): N52.9 - Male erectile dysfunction, unspecified Category: Medical Plan Twelve month follow-up office Patient Instructions: This note is constructed using voice recognition software. While every effort has been made to ensure accuracy professional housing consultant errors may have been included. Imaging studies, laboratory and physical exam results were discussed and reviewed in detail. No major barriers to patient understanding were identified. An opportunity to ask questions regarding the treatment plan was provided. All questions were answered. The patient expressed understanding and agreement with the above treatment plan. The patient is aware they should contact our office by phone for worsening of their current condition or the appearance of new urologic symptoms. Compliance is encouraged with any medications and followup testing that is ordered. It is a privilege to participate in the urologic care of your patient. If you have any questions or concerns regarding treatment for the above conditions, or other urologic issues, please do not hesitate to contact me. The office telephone contact is [phone]. Sincerely, Dr Jens Rosa MD, [facility] - Urology Compassionate Specialist Care for the Genitourinary System Coding Level of Care Code Est Pt Level 4 (79872) Complex EM visit Add On G2211 Diagnoses Peyronie's disease N48.6 Erectile dysfunction N52.9
--- OUTSIDE RECORDS SUMMARY | 2024-10-13 12:15 | XMS_ITS | Encounter Summary ---
Author Organization [employer] Address [address] [place] [address] 7t [place] [address] Care Team Providers Care Inspector Finishing Name Role Phone AlexisMartinezconchita COFFMAN Primary Care Provider [phone] Sandra Enriquez MD Unavailable Dariusz Lewis MD Unavailable [phone] Jens Rosa MD Unavailable [phone] Encounter Details Date Type Department Care Team (Latest Contact Info) Description 05/19/[address] [facility] CONVERSIONS Dental, Provider, DDS Social History [...] Care Team (Late st Contact Info) Description 11/02/2024 3:30 PM EDT Office Visit [facility] OPTOMETRY [address] [place], [place] [phone] Kasia Venegas, OD [address] [place], [place] [phone] 12/02/2024 11:00 AM EDT Office Visit [facility] [address] [place] [address] Marcela Sandy [address] [place] [address] documented as of this encounter Visit Diagnoses Not on filedocumented in this encounter Care Teams Inspector Finishing Relationship Specialty Start Date End Date Lanette Espinoza FNP [address] [place] [address] PCP - General Family Medicine 02/28/22 Sandra Enriquez MD [address] [place] [address] Rheumatology 06/11/24 Dariusz Lewis MD [address] [place] [address] Cardiology 06/11/24 Jens Rosa MD [address] [place] [address] Urology 06/11/24 documented as of this encounter
--- OUTSIDE RECORDS SUMMARY | 2024-10-13 12:15 | XMS_ITS | Encounter Summary ---
Author Organization [employer] Address [address] [place] [address] [address] [place] [address] Care Team Providers Care Gamma Operator Name Role Phone AlexisMartinezconchita COFFMAN Primary Care Provider [phone] Sandra Enriquez MD Unavailable Dariusz Lewis MD Unavailable [phone] Jens Rosa MD Unavailable [phone] Encounter Details Date Type Department Care Team (Latest Contact Info) Description 04/26/2021 Abstract [facility] CONVERSIONS Dental, Provider, DDS Social [...] Description 11/02/2024 3:30 PM EDT Office Visit [facility] OPTOMETRY [address] [place] [address] Kasia Venegas, OD [address] [place], [place] [phone] 12/02/2024 11:00 AM EDT Office Visit [facility] [address] [place] [address] Marcela Sandy [address] [place] [address] documented as of this encounter Visit Diagnoses Not on filedocumented in this encounter Care Teams Gamma Operator Relationship Specialty Start Date End Date Lanette Espinoza FNP [address] [place] [address] PCP - General Family Medicine 02/28/22 Sandra Enriquez MD [address] [place] [address] Rheumatology 06/11/24 Dariusz Lewis MD [address] [place] [address] Cardiology 06/11/24 Jens Rosa MD [address] [place] [address] Urology 06/11/24 documented as of this encounter
--- OUTSIDE RECORDS SUMMARY | 2024-10-13 12:15 | XMS_ITS | Encounter Summary ---
Author Organization [email or web address] Address [address] 7t [place] [address] Care Team Providers Care Batch Tester Name Role Phone Lanette Espinoza Primary Care Provider [phone] Sandra Enriquez MD Unavailable Dariusz Lewis MD Unavailable [phone] Jens Rosa MD Unavailable [phone] Encounter Details Date Type Department Care Team (Late st Contact Info) Description 05/16/2023 Abstract [facility] MEDICINE [address] [place] [address] Leonor Ignacio Social History Tobacco Use Types [...] Description 11/02/2024 3:30 PM EDT Office Visit [facility] OPTOMETRY [address] [place] [address] Theo, Kasia, OD [address] [place] [address] 12/02/2024 11:00 AM EDT Office Visit [facility] DENT[facility] [address] [place], [place] [phone] Marcela Sandy [address] [place] [address] documented as of this encounter Procedures Procedure [...] documented as of this encounter Care Teams Batch Tester Relationship Specialty Start Date End Date Lanette Espinoza FNP [address] [place] [address] PCP - General Family Medicine 02/28/22 Sandra Enriquez MD [address] [place] [address] Rheumatology 06/11/24 Dariusz Lewis MD [address] [place] [address] Cardiology 06/11/24 Jens Rosa MD [address] [place] [address] Urology 06/11/24 documented as of this encounter
--- OUTSIDE RECORDS SUMMARY | 2024-10-13 12:15 | XMS_ITS | Clinical Summary ---
Author Organization [employer] Address [address] [place] [address] 7[address] [place] [address] Care Team Providers Care Veneer Layer Name Role Phone Lanette Espinoza Primary Care Provider [phone] Sandra Enriquez MD Unavailable Dariusz Lewis MD Unavailable Jens Rosa MD Unavailable [phone] Allergies Active Allergy Reactions Criticality Noted Date Comments Celecoxib 08/26/2023 Metoprolol Rash Low 05/07/2017 Medications fluticasone (Flonase Allergy Relief) 50 MCG/ACT nasal [...] by mouth at bed time. 1 Active Owlxer-GP-Afapcmp n-Petrolatum (Preparation H) 1-0.25-14.4-15 % cream Apply [...] within 12 hours or as directed by MD. 30 patch 2 3 Active Blood Glucose [...] THE MORNING 90 tablet 3 4 Active atenolol (Tenormin) 50 MG tablet Take 1 tablet by mouth Once per day. 5 Active loperamide (Imodium) 2 MG capsule TAKE 1 CAPSULE BY MOUTH FOUR TIMES DAILY NEEDED FOR LOOSE STOOLS 5 Active Active Problems Problem Noted Date Diagnosed Date Rheumatoid factor positive 06/11/2024 Overview (06/11/2024): Following with [facility] Rheum - Dr. Enriquez Mar 2024: Prednisone trial that provided approx 50% relief Continues hydroxychloroquine 200mg BID through Rheum (initiated May 2024) Assessment & Plan (06/11/2024 4:20 PM EST): - Reports improvement in joint pains and fatigue since initiation of hydroxychloroquine Other irritable bowel syndrome 01/08/2024 Overview (01/08/2024): Following with [facility] GI - Wil [place] Continues dicyclomine 20mg TID Generalized pain 01/08/2024 Overview (01/08/2024): Labs September 2023 revealed positive RF (56.4 I U /mL), ANTHONY, CRP and sed rate WNL Eval through [facility] Rheum initiated November 2023 Hepatic steatosis 02/17/2023 [...] -Lifestyle interventions encouraged. Recommended reviewing information from [place] [employer] website. -Microalbumin: normal September 2023 [...] 2022 C-scope: Mar 2022, repeat 5 years ([facility] GI) Eye Exam: Followed by eye care at [facility] Skin check: last September 2022 by [facility] Derm team Basal cell carcinoma of face 04/27/2020 Overview (01/08/2024): S/p MOHS 2020 Followed once yearly by [facility] Derm (last appt September 2023) Left ventricular systolic dysfunction 08/20/2019 Mitral valve regurgitation 08/20/2019 Cervical radiculopathy 05/05/2018 Palpitations 01/27/2018 Overview (10/02/2023): Jul 2023: 48 hour Holter ordered by Dr. Lewis Mixed anxiety and depressive disorder 05/03/2017 Anxiety 04/19/2017 Essential hypertension 04/19/2017 Overview (10/03/2023): BP goal < 130/80 mmHg Continues following with Dr. Lewis Medication regimen: Atenolol 25mg daily Amlodipine 10mg [...] Encounters Date Type Department Care Team Description 10/02/2024 9:15 AM EDT Office Visit [facility] MEDICINE [address], [place] [phone] Abiel Goel MD History of basal cell carcinoma (Primary Dx); Skin cancer screening; Seborrheic keratosis; Hemangioma of skin 10/02/2024 9:00 AM EDT Office Visit [facility] OPTOMETRY [address] [place], [place] [phone] Presbyopia of both eyes (Primary Dx) 10/02/2024 Travel 09/11/2024 Population Health Risk Score [facility] ([facility] Department [address] [place] [address] [phone] Provider, Population Health Generic 08/20/2024 10:30 AM EST Office Visit [facility] OPTOMETRY [address] [place], [place] [phone] Theo, Kasia, OD Diabetes type 2, 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) (Primary Dx); Rheumatoid arthritis, involving unspecified site, unspecified whether rheumatoid factor present (CMS/HCC); High risk medication use; Optic nerve asymmetry, right; Early cataracts, bilateral; Presbyopia of both eyes 08/20/2024 Travel 08/10/2024 Telephone [facility] MEDICINE [address] [place] [address] Nathalia Waddell RN Results 08/09/2024 Orders Only [facility] MED & PEDS [address] [place] [address] Lanette Espinoza, [employer] Hyponatremia (Primary Dx) 08/06/2024 Orders Only GENERIC EXTERNAL DATA DEPARTMENT Provider, Generic External Data from Last 3 Months Immunizations Name Administration [...] Sign Reading Time Taken Comments Blood Pressure 130/88 10/02/2024 9:07 AM EDT Pulse 72 10/02/2024 9:07 AM EDT Temperature 37.1 ??C (98.7 ??F) 10/02/2024 9:07 AM ED T Respiratory Rate 18 10/02/2024 9:07 AM EDT Oxygen Saturation 98% 06/10/2024 11:48 AM EST Inhaled Oxygen Concentration - - Weight 88 kg (193 lb 14.4 oz) 10/02/2024 9:07 AM EDT Height 172.7 cm (5' 8 ) 10/02/2024 9:07 AM EDT Body Mass Index 29.48 10/02/2024 9:07 AM EDT Plan of Treatment Upcoming Encounters Date Type Department Care Team (Late st Contact Info) Description 11/02/2024 3:30 PM EDT Office Visit [facility] OPTOMETRY [address] [place] [address] Theo, Kasia, OD [address] [place] [address] 12/02/2024 11:00 AM EDT Office Visit [facility] [address], [place] [phone] Marcela Sandy [address] [place], [place] [phone] Health Maintenance Due Date Last Done Comments [...] 03/06/20 23, 01/23/2023, 07/26/2020, Additional history exists Hepatitis B Vaccines (2 of 3 - 19+ 3-dose series) 07/08/2024 06/10/2024 Diabetes: Hemoglobin A1C 09/08/2024 024, 01/08/2024, 10/02/2023, Additional history exists Lipid Panel 10/06/2024 10/07/2023, 08/02, 12/23/2020 Dental Prophylaxis 12/02/2024 06/02/2024, 0 08/26/2023, 04/26/2021, Additional history exists Depression Screening 01/07/2025 01/08/2024, 01/08/20 SDOH Screening 01/07/2025 01/08/2024 Diabetes: Urine Protein Screening 03/31/2025 03/31/2024, 10/07/2023 Derm Melanoma Skin Check 04/03/2025 025, 10/11/2023, 10/26/2022 Tobacco Screening 08/20/2025 08/20/2024 Eye Exam 08/20/2026 08/20/2024, 08/02, 08/20/2024, Additional history exists Colonoscopy 03/20/2027 03/20/2022 Colorectal Cancer Screening 03/20/2027 [...] Procedure Name Priority Date/Time Associated Diagnosis Comments BASIC METABOLIC PANEL Routine 08/12/2024 11:54 AM EST Hyponatremia SED RATE BY MODIFIED WESTERGREN Routine 08/06/2024 1:51 PM EST C-REACTIVE PROTEIN Routine 08/06/2024 1: 51 PM EST COMPREHENSIVE METABOLIC PANEL Routine 08/06/2024 1:51 PM EST CBC WITH AUTO DIFFERENTIAL Routine 08/06/2024 1:51 PM EST POCT GLYCATED HEMOGLOBIN, TOTAL Routine 06/10/2024 12:17 PM EST Type 2 diabetes mellitus without complication, without long-term current use of insulin ([facility]) PROPHYLAXIS - ADULT Routine 06/02/2024 1 0:00 AM EST HEPATITIS PANEL, GENERAL Routine 03/31/2024 4:20 PM EDT PROTEIN CREATININE RATIO, URINE Routine 03/31/2024 12:00 AM EDT LIPID PANEL, STANDARD Routine 10/07/2023 8:33 AM EDT Essential hypertension BITEWING - SINGLE RADIOGRAPHIC IMAGE Routine 03/06/2023 2:30 PM EDT PERIODIC ORAL EVALUATION - ESTABLISHED PATIENT Routine 01/23/2023 10:00 AM EDT HM COLONOSCOPY Routine 03/20/2022 INTRAORAL - COMPLETE SERIES OF RADIOGRAPHIC IMAGES Routine 02/11/2018 12:00 AM EDT from Last 3 Months or Most Recently Relevant to Health Maintenance Results * (ABNORMAL) Basic Metabolic Panel (08/12/2024 11:54 AM EST) [facility] Sodium 135 135 - 145 mmol/L [facility] Potassium 3.9 3.3 - 5.1 mmol/L [facility] Chloride 102 96 - 108 mmol/L [facility] Carbon Dioxide 27 22 - 29 mmol/L [facility] Anion Gap 10(L) 12 - 20 [facility] Urea Nitrogen (BUN) 16 9 - 16 mg/dL [facility] Creatinine, Serum 0.81 0.5 - 1.4 mg/dL [facility] Estimated Glomerular Filt Rate >60 [facility] Comment:Chronic Kidney Disea se: Estimated GFR < 60 mL/min/[id number] Kidney Disease: Estimated GFR < 15 mL/min/1.73m2 Glucose 168(H) 60 - 115 mg/dL [facility] Calcium 9.0 8.4 - 10.2 mg/dL [facility] Blood Venous blood specimen / Unknown 08/12/2024 11:54 AM EST 08/12/2024 1:35 PM EST us Lanette Espinoza [employer] LAB BLOOD ORDERABLES Final Res ult [facility] [address] [place], [place] [phone] * CBC auto differential (08/06/2024 1:51 PM EST) Pathologist [facility] White Blood Count 8.2 4.8 - 10.8 X10*3/uL [facility] Red Blood Count 5.29 4.60 - 5.80 X10*6/uL [facility] Hemoglobin 14.9 14.0 - 18.0 g/dl [facility] Hematocrit 43.0 42.0 - 52.0 % [facility] Mean Corpuscular Volume 81.3 80.0 - 98.0 fL [facility] Mean Corpuscular Hemoglobin 28.2 27.0 - 33.0 pg [facility] Mean Corpuscular HGB Conc 34.7 31.0 - 36.0 g/dl [facility] Red Cell Distribution Width 12.7 11.0 - 16.0 % [facility] Platelet Count 197 160 - 400 X10*3/uL [facility] Mean Platelet Volume 11.8 9.4 - 12.4 fL [facility] Neutrophils Percent Auto 58.5 45 - 73 % [facility] Imm Gran Pct Auto 0.2 0.0 - 0.4 % [facility] Lymphocytes Percent Auto 30.7 20 - 40 % [facility] Monocytes Percent Auto 7.1 2 - 11 % [facility] Eosinophils Percent Auto 2.9 0 - 4 % [facility] Basophils Percent Auto 0.6 0 - 2 % [facility] NRBC Pct Auto 0.0 0.0 - 0.2 /100WBC [facility] Neutrophils Absolute Auto 4.8 2.0 - 8.3 x10*3/uL [facility] Imm Gran Abs Auto 0.02 0.00 - 0.03 X10*3/uL [facility] Lymphocytes Absolute Auto 2.5 1.2 - 4.9 X10*3/uL [facility] Monocytes Absolute Auto 0.6 0.1 - 1.2 X10*3/uL [facility] Eosinophils Absolute Auto 0.2 0.0 - 0.4 X10*3/uL [facility] Basophils Absolute Auto 0.1 0.0 - 0.2 X10*3/uL [facility] NRBC Abs Auto 0.000 0.0 - 0.012 X10*3/uL [facility] 08/06/2024 1:51 PM EST 08/06/2024 1:51 PM EST Generic External Data Provider LAB BLOOD ORDERAB LES Final Result Performing Organization Address [facility] Phone Number [facility] [address] [place] [phone] * Sed Rate by Modified Dungergren (08/06/2024 1:51 PM EST) [facility] Erythrocyte Sedimentation Rate 1 0 - 15 MM/HR [facility] Comment:Patients with polycy themia and many hemoglobin abnormalitiesmay have depressed sed rates whereas patients with anemiamay have elevated sed rates. 08/06/2024 1:51 PM EST 08/06/2024 1:51 PM EST Generic External Data Provider LAB BLOOD ORDERAB LES Final Result Performing Organization Address [facility] [address] [place] [phone] * C-reactive Protein (08/06/2024 1:51 PM EST) [facility] C Reactive Protein 0.11 < or = 0.50 mg/dL [facility] 08/06/2024 1:51 PM EST 08/06/2024 1:51 PM EST Generic External Data Provider LAB BLOOD ORDERAB LES Final Result Performing Organization Address [facility] Phone Number [facility] [address] [place] [phone] * (ABNORMAL) Comprehensive Metabolic Panel (08/06/2024 1:51 PM EST) [facility] Sodium 130(L) 135 - 145 mmol/L [facility] Potassium 3.7 3.3 - 5.1 mmol/L [facility] Chloride 96 96 - 108 mmol/L [facility] Carbon Dioxide 27 22 - 29 mmol/L [facility] Anion Gap 11(L) 12 - 20 [facility] Urea Nitrogen (BUN) 12 9 - 16 mg/dL [facility] Creatinine, Serum 0.89 0.5 - 1.4 mg/dL [facility] Estimated Glomerular Filt Rate >60 [facility] Comment:Chronic Kidney Disea se: Estimated GFR < 60 mL/min/1.81e2Dnbibb Kidney Disease: Estimated GFR < 15 mL/min/1.73m2 Glucose 135(H) 60 - 115 mg/dL [facility] Calcium 8.6 8.4 - 10.2 mg/dL [facility] Bilirubin, Total 0.4 0.0 - 1.0 mg/dL [facility] Aspartate Amino Transferase 27 5 - 37 U/L [facility] Alanine Aminotransferase 36 0 - 40 U/L [facility] Total Protein 7.5 6.5 - 8.0 g/dL [facility] Albumin Level 4.4 3.5 - 5.0 g/dL [facility] Alkaline Phosphatase 61 39 - 117 U/L [facility] 08/06/2024 1:51 PM EST 08/06/2024 1:51 PM EST us Generic External Data Provider LAB BLOOD ORDERAB LES Final Result [facility] [address] [place] [phone] * (ABNORMAL) POCT HGB A1C (06/10/2024 12:17 PM EST) Hemoglobin A1C 7.2(A) 4.0 - 6.0 % Comment:[employer] Media Lot # [id number] Lot# Expiration Date [id number] Blood 06/10/2024 12:1 7 PM EST us Lanette Espinoza [employer] POINT OF CARE TEST ENTER/EDIT ORDERABLES Final Result * Hepatitis Panel, General (03/31/2024 4:20 PM EDT) Hepatitis A IgM Nonreactive Nonreactive [facility] Comment:IgM antibodies to MARISCAL V not detected; does not exclude earlyacute or recovered HAV infection. ~Hepatitis B Surface Antibody NONREACTIVE Nonreactive [facility] Comment:Nonreactive: < 8.00 mIU/mL Hepatitis B Core Antibody Nonreactive Nonreactive [facility] Hepatitis C Antibody Nonreactive Nonreactive [facility] Comment:Antibodies to HCV no t detected; does not exclude early acuteHCV infection. Hepatitis B Surface Ag Negative Negative [facility] 03/31/2024 4:20 PM EDT 03/31/2024 4:20 PM EDT Generic External Data Provider LAB BLOOD ORDERAB LES Final Result Performing Organization Address [facility] Co de Phone Number [facility] [address] [place] [phone] [phone] * Protein Creatinine Ratio, Urine (03/31/2024 12:00 AM EDT) Creatinine, Urine 189.26 mg/dL [facility] Protein, Total, Random Urine 9 <12 mg/dL [facility] Protein/Creati nine Ratio, Ur 0.05 <0.2 [facility] Comment:The spot urine prote in:creatinine ratio may increase to 0.3during normal . 03/31/2024 03/31/2024 Generic External Data Provider LAB URINE ORDERAB LES Final Result Performing Organization Address [facility] Co de Phone Number [facility] [address] [place] [phone] * Lipid Panel, Standard (10/07/2023 8:33 AM EDT) Triglycerides 125 <150 mg/dL [facility] Comment:Desirable Triglyceri de: less than 150 mg/dLBorderline High Triglyceride 150-199 mg/dLHigh Triglyceride: 200-499 mg/dLVery High Triglyceride: greater than or equal to 5OO mg/dL Cholesterol 142 <200 mg/dL [facility] Comment:Desirable Cholestero l: less than 200 mg/dLBorderline High Cholesterol: 200-239 mg/dLHigh Cholesterol: greater than 239 mg/dL LDL Cholesterol Calculated 75 <100 mg/dL [facility] Comment:Desirable LDL: less than 100 mg/dLNear Optimal/Above Optimal LDL: 110- 129 mg/dLBorderline High LDL: 130-159 mg/dLHigh LDL: 160-189 mg/dLVery High LDL: greater than or equal to 190 mg/dL HDL Cholesterol 42 >40 mg/dL [facility] Comment:Desirable HDL: great er than 40 mg/dL Note: This HDL assay may give artificially low results in patients with liver disease. Blood Venous blood specimen / Unknown 10/07/2023 8:33 AM EDT 10/07/2023 11:44 AM EDT Lanette Espinoza [employer] LAB BLOOD ORDERABLES Final Res ult [facility] [address] [place] [phone] * Colonoscopy (03/20/2022) Colonoscopy Normal Normal Narrative Leonor Ignacio - 03/20/2022 Recommended 5 year follow up Historical Provider HEALTH MAINTENANCE Final Result from Last 3 Months or Most Recently Relevant to Health Maintenance Insurance [facility] C3 [facility]ENT[facility] MEDICAID STAND ADULT Care Teams Veneer Layer Relationship Specialty Start Date End Date Lanette Espinoza FNP [address] [place] [address] PCP - General Family Medicine 02/28/22 Sandra Enriquez MD [address] [place] [phone] Rheumatology 06/11/24 Dariusz Lewis MD [address] [place] [phone] Cardiology 06/11/24 Jens Rosa MD [address] [place] [address] Drive [address] [place] [address] Urology 06/11/24
--- OUTSIDE RECORDS SUMMARY | 2024-10-13 12:15 | XMS_ITS | Encounter Summary ---
Author Organization [employer] Address [address] [facility] 7[address] [place] [address] Care Team Providers Care Laborer Vineyard Name Role Phone Lanette Espinoza Primary Care Provider [phone] Sandra Enriquez MD Unavailable Dariusz Lewis MD Unavailable [phone] Jens Rosa MD Unavailable [phone] Reason for Visit * Reason Comments Med Refill Encounter Details Date Type Department Care Team (Late st Contact Info) Description 10/12/2023 Refill [facility] [address] [place], [place] [phone] Chiara Mota MD [address] [place], [place] [phone] Essential hypertension Social History Tobacco Use Types [...] Description 11/02/2024 3:30 PM EDT Office Visit [facility] OPTOMETRY [address] [place] [address] Theo, Kasia, OD [address] [place] [address] 12/02/2024 11:00 AM EDT Office Visit [facility] [address] [place] [address] Vika, Marcela [address] [place] [address] documented as of this encounter Visit Diagnoses Diagnosis Essential hypertension Unspecified essential hypertension documented in this encounter Additional Health Concerns Assessment Noted Time PHQ-9 Depression Total Score: 0 10/23/19 23 11:15 AM EDT documented as of this encounter Care Teams Laborer Vineyard Relationship Specialty Start Date End Date Lanette Espinoza FNP [address] [place] [address] PCP - General Family Medicine 02/28/22 Sandra Enriquez MD [address] [place] [phone] Rheumatology 06/11/24 Dariusz Lewis MD [address] [place] [address] Cardiology 06/11/24 Jens Rosa MD [address] [place] [address] [place] [phone] Urology 06/11/24 documented as of this encounter
== END 2024-10-13 11:35 | disposition home or self-care (01) ==
LOC: HO.HUSH 10:18
PROVIDERS: PCP Registered Nurse; Visit Provider Urology
DX: N48.6 Induration penis plastica (principal); N52.9 Male erectile dysfunction, unspecified
CPT/HCPCS: 99214

== ENCOUNTER → 2024-10-13 10:18 | Outpatient (BNVA) | payer MEDICAID, SELFPAY | PROVIDERS: PCP Registered Nurse; Visit Provider Urology | DX: N48.6 Induration penis plastica (principal); N52.9 Male erectile dysfunction, unspecified | CPT/HCPCS: 99212 ==

== ENCOUNTER 2024-12-14 13:58 | Outpatient (REF) | payer MEDICAID, SELFPAY ==
[2024-12-14 15:07] LABS: MANUAL DIFF FLAG NO
[2024-12-14 15:23] LABS: Basophils Absolute Auto 0.1 X10*3/uL (0.0-0.2); Basophils Percent Auto 0.7 % (0-2); Eosinophils Absolute Auto 0.3 X10*3/uL (0.0-0.4); Eosinophils Percent Auto 3.9 % (0-4); Hematocrit 41.9 % (42.0-52.0); Hemoglobin 14.4 g/dl (14.0-18.0); Imm Gran Abs Auto 0.02 X10*3/uL (0.00-0.03); Imm Gran Pct Auto 0.3 % (0.0-0.4); Lymphocytes Percent Auto 40.6 % (20-40); Mean Corpuscular HGB Conc 34.4 g/dl (31.0-36.0); Mean Corpuscular Hemoglobin 28.2 pg (27.0-33.0); Mean Platelet Volume 11.8 fL (9.4-12.4); Monocytes Absolute Auto 0.5 X10*3/uL (0.1-1.2); Monocytes Percent Auto 7.2 % (2-11); Neutrophils Absolute Auto 3.5 x10*3/uL (2.0-8.3); Neutrophils Percent Auto 47.3 % (45-73); Platelet Count 180 X10*3/uL (160-400); Red Blood Count 5.11 X10*6/uL (4.60-5.80); Red Cell Distribution Width 12.6 % (11.0-16.0); White Blood Count 7.5 X10*3/uL (4.8-10.8)
[2024-12-14 15:49] LABS: Alanine Aminotransferase 37 U/L (0-40); Albumin Level 4.6 g/dL (3.5-5.0); Alkaline Phosphatase 63 U/L (39-117); Anion Gap 12 (12-20); Aspartate Amino Transferase 30 U/L (5-37); Bilirubin Total 0.2 mg/dL (0.0-1.0); Blood Urea Nitrogen 19 mg/dL (9-16); C Reactive Protein 0.18 mg/dL (< or = 0.50); Calcium 9.6 mg/dL (8.4-10.2); Carbon Dioxide 28 mmol/L (22-29); Chloride 101 mmol/L (96-108); Estimated Glomerular Filt Rate > 60; Glucose Random 149 mg/dL (60-115); Potassium 4.1 mmol/L (3.3-5.1); Sodium 137 mmol/L (135-145); Total Protein 7.1 g/dL (6.5-8.0)
[2024-12-14 16:02] LABS: Erythrocyte Sedimentation Rate 2 MM/HR (0-15)
== END 2024-12-14 13:59 | disposition home or self-care (01) ==
LOC: HO.LAB 13:58
PROVIDERS: PCP Registered Nurse; Visit Provider Student in an Organized Health Care Education/Training Program
DX: M05.9 Rheumatoid arthritis with rheumatoid factor, unspecified (principal); M15.9 Polyosteoarthritis, unspecified; Z79.899 Other long term (current) drug therapy
CPT/HCPCS: 36415; 80053; 85025; 85652; 86140; 99212

== ENCOUNTER 2024-12-14 13:58 | Outpatient (AMB) | payer MEDICAID, SELFPAY ==
--- NOTE | 2024-12-14 14:00 | MHC.OFFVIS ---
Vital Signs 12/14/24 14:06 Height 5 ft 8 in Weight 192 lb 14.472 oz BMI 29.3 BP 122/80 Blood Pressure Location Lt brachial Position Sitting Pulse 76 Pulse Source Pulse Oximeter Pulse Oximetry (%) 96 Oxygen Delivery Method Room Air Intake Visit Reasons: UCTD Intake Note: Patient presents for UCTD follow up. Insurance Advisor Required: Yes Insurance Advisor Language: Transplant Worker Services: Insurance Advisor Present Insurance Advisor Name: Jaylon [id number] Information Interpreted: non-clinical & clinical Allergies acetaminophen [From TYLENOL PM] Allergy (Intermediate, Verified 12/14/24 14:05) ANXIETY celecoxib [From CELEBREX] Allergy (Intermediate, Verified 12/14/24 14:05) MALAISE diphenhydramine [From TYLENOL PM] Allergy (Intermediate, Verified 12/14/24 14:05) ANXIETY metoprolol [METOPROLOL] Allergy (Intermediate, Verified 12/14/24 14:05) RASH Medication List - Last Reconciled 12/14/24 by Beatrice Avitia MD amlodipine 10 mg PO DAILY atenolol 50 mg PO DAILY benzonatate 100 mg PO DAILY PRN dicyclomine 20 mg PO TID doxepin 10 mg PO BEDTIME PRN hydroxychloroquine 200 mg PO BID 90 days hydroxyzine HCl 50 mg PO TID PRN lidocaine 5% 1 patch topical DAILY loperamide (Imodium A-D) 2 mg PO QID PRN metformin ER 500 mg PO BID risperidone 0.5 mg PO BID rosuvastatin 5 mg PO DAILY sertraline 200 mg PO DAILY tizanidine 2 mg PO TID PRN HPI Comments Details: Patient is a 59-year-old male with hypertension, hyperlipidemia, GERD who presents for follow up of positive rheumatoid factor in the setting of polyarthralgias. Interval History: Patient last seen 08/06/24 with me. At that time he was following up for his undifferentiated connective tissue disease on Plaquenil with improvement in symptoms. Today, He notes that he has some good days and bad days Showed me a photo of his right knee swelling. This resolved on its own. Notes pain in his joints especially when the weather is cold Rheumatologic History: Ddx UCTD 03/2024 Started plaquenil 03/2024 - effective Initial history: This is a 59-year-old male who presents for evaluation of a positive rheumatoid factor in the setting of polyarthralgias. He states that last November he woke up 1 day with right knee pain and swelling, the swelling self-resolved next day. He had similar pain and swelling of his right knee in 2020. It self-resolved. He states however that he has different pains in different joints such as his wrists, other knee, ankles. He wakes up with fatigue that can last anywhere from half an hour or until the evening. 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 He states that he was vaccinated for hepatitis. Current Rheumatology Medication(s): Plaquenil 400mg daily [facility] Medical History (Updated 08/06/24 @ 13:38 by Beatrice Avitia MD) Seropositive rheumatoid arthritis Myalgia Pain in joint, multiple sites Rheumatoid factor positive Diabetes mellitus Chronic pain of right groin Hyperlipidemia Hypertension History of left inguinal hernia Surgical History History of right inguinal hernia repair History of esophagogastroduodenoscopy (EGD) Hx of colonoscopy History of nasal surgery History of back surgery Family History Brother Diabetes Mother Cancer Father Heart problem Maternal Grandmother Colon polyps Lupus Maternal Aunt Rheumatoid arthritis Maternal Uncle Rheumatoid arthritis Social History Household Members: Spouse Alcohol intake: current Alcohol intake frequency: holidays/special occasions only Patient Tobacco Use Status: Never used Tobacco Current occupational status: disabled Review of Systems Const Details: Review of Systems Constitutional: Denies fever, chills, weight loss ENT: Denies vision changes, eye pain or eye redness, dental caries, dry mouth GI: Denies nausea, vomiting, diarrhea, abdominal pain, change in BM Pulm: Denies SOB, AGUILAR, hemoptysis, wheezing Cards: Denies chest pain, palpitations Skin: Denies Raynaud's, rash, nail changes, photosensitivity, [employer]ER: Denies headaches, weakness, paresthesias, recurrent falls MSK: as per HPI All other systems reviewed and are unremarkable except noted above Physical Exam Vital Signs: Last Vital Signs Pulse 76 12/14/24 14:06 BP 122/80 12/14/24 14:06 Pulse Ox 96 12/14/24 14:06 Oxygen Delivery Method Room Air 12/14/24 14:06 BMI result Body Mass Index 29.3 Vital signs reviewed Physical Examination CONSTITUITIONAL Patient alert and cooperative. Well appearing and in no apparent painful distress HEENT Conjunctiva and sclera clear. ?Pupils equal round and reactive to light. ?No lymphadenopathy. ? CHEST/RESPIRATORY SYSTEM Normal respiratory effort and able to speak in complete sentences. ?Clear to auscultation bilaterally. ?No crackles, rales, rhonchi, wheezes heard. CARDIAC SYSTEM Regular rate and rhythm. ?S1 and S2 heard no murmurs. ?Radial pulses intact bilaterally MSK Hands: ?Good regional commercial sales manager strength bilaterally.?No synovitis noted to the MCPs, PIPs or DIPs. ?No tenderness to palpation of these joints. Herbeden's nodes noted erin the 5th digit Wrists: ?Full range of motion at the wrists without pain. ?No tenderness to palpation or synovitis noted to the wrists. Elbows: Full range of motion without pain. No tenderness, weakness, swelling, increased warmth or erythema. Shoulders: Full range of motion bilaterally. TTP of the AC joints bilaterally. No tenderness, weakness, swelling, increased warmth or erythema. Knees: ?Slightly decreased knee extension on the left. Normal ROM of the right knee. Crepitations felt. No TTP of the knee joint Ankles: Full range of motion. ?No tenderness, swelling, increased warmth or erythema.? Feet: ?Negative squeeze test. ?No tenderness to palpation or swelling of the MTPs. Tender points:?No tenderness to palpation of the bilateral trapezius, supraspinatus, greater trochanters, anterior costochondral junctions, bilateral gluteal areas, bilateral suboccipital muscle insertions SKIN Skin intact without rashes. Results Reviewed Results Reviewed: Laboratory Tests 08/06/24 08/12/24 13:51 11:54 WBC 8.2 RBC 5.29 Hgb 14.9 Hct 43.0 Plt Count 197 ESR 1 Sodium 135 Potassium 3.9 Chloride 102 Carbon Dioxide 27 BUN 16 Creatinine 0.81 Total Bilirubin 0.4 AST 27 ALT 36 Alkaline Phosphatase 61 C-Reactive Protein 0.11 Total Protein 7.5 Albumin 4.4 XR Bilateral Knees 11/2023 FINDINGS: Right knee: There is chondrocalcinosis. Patellofemoral compartment marginal osteophytes without joint space narrowing indicative of mild osteoarthritis. The medial lateral compartments are normal. No effusion. No erosions. Left knee: There is chondrocalcinosis. There are small marginal osteophytes about the lateral compartment and patellofemoral compartment indicative of mild arthrosis. No joint space narrowing. Compartment unremarkable other than chondrocalcinosis. There is a bony excrescence extending off the posterior lateral aspect of the tibia likely reflecting a sessile osteochondroma no visible cartilaginous cap. Surrounding soft tissues unremarkable. IMPRESSION: RIGHT KNEE: Chondrocalcinosis. Mild osteoarthritis. LEFT KNEE: Chondrocalcinosis. Mild osteoarthritis. Sessile osteochondroma. XR Hands Bilateral 11/2023 FINDINGS: Right hand: The bones joints and soft tissues are normal. No erosions. Normal alignment. Left hand: The bones joints and soft tissues are normal. No erosions. Normal alignment. IMPRESSION: RIGHT HAND: Normal. LEFT HAND: Normal. Assessment & Plan Assessment & Plan (1) Seropositive rheumatoid arthritis: Comment: +RF -CCP Plaquenil 03/2024 Code(s): M05.9 - Rheumatoid arthritis with rheumatoid factor, unspecified Category: Medical Plan: #Seropositive RA Patient is a 59-year-old male with hypertension who presents for follow up of polyarthralgias in the setting of a positive rheumatoid factor. In the past he had had did not have any response to prednisolone but has had good response to Plaquenil. Given his positive RF, strong family history is likely that he has either early rheumatoid arthritis or potentially palindromic rheumatoid arthritis way I think he is doing much better on the Plaquenil and we will continue this. Plan - Follow up HCQ 200mg bid - Labs today: CBC, CMP, ESR, CRP - RTC 4 months (2) Generalized osteoarthritis: Code(s): M15.9 - Polyosteoarthritis, unspecified Plan: #Polyarticular OA I had a long discussion with the patient about osteoarthritis and the difference between osteoarthritis and rheumatoid arthritis. His pains currently are related to his degenerative joint disease as there is no active synovitis on examination. Recommending topical diclofenac 4 times a day (3) Long-term use of hydroxychloroquine: Code(s): Z79.899 - Other mcc (current) drug therapy Category: Medical Plan: #Long-term Use of Hydroxychloroquine Discussed with patient the risks and benefits of hydroxychloroquine in managing the rheumatic condition Benefits include: - Reduced pain, reduce mortality, maintenance of remission and reduction of flares Risks include: - GI upset, skin hyperpigmentation, retinal toxicity (especially after more than 5 years of use), myopathy Advised yearly ophthalmology visits Plan I spent 35 minutes reviewing the record and labs, taking a history, examining the patient, discussing the treatment plan, explaining the difference between OA and RA, and documenting in the medical record Orders: Orders Complete Blood Count Auto Diff Today M05.9 - Rheumatoid arthritis with rheumatoid factor, unspecified Comprehensive Met. Panel Today M05.9 - Rheumatoid arthritis with rheumatoid factor, unspecified C Reactive Protein Today M05.9 - Rheumatoid arthritis with rheumatoid factor, unspecified Erythrocyte Sedimentation Rate Today M05.9 - Rheumatoid arthritis with rheumatoid factor, unspecified Medications: New diclofenac sodium 1% (Arthritis Pain (diclofenac)) apply to single knee, ankle, foot; for foot includes sole/toes/top of foot 4 grams topical QID 100 grams 5RF M15.9 - Polyosteoarthritis, unspecified Refilled hydroxychloroquine 200 mg PO BID 90 days 180 tabs 1RF M06.9 - Rheumatoid arthritis, unspecified Coding Level of Care Code Est Pt Level 4 (39849) Complex EM visit Add On G2211 Diagnoses Seropositive rheumatoid arthritis M05.9 Generalized osteoarthritis M15.9 Long-term use of hydroxychloroquine Z79.899
[2024-12-14 14:06] VITALS: BP 122/80; PULSE 76; O2SAT 96; BMI 29.3
--- OUTSIDE RECORDS SUMMARY | 2024-12-14 15:39 | XMS_ITS | Clinical Summary ---
Author Organization [email or web address] Address [address] [place] [address] Care Team Providers Care Finisher Polisher Name Role Phone Lanette Espinoza Primary Care Provider [phone] Sandra Enriquez MD Unavailable Dariusz Lewis MD Unavailable [phone] Jens Rosa MD Unavailable [phone] Allergies Active Allergy Reactions Criticality Noted Date [...] by mouth at bed time. 1 Active [id number] n-Petrolatum (Preparation H) 1-0.25-14.4-15 % cream Apply [...] CRUSH, CHEW, OR SPLIT 180 tablet 3 07/16/202 4 Active rosuvastatin (Crestor) 5 MG tabletIndications :Essential hypertension Take 1 tablet (5 mg) by mouth at bedtime. (For cholesterol) 90 tablet 3 4 Active doxepin (SINEquan) 10 MG capsule Take 10 mg by mouth if needed at bedtime for sleep. 4 Active hydroxychloroquin e (Plaquenil) 200 MG tablet Take 1 tablet by mouth 2 times daily. 4 Active atenolol (Tenormin) 50 MG tablet Take 1 tablet by mouth Once per day. 5 Active loperamide (Imodium) 2 MG capsule TAKE 1 CAPSULE BY MOUTH FOUR TIMES DAILY NEEDED FOR LOOSE STOOLS 5 Active amLODIPine (Norvasc) 10 MG tabletIndications :Essential hypertension TAKE 1 TABLET(10 MG) BY MOUTH IN THE MORNING 90 tablet 3 5 Active Active Problems Problem Noted Date Diagnosed Date Rheumatoid factor positive 06/11/2024 Overview (06/11/2024): Following with [facility] Rheum - Dr. Enriquez Mar 2024: Prednisone trial that provided approx 50% relief Continues hydroxychloroquine 200mg BID through Rheum (initiated May 2024) Assessment & Plan (06/11/2024 4:20 PM EST): - Reports improvement in joint pains and fatigue since initiation of hydroxychloroquine Other irritable bowel syndrome 01/08/2024 Overview (01/08/2024): Following with [facility] GI - Wil CENTER MAKER HAND Continues dicyclomine 20mg TID Generalized pain 01/08/2024 Overview (01/08/2024): Labs September 2023 revealed positive RF (56.4 I U /mL), ANTHONY, CRP and sed rate WNL Eval through [facility] Rheum initiated November 2023 Hepatic steatosis 02/17/2023 [...] -Lifestyle interventions encouraged. Recommended reviewing information from [place] [employer] website. -Microalbumin: normal September 2023 [...] 2022 C-scope: Mar 2022, repeat 5 years ([facility] GI) Eye Exam: Followed by eye care at [facility] Skin check: last September 2022 by [facility] Derm team Basal cell carcinoma of face 04/27/2020 Overview (01/08/2024): S/p MOHS 2020 Followed once yearly by [facility] Derm (last appt September 2023) Left [...] Encounters Date Type Department Care Team Description 12/14/2024 Orders Only GENERIC EXTERNAL DATA DEPARTMENT Provider, Generic External Data 12/02/2024 11:00 AM EDT Office Visit [facility] [address], [place] [phone] Marcela Sandy Localized chronic moderate periodontitis (Primary Dx) 11/02/2024 3:30 PM EDT Office Visit [facility] OPTOMETRY [address] [place], [place] [phone] Theo, Kasia, OD Rheumatoid arthritis, involving unspecified site, unspecified whether rheumatoid factor present ([facility]) (Primary Dx); High risk medication use 11/02/2024 Travel 10/20/2024 Travel 10/20/2024 Telephone [facility] [address] [place] [address] Lanette Espinoza FNP September10/14/2024 Refill [facility] [address] [place] [address] Lanette Espinoza FNP Essential hypertension 10/14/2024 Refill [facility] [address] [place] [address] Lanette Espinoza FNP Essential hypertension 10/02/2024 9:15 AM EDT Office Visit [facility] [address] [place] [address] Abiel Goel MD History of basal cell carcinoma (Primary Dx); Skin cancer screening; Seborrheic keratosis; Hemangioma of skin 10/02/2024 9:00 AM EDT Office Visit [facility] OPTOMETRY [facility] [place] [address] Presbyopia of both eyes (Primary Dx) 10/02/2024 Travel from Last 3 Months Immunizations Immunization Administration Dates Next Due Hep B, adult [...] Male 02/17/2023 6:22 PM EDT Sexual Orientation Straight 11/03/2024 10 :27 AM EDT Last Filed Vital Signs Vital Sign Reading Time Taken Comments Blood Pressure 128/74 12/02/2024 10:40 AM EDT Pulse 72 10/02/2024 9:07 AM [...] Care Team (Late st Contact Info) Description 12/21/2024 2:30 PM EDT Office Visit [facility]ULT D[facility] [address] [place] [address] Joan Morelos, DDS [address] [place] [address] 01/06/2025 11:30 AM EDT Office Visit [facility] [address] [place] [address] Lanette Espinoza FNP [address] [place] [address] 02/12/2025 11:15 AM EDT Office Visit [facility] [address] [place] [address] Abiel Goel MD [address] [place] [address] 06/03/2025 1:00 PM EST Office Visit [facility] [address], [place] [phone] Marcela Sandy [address] [place] [address] Health Maintenance Due Date Last Done Comments CT Colonography 1965 FIT DNA/Cologuard 1965 FIT 1965 FOBT 1965 HIV Screening 1965 Sigmoidoscopy 1965 Disability Screening 1965 Diabetes: Foot Exam 1975 Alcohol/Substance Use Screening 1977 Hepatitis A Vaccines (1 of 2 - Risk 2-dose series) 1984 Dental X-Ray: Full Mouth 02/12/2021 02/11/2018 Hepatitis B Vaccines (2 of 3 - 19+ 3-dose series) 07/08/2024 06/10/2024 Diabetes: Hemoglobin A1C 09/08/2024 024, 01/08/2024, 10/02/2023, Additional history exists Lipid Panel 10/06/2024 10/07/2023, 08/02, 12/23/2020 Depression Screening 01/07/2025 01/08/2024, 01/08/20 24 SDOH Screening 01/07/2025 01/08/2024 Diabetes: Urine Protein Screening 03/31/2025 03/31/2024, 10/07/2023 Derm Melanoma Skin Check 04/03/2025 025, 10/11/2023, 10/26/2022 Dental Oral Exam 06/04/2025 12/02/2024, , 07/26/2020, Additional history exists Dental Prophylaxis 06/04/2025 12/02/2024, 1 08/03/2023, 08/26/2023, Additional history exists Tobacco Screening 12/02/2025 12/02/2024 Dental X-Ray: Bitewings 12/03/2025 12/03/19, 03/06/2023, 01/23/2023, Additional history exists Eye Exam 11/02/2026 11/02/2024, 08/02, 08/20/2024, Additional history exists Colonoscopy 03/20/2027 [...] patient's age to complete this topic Meningococcal B Vaccine Aged Out No l onger eligible based on patient's age to complete [...] Diagnosis Comments CBC WITH AUTO DIFFERENTIAL Routine 12/14/2024 3:06 PM EDT PERIODIC ORAL EVALUATION - ESTABLISHED PATIENT Routine 12/02/2024 11:00 AM EDT CASE PRESENTATION, DETAILED AND EXTENSIVE TREATMENT PLANNING Routine 12/02/2024 11:00 AM EDT BITEWINGS - 4 RADIOGRAPHIC IMAGES Routine 12/02/2024 11:00 AM EDT PROPHYLAXIS - ADULT Routine 12/02/2024 1 1:00 AM EDT AUTOMATED VISUAL FIELD, INTERMEDIATE - OU - BOTH EYES Routine 11/02/2024 6:00 PM EDT Rheumatoid arthritis, involving unspecified site, unspecified whether rheumatoid factor present (CMS/HCC) High risk medication use POCT GLYCATED HEMOGLOBIN, TOTAL Routine 06/10/2024 12:17 PM EST Type 2 diabetes mellitus without complication, without long-term current use of insulin (CMS/HCC) HEPATITIS PANEL, GENERAL Routine 03/31/2024 4:20 PM EDT PROTEIN CREATININE RATIO, URINE Routine 03/31/2024 12:00 AM EDT LIPID PANEL, STANDARD Routine 10/07/2023 8:33 AM EDT Essential hypertension HM COLONOSCOPY Routine 03/20/2022 INTRAORAL - COMPLETE SERIES OF RADIOGRAPHIC IMAGES Routine 02/11/2018 12:00 AM EDT from Last 3 Months or Most Recently Relevant to Health Maintenance Results * (ABNORMAL) CBC auto differential (12/14/2024 3:06 PM EDT) White Blood Count 7.5 4.8 - 10.8 X10*3/uL [facility] Red Blood Count 5.11 4.60 - 5.80 X10*6/uL [facility] Hemoglobin 14.4 14.0 - 18.0 g/dl [facility] Hematocrit 41.9(L) 42.0 - 52.0 % [facility] Mean Corpuscular Volume 82.0 80.0 - 98.0 fL [facility] Mean Corpuscular Hemoglobin 28.2 27.0 - 33.0 pg [facility] Mean Corpuscular HGB Conc 34.4 31.0 - 36.0 g/dl [facility] Red Cell Distribution Width 12.6 11.0 - 16.0 % [facility] Platelet Count 180 160 - 400 X10*3/uL [facility] Mean Platelet Volume 11.8 9.4 - 12.4 fL [facility] Neutrophils Percent Auto 47.3 45 - 73 % [facility] Imm Gran Pct Auto 0.3 0.0 - 0.4 % [facility] Lymphocytes Percent Auto 40.6(H) 20 - 40 % [facility] Monocytes Percent Auto 7.2 2 - 11 % [facility] Eosinophils Percent Auto 3.9 0 - 4 % [facility] Basophils Percent Auto 0.7 0 - 2 % [facility] NRBC Pct Auto 0.0 0.0 - 0.2 /100WBC [facility] Neutrophils Absolute Auto 3.5 2.0 - 8.3 x10*3/uL [facility] Imm Gran Abs Auto 0.02 0.00 - 0.03 X10*3/uL [facility] Lymphocytes Absolute Auto 3.0 1.2 - 4.9 X10*3/uL [facility] Monocytes Absolute Auto 0.5 0.1 - 1.2 X10*3/uL [facility] Eosinophils Absolute Auto 0.3 0.0 - 0.4 X10*3/uL [facility] Basophils Absolute Auto 0.1 0.0 - 0.2 X10*3/uL [facility] NRBC Abs Auto 0.000 0.0 - 0.012 X10*3/uL [facility] 12/14/2024 3:06 PM EDT 12/14/2024 3:06 PM EDT us Generic External Data Provider LAB BLOOD ORDERAB LES Final Result [facility] [address] [place] [address] [phone] * Automated Visual Field, Intermediate - OU - Both Eyes (11/02/2024 6:00 PM EDT) Narrative Kasia Venegas, OD - 11/26/2024 12:54 PM EDT VISUAL FIELD INTERPRETATION Visual Field Interpretation Test Details: 10-2 Standard / White/White / 4000 / III Dynamic Octopus field Reliability Indices: False positive errors OD: 0/14 OS: 0/9 False negative errors OD: 015 OS: 0/10 Statistical Indices: MS [src]: OD: 30.7 dB OS: 31.3 dB MD [< 2.0 src]: OD: -0.8 dB OS: -1.3 dB sLV [< 2.5 src]: OD: 2.0 dB OS: 1.3 dB Impression: Reason for testin-2 central visual field test to monitor for Plaquenil maculopathy Test Reliability: Reliable, no false negatives/positives. ?? Impression: Right eye: 3 isolated defects, not adjacent. Otherwise clean field. Left eye: No visual field defects present; clean field. Progression: No other tests available for comparison. Management Plan: No concern for Plaquenil maculopathy at this time in either eye. Will monitor annually. Kasia Theo OD OPHTH VISUAL FIELD Final Resu lt * (ABNORMAL) POCT HGB A1C (06/10/2024 12:17 PM EST) Hemoglobin A1C 7.2(A) 4.0 - 6.0 % Comment:Random QC Media Lot # [id number] Lot# Expiration Date [id number] Blood 06/10/2024 12:1 7 PM EST Lanette Espinoza PLATE MOUNTER POINT OF CARE TEST ENTER/EDIT ORDERABLES Final [...] ORDERAB LES Final Result Performing Organization Address [facility] Co de Phone Number [facility] [address] [place] [phone] * Protein Creatinine Ratio, Urine (03/31/2024 12:00 AM EDT) Creatinine, Urine 189.26 mg/dL [facility] Protein, Total, Random Urine 9 <12 mg/dL [facility] Protein/Creati nine Ratio, Ur 0.05 <0.2 [facility] Comment:The spot urine prote in:creatinine ratio may increase to 0.3during normal . 03/31/2024 03/31/2024 Generic External Data Provider LAB URINE ORDERAB LES Final Result Performing Organization Address [facility] Co de Phone Number [facility] [address] [place] [phone] * Lipid Panel, Standard (10/07/2023 8:33 AM EDT) Triglycerides 125 <150 mg/dL [facility] Comment:Desirable Triglyceri de: less than [...] 190 mg/dL HDL Cholesterol 42 >40 mg/dL [facility] Comment:Desirable HDL: great er than 40 mg/dL Note: This HDL assay may give artificially low results in patients with liver disease. Blood Venous blood specimen / Unknown 10/07/2023 8:33 AM EDT 10/07/2023 11:44 AM EDT us Lanette Espinoza PLATE MOUNTER LAB BLOOD ORDERABLES Final Res ult [facility] [address] [place] [address] [phone] * Colonoscopy (03/20/2022) Colonoscopy Normal Normal Narrative Leonor Ignacio - 03/20/2022 Recommended 5 year follow up Historical Provider MD HEALTH MAINTENANCE Final Result from Last 3 Months or Most Recently Relevant to Health Maintenance Insurance [facility] C3 DENTAL-[facility] MEDICAID STAND ADULT Care Teams Finisher Polisher Relationship Specialty Start Date End Date Lanette Espinoza FNP [address] [place] [address] PCP - General Family Medicine 02/28/22 Sandra Enriquez MD [address] [place] [address] Rheumatology 06/11/24 Dariusz Lewis MD [address] [place] [address] Cardiology 06/11/24 Jens Rosa MD [address] [place] [address] Urology 06/11/24
== END 2024-12-14 14:50 | disposition home or self-care (01) ==
LOC: HO.RHE 13:59
PROVIDERS: PCP Registered Nurse; Visit Provider Student in an Organized Health Care Education/Training Program
DX: M05.79 Rheumatoid arthritis with rheumatoid factor of multiple sites without organ or systems involvement (principal); M15.9 Polyosteoarthritis, unspecified; Z79.899 Other long term (current) drug therapy; M35.89 Other specified systemic involvement of connective tissue
CPT/HCPCS: 99214

== ENCOUNTER 2025-03-12 13:54 | Outpatient (AMB) | payer MEDICAID, SELFPAY ==
--- NOTE | 2025-03-12 13:58 | A.OFFVIS_ITS ---
Vital Signs 03/12/25 14:22 Height 5 ft 8 in Weight 191 lb BMI 29.0 BP 124/76 Blood Pressure Location Rt brachial Position Sitting Pulse 71 Intake Visit Reasons: Gerd Follow up r/s 02/19/25 Intake Note: Patient in office today in follow up of GERD. CC: Pt states that yesterday and before yesterday he hasn't been healing well from his stomach. He states that before yesterday his abdominal RUQ swelled up and it has been going down but still he feels it still swollen. He also reports occasional epigastric pain. He was having diarrhea yesterday, saw a little blood a few days ago when wiping after a BM. He also reports an episode a few months ago where he was eating very anxiously and after swallowing the food and liquid came back up. Morning Show Newscast Producer Required: Yes Morning Show Newscast Producer Language: Gathering Worker Name: MIGUEL ANGEL [facility] Accompanied by: Self / Same As Patient Allergies acetaminophen (From TYLENOL PM) Allergy (Intermediate, Verified 04/07/25 14:29) ANXIETY celecoxib (From CELEBREX) Allergy (Intermediate, Verified 04/07/25 14:29) MALAISE diphenhydramine (From TYLENOL PM) Allergy (Intermediate, Verified 04/07/25 14:29) ANXIETY metoprolol (METOPROLOL) Allergy (Intermediate, Verified 04/07/25 14:29) RASH HPI HPI Gerd Follow up r/s 02/19/25: Details: Assessment & Plan (1) Irritable bowel syndrome with diarrhea: Code(s): K58.0 - Irritable bowel syndrome with diarrhea Category: Medical (2) GERD (gastroesophageal reflux disease): Comment: He appears was resolved with restoring bowel motility Code(s): K21.9 - Gastro-esophageal reflux disease without esophagitis Category: Medical Plan [place] #[id number] Smith Apparently, he saw rheumatology and was put on hydroxychloroquine and doxypin, he is generally doing well, but he had an episode a few days ago of pain in the abd after eating something different from his usual diet and this has caused warren rrhea after he will have pain. The abd pain has resolved but the diarrhea continues. He continues on his dicyclomine but apparently this is insufficient to control the diarrhea This could be a s/e of the hydroxychloroquine as this IS a common s/e of this, but we will treat for now with imodium and watch and wait to see if this resolved w/o any other interventions. He DOES have solid BM's at times, so this may be a resolving food pathogen etc that it is likely too late to do stool testing on. next available. Medications: New loperamide (Imodium A-D) 2 mg PO QID PRN 90 caps 1RF loose stool Refilled dicyclomine 20 mg PO TID 90 tabs 6RF for abdominal pain K58.0 - Irritable bowel syndrome with diarrhea TODAY'S VISIT [place] #V Live [facility] Medical History Pain in joint, multiple sites Seropositive rheumatoid arthritis Myalgia Rheumatoid factor positive Diabetes mellitus Chronic pain of right groin Hyperlipidemia Hypertension History of left inguinal hernia Surgical History History of right inguinal hernia repair History of esophagogastroduodenoscopy (EGD) Hx of colonoscopy History of nasal surgery History of back surgery Family History Brother Diabetes Mother Cancer Father Heart problem Maternal Grandmother Colon polyps Lupus Maternal Aunt Rheumatoid arthritis Maternal Uncle Rheumatoid arthritis Social History Household Members: Spouse Alcohol intake: current Alcohol intake frequency: holidays/special occasions only Patient Tobacco Use Status: Never used Tobacco Current occupational status: disabled Review of Systems Const Denies fatigue, Denies fever(s), Denies night sweats, Denies poor appetite and Denies weight loss Eyes Reports requires corrective lenses ENT Reports Normal hearing present, Denies dental pain, Denies dysphagia, Denies hearing loss, Denies mouth pain, Denies odynophagia, Denies throat swelling, Denies tongue swelling and Reports other (Dentition adequate) GI Details: Denies abdominal pain, Denies melena, Denies bloating, Denies hematochezia, Denies constipation, Denies GI cramping, Denies dysphagia, Denies excessive flatus, Denies early satiety, Denies heartburn, Denies diarrhea, Denies nausea, Denies odynophagia, Denies vomiting and Denies hematemesis Skin/Breast Denies pruritus, Denies lesions, Denies rash and Denies jaundice Neuro Reports Normal hearing present and Denies Abnormal speech present Endo Denies fatigue Aller/Immun Denies throat swelling and Denies tongue swelling Physical Exam Vital Signs: Last Vital Signs Pulse 71 03/12/25 14:22 BP 124/76 03/12/25 14:22 BMI result Body Mass Index 29.0 Const General: cooperative, no acute distress, well developed and well groomed Nutritional Appearance: well nourished, obese and overweight Orientation/consciousness: oriented to person, oriented to place and oriented to time Limitations: No language barrier, ambulation with cane, ambulation with walker and wheelchair HEENT Head: Yes normocephalic and Yes atraumatic Eyes General: appearance normal, both eyes and all related structures Pupils: Equal, round and reactive pupils present Neck Neck: Yes normal visual inspection and Yes no lymphadenopathy Thyroid: Thyroid normal Resp Effort & Inspection: normal respiratory effort and able to speak in complete sentences Auscultation: clear to auscultation bilaterally Cardio Rate: regular rate Rhythm: regular rhythm Heart sounds: Normal, physiologic split S2 sound present Peripheral pulses: radial pulses present and posterior tibial pulses present GI Inspection: No distended and No Abdominal panniculus present Palpation (GI): Soft to palpation, nontender, no guarding, not rigid, No hepatosplenomegaly present and Hepatosplenomegaly present Percussion: Yes normal to percussion Auscultation: normal bowel sounds Rectal Exam - Male: Yes deferred Skin General skin exam: no rashes or lesions noted, turgor normal, skin not dry, no jaundice, No spider nevi and no striae Rashes: no rashes Nails: normal Neuro General: oriented to person, oriented to place and oriented to time Cranial nerves: Yes Equal, round and reactive pupils present and Yes Normal hearing present Speech: No Abnormal speech present Extrem General: Yes normal to inspection, No clubbing, No cyanosis and No edema Psych Thought process: Normal thought process present and not confabulating Thought content: Normal thought content present Insight: Good insight present (Psych) Judgement: Good judgement present (Psych) Assessment & Plan Assessment & Plan (1) Irritable bowel syndrome with diarrhea: Code(s): K58.0 - Irritable bowel syndrome with diarrhea Category: Medical (2) GERD (gastroesophageal reflux disease): Comment: He appears was resolved with restoring bowel motility Code(s): K21.9 - Gastro-esophageal reflux disease without esophagitis Category: Medical (3) Right sided abdominal pain: Code(s): R10.9 - Unspecified abdominal pain Category: Medical Plan [place] #V Live He finds that the loperamide in the dicyclomine or helpful for his diarrhea. However he continues to have abdominal bloating of uncertain origin. At this point I think we should get an ultrasound to see if there is any gallbladder problems. He continues to have dysphagia but his family seems to think that this is related to eating too quickly which causes gas trapping of air bubbles in the throat. Return office visit after the ultrasound Orders: Orders US abdomen complete 03/12/25 R10.9 - Unspecified abdominal pain Medications: Refilled dicyclomine 20 mg PO TID 90 tabs 6RF for abdominal pain K58.0 - Irritable bowel syndrome with diarrhea loperamide 2 mg PO QID PRN 90 caps 1RF for diarrhea Coding Level of Care Code Est Pt Level 3 (81681) Diagnoses Irritable bowel syndrome with diarrhea K58.0 GERD (gastroesophageal reflux disease) K21.9 Right sided abdominal pain R10.9
[2025-03-12 14:22] VITALS: BP 124/76; PULSE 71; BMI 29.0
== END 2025-03-12 16:32 | disposition home or self-care (01) ==
PROVIDERS: PCP Registered Nurse; Visit Provider Nurse Practitioner
DX: K58.0 Irritable bowel syndrome with diarrhea (principal); K21.9 Gastro-esophageal reflux disease without esophagitis; R10.9 Unspecified abdominal pain
CPT/HCPCS: 99213

== ENCOUNTER → 2025-03-12 13:54 | Outpatient (BNVA) | payer MEDICAID, SELFPAY | PROVIDERS: PCP Registered Nurse; Visit Provider Nurse Practitioner | DX: K21.9 Gastro-esophageal reflux disease without esophagitis (principal); K58.0 Irritable bowel syndrome with diarrhea; R10.9 Unspecified abdominal pain; Z79.899 Other long term (current) drug therapy | CPT/HCPCS: 99212 ==

== ENCOUNTER 2025-04-07 14:13 | Outpatient (AMB) | payer MEDICAID, SELFPAY ==
--- NOTE | 2025-04-07 14:24 | A.OFFVIS_ITS ---
Vital Signs 04/07/25 14:30 Height 5 ft 8 in Weight 191 lb 12.835 oz BMI 29.2 BP 124/80 Blood Pressure Location Lt brachial Position Sitting Pulse 71 Pulse Source Pulse Oximeter Pulse Oximetry (%) 96 Oxygen Delivery Method Room Air Intake Visit Reasons: UCTD Intake Note: Patient presents for UCTD follow up. Patrol Police Lieutenant Required: Yes Patrol Police Lieutenant Language: Dietetic Assistant Services: Patrol Police Lieutenant Present Patrol Police Lieutenant Name: Ovidio [id number] Information Interpreted: non-clinical & clinical Allergies acetaminophen (From TYLENOL PM) Allergy (Intermediate, Verified 04/07/25 14:29) ANXIETY celecoxib (From CELEBREX) Allergy (Intermediate, Verified 04/07/25 14:29) MALAISE diphenhydramine (From TYLENOL PM) Allergy (Intermediate, Verified 04/07/25 14:29) ANXIETY metoprolol (METOPROLOL) Allergy (Intermediate, Verified 04/07/25 14:29) RASH HPI Comments Details: Patient is a 60-year-old male with hypertension, hyperlipidemia, GERD who presents for follow up of seropositive RA Interval History: Patient last seen 12/14/24 with me. - On Hydroxychloroquine 200mg bid - He notes that he has some good days and bad days - Showed me a photo of his right knee swelling. This resolved on its own. - Notes pain in his joints especially when the weather is cold - joint pain attributed to polyarticular osteoarthritis and recommended topical diclofenac Today - Hydroxychloroquine 200mg bid and topical diclofenac - Not doing the topical diclofenac consistently - Complains of intermittent knee pain and low back pain with radicular sx Rheumatologic History: Ddx UCTD 03/2024 Started plaquenil 03/2024 - effective Initial history: This is a 59-year-old male who presents for evaluation of a positive rheumatoid factor in the setting of polyarthralgias. He states that last November he woke up 1 day with right knee pain and swelling, the swelling self- resolved next day. He had similar pain and swelling of his right knee in 2020. It self-resolved. He states however that he has different pains in different joints such as his wrists, other knee, ankles. He wakes up with fatigue that can last anywhere from half an hour or until the evening. 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 He states that he was vaccinated for hepatitis. Current Rheumatology Medication(s): Plaquenil 400mg daily Topical diclofenac [facility] Medical History Pain in joint, multiple sites Seropositive rheumatoid arthritis Myalgia Rheumatoid factor positive Diabetes mellitus Chronic pain of right groin Hyperlipidemia Hypertension History of left inguinal hernia Surgical History History of right inguinal hernia repair History of esophagogastroduodenoscopy (EGD) Hx of colonoscopy History of nasal surgery History of back surgery Family History Brother Diabetes Mother Cancer Father Heart problem Maternal Grandmother Colon polyps Lupus Maternal Aunt Rheumatoid arthritis Maternal Uncle Rheumatoid arthritis Social History Household Members: Spouse Alcohol intake: current Alcohol intake frequency: holidays/special occasions only Patient Tobacco Use Status: Never used Tobacco Current occupational status: disabled Review of Systems Const Details: Review of Systems Constitutional: Denies fever, chills, weight loss ENT: Denies vision changes, eye pain or eye redness, dental caries, dry mouth GI: Denies nausea, vomiting, diarrhea, abdominal pain, change in BM Pulm: Denies SOB, AGUILAR, hemoptysis, wheezing Cards: Denies chest pain, palpitations Skin: Denies Raynaud's, rash, nail changes, photosensitivity, SECONDARY SCHOOL TEACHER: Denies headaches, weakness, paresthesias, recurrent falls MSK: as per HPI All other systems reviewed and are unremarkable except noted above Physical Exam Exam Exam: Vital signs reviewed Physical Examination CONSTITUITIONAL Patient alert and cooperative. Well appearing and in no apparent painful distress MSK Hands * Right Hand: Able to make a fist. No swelling or tenderness to palpation of the MCPs, PIPs or DIPs. * Left Hand: Able to make a fist. No swelling or tenderness to palpation of the MCPs, PIPs or DIPs. * Herbedens nodes noted bilaterally Wrists * Right Wrist: Full ROM to flexion and extension. No swelling or TTP * Left Wrist: Full ROM to flexion and extension. No swelling or TTP Elbows * Right Elbow: Full ROM. No swelling or TTP. No TTP of the medial epicondyle. No TTP of the lateral epicondyle * Left Elbow: Full ROM. No swelling or TTP. No TTP of the medial epicondyle. No TTP of the lateral epicondyle Shoulders * Right shoulder: Full ROM. No swelling noted. No TTP of the AC joint. No TTP of the subacromial bursa. No TTP of the posterior shoulder * Left shoulder: Full ROM. No swelling noted. No TTP of the AC joint. No TTP of the subacromial bursa. No TTP of the posterior shoulder Knees * Right knee: Full ROM. No swelling noted. No TTP of the knee joint line. No TTP of pes anserine bursa * Left knee: Full ROM. No swelling noted. No TTP of the knee joint line. No TTP of pes anserine bursa. * Crepitations felt bilaterally Ankles * Right ankle: Good ankle dorsiflexion and plantar flexion. No swelling. No TTP of the ankle joint * Left ankle: Good ankle dorsiflexion and plantar flexion. No swelling. No TTP of the ankle joint Feet * Right foot: Negative squeeze test * Left foot: Negative squeeze test Tender points? * No tenderness to palpation of the bilateral trapezius, supraspinatus, anterior costochondral junctions, bilateral suboccipital muscle insertions SKIN No rashes Vital Signs: Last Vital Signs Pulse 71 04/07/25 14:30 BP 124/80 04/07/25 14:30 Pulse Ox 96 04/07/25 14:30 Oxygen Delivery Method Room Air 04/07/25 14:30 BMI result Body Mass Index 29.2 Results Reviewed Results Reviewed: Laboratory Tests 10/07/23 03/31/24 12/14/24 08:33 16:20 15:06 WBC 7.5 RBC 5.11 Hgb 14.4 Hct 41.9 L Plt Count 180 ESR 2 Sodium 137 Potassium 4.1 Chloride 101 Carbon Dioxide 28 BUN 19 H Creatinine 0.90 AST 30 ALT 37 C-Reactive Protein 0.18 Rheumatoid Factor 56.4 H Cycl Citrul Peptide IgG <16 XR Bilateral Knees 11/2023 FINDINGS: Right knee: There is chondrocalcinosis. Patellofemoral compartment marginal osteophytes without joint space narrowing indicative of mild osteoarthritis. The medial lateral compartments are normal. No effusion. No erosions. Left knee: There is chondrocalcinosis. There are small marginal osteophytes about the lateral compartment and patellofemoral compartment indicative of mild arthrosis. No joint space narrowing. Compartment unremarkable other than chondrocalcinosis. There is a bony excrescence extending off the posterior lateral aspect of the tibia likely reflecting a sessile osteochondroma no visible cartilaginous cap. Surrounding soft tissues unremarkable. IMPRESSION: RIGHT KNEE: Chondrocalcinosis. Mild osteoarthritis. LEFT KNEE: Chondrocalcinosis. Mild osteoarthritis. Sessile osteochondroma. XR Hands Bilateral 11/2023 FINDINGS: Right hand: The bones joints and soft tissues are normal. No erosions. Normal alignment. Left hand: The bones joints and soft tissues are normal. No erosions. Normal alignment. IMPRESSION: RIGHT HAND: Normal. LEFT HAND: Normal. Assessment & Plan Assessment & Plan (1) Seropositive rheumatoid arthritis: Comment: +RF -CCP Plaquenil 03/2024 Code(s): M05.9 - Rheumatoid arthritis with rheumatoid factor, unspecified Category: Medical Plan: #Seropositive RA Patient is a 60-year-old male with hypertension who presents for follow up of seropositive RA. In the past he had had did not have any response to prednisone but has had good response to Plaquenil. Given his positive RF, strong family history is likely that he has either early rheumatoid arthritis or potentially palindromic rheumatoid arthritis. Continues to do well on Plaquenil and we will continue Plan - Hydroxychloroquine 200mg bid - RTC 6 months - Labs before visit: CBC, CMP, ESR, CRP (2) Generalized osteoarthritis: Code(s): M15.9 - Polyosteoarthritis, unspecified Plan: #Polyarticular OA Continue conservative measures Plan - Topical diclofenac 1% qid (3) Long-term use of hydroxychloroquine: Code(s): Z79.899 - Other rn long term care (current) drug therapy Category: Medical Plan: #Long-term Use of Hydroxychloroquine Discussed with patient the risks and benefits of hydroxychloroquine in managing the rheumatic condition Benefits include: - Reduced pain, reduce mortality, maintenance of remission and reduction of flares Risks include: - GI upset, skin hyperpigmentation, retinal toxicity (especially after more than 5 years of use), myopathy Advised yearly ophthalmology visits Plan I spent 35 minutes reviewing the record and labs, taking a history, examining the patient, discussing the treatment plan, answering questions, and documenting in the medical record Coding Level of Care Code Est Pt Level 4 (04949) Complex EM visit Add On G2211 Diagnoses Seropositive rheumatoid arthritis M05.9 Generalized osteoarthritis M15.9 Long-term use of hydroxychloroquine Z79.899
[2025-04-07 14:30] VITALS: BP 124/80; PULSE 71; O2SAT 96; BMI 29.2
== END 2025-04-07 15:02 | disposition home or self-care (01) ==
LOC: HO.RHES 14:14
PROVIDERS: PCP Registered Nurse; Referring Provider Registered Nurse; Visit Provider Student in an Organized Health Care Education/Training Program
DX: M05.9 Rheumatoid arthritis with rheumatoid factor, unspecified (principal); M15.9 Polyosteoarthritis, unspecified; Z79.899 Other long term (current) drug therapy
CPT/HCPCS: 99214

== ENCOUNTER → 2025-04-07 14:13 | Outpatient (BNVA) | payer MEDICAID, SELFPAY | PROVIDERS: PCP Registered Nurse; Visit Provider Student in an Organized Health Care Education/Training Program | DX: M05.79 Rheumatoid arthritis with rheumatoid factor of multiple sites without organ or systems involvement (principal); M15.9 Polyosteoarthritis, unspecified; I10 Essential (primary) hypertension; Z79.899 Other long term (current) drug therapy | CPT/HCPCS: 99212 ==

== ENCOUNTER 2025-05-18 08:36 | Outpatient (REF) | payer MEDICAID, SELFPAY ==
--- NOTE | ~2025-05-18 | US_ITS ---
CLINICAL HISTORY: R10.9 - Unspecified abdominal pain --- Additional Notes or Special Instructions: right sided pain and swelling after lifting in a pt with previous rt US abdomen complete Comparison: None Provided Findings: Gallbladder normal without stones or wall thickening. Incidental 3 mm gallbladder wall polyp. Common duct measures 4.1 mm. No sonographic Delgado sign. Fatty infiltration liver with focal fatty sparing. Right lobe measures 16.2 cm in length. Main portal vein patent with normal direction of flow. Pancreas is unremarkable. Aorta and IVC patent and normal in caliber. The right kidney is normal, 11.5 cm in length. No focal abnormality or hydronephrosis. The left kidney is normal, 11.3 cm in length. No focal abnormality or hydronephrosis. The spleen is normal, 9.4 cm in length. No focal abnormality. Impression: Fatty infiltration of the liver, otherwise unremarkable This document has been electronically signed by: Miguel Ángel Keane MD on 05/18/2025 21:50:25
== END 2025-05-18 08:37 | disposition home or self-care (01) ==
LOC: HO.US 08:36
PROVIDERS: PCP Registered Nurse; Visit Provider Nurse Practitioner
DX: R10.9 Unspecified abdominal pain (principal); R19.00 Intra-abdominal and pelvic swelling, mass and lump, unspecified site; Z98.890 Other specified postprocedural states
CPT/HCPCS: 76700

== ENCOUNTER → 2025-05-18 08:39 | Outpatient (BNV) | payer MEDICAID, SELFPAY | PROVIDERS: PCP Registered Nurse; Visit Provider Radiology Diagnostic Radiology | DX: K76.0 Fatty (change of) liver, not elsewhere classified (principal) | CPT/HCPCS: 76700 ==